=== PATIENT | male | born 1955 | race Caucasian/White ===

== ENCOUNTER 2019-11-29 13:55 | Inpatient (IN) ==
[2019-11-29] MEDS ORDERED: NS 1,000 ML IV ONE (14:21)
[2019-11-29 14:52] LABS: URINE SOURCE CATH
[2019-11-29 14:59] LABS: BILIRUBIN URINE NEGATIVE (NEGATIVE); BLOOD URINE NEGATIVE (NEGATIVE); CLARITY CLEAR (CLEAR); COLOR YELLOW; GLUCOSE URINE 100 mg/dL (NEGATIVE); KETONE URINE NEGATIVE (NEGATIVE); LEUKOCYTES URINE NEGATIVE (NEGATIVE); NITRITE URINE NEGATIVE (NEGATIVE); PH URINE 5.5; PROTEIN URINE NEGATIVE (NEGATIVE); SP GRAVITY URINE 1.015; UROBILINOGEN URINE 0.2 EU/dL (0.2-1.0)
[2019-11-29 14:59] LABS: BASO# 0.02 X1000 (0.0-0.2); BASO% 0.1 % (0.0-0.8); EOS# 0.05 X1000 (0.0-0.7); EOS% 0.2 % (0.0-10.0); HEMATOCRIT 44.1 % (42.0-52.0); HEMOGLOBIN 14.7 g/dL (14.0-18.0); IMM GRAN# 0.17 X1000 (0.0-0.04); IMM GRAN% 0.8 % (0.0-0.5); LYMPH# 2.74 X1000 (1.2-3.4); LYMPH% 13.5 % (20.5-51.1); MCH 32.7 PG (27-31); MCHC 33.3 g/dL (33-37); MCV 98.2 FL (81-99); MONO# 1.12 X1000 (0.11-0.59); MONO% 5.5 % (1.7-9.3); MPV 10.8 FL (7.4-10.4); NEUT# 16.27 X1000 (1.4-6.5); NEUT% 79.9 % (42.2-75.2); PLT 311 X1000 (130-400); RBC 4.49 XMIL (4.7-6.1); RDW 13.3 % (11.5-14.5); WBC 20.37 X1000 (4.8-10.8)
[2019-11-29 15:05] LABS: INR 1.37; PROTIME 17.1 Seconds (11.0-16.0); PTT 29.3 Seconds (22.3-41.8)
[2019-11-29 15:09] LABS: UR AMPHETAMINES QUAL NONE DETECTED (NONE DETECT); UR BARBITUATES QUAL NONE DETECTED (NONE DETECT); UR BENZODIAZEPIN QUAL NONE DETECTED (NONE DETECT); UR CANNABINOIDS QUAL NONE DETECTED (NONE DETECT); UR COCAINE QUAL NONE DETECTED (NONE DETECT); UR METHADONE QUAL NONE DETECTED (NONE DETECT); UR OPIATES QUAL NONE DETECTED (NONE DETECT); UR OXYCODONE QUAL NONE DETECTED (NONE DETECT); UR PCP QUAL NONE DETECTED (NONE DETECT)
[2019-11-29 15:15] LABS: URINE BACTERIA NEGATIVE /HFP; URINE EPITHELIAL CELLS <10 /HPF (<10); URINE RBC <10 /HPF (<10); URINE WBC <10 /HPF (<10)
[2019-11-29 15:16] LABS: URINE CAST NONE SEEN /LPF; URINE CRYSTAL NONE SEEN /HPF; URINE YEAST NONE SEEN /HPF
--- NOTE | 2019-11-29 15:16 | Diag Imaging Result Doc PS360 ---
EXAM: CHEST-PORTABLE HISTORY: altered mental status TECHNIQUE: Single view COMPARISON: None. FINDINGS: The lungs are well expanded. The heart is not enlarged. The vessels are not distended. There are no infiltrates. No effusion identified. IMPRESSION: Negative exam. Electronically signed by Shan De 11/29/2019 3:14 PM
[2019-11-29 15:21] LABS: ALB/GLOB RATIO 1.2; ALBUMIN 3.9 g/dL (3.5-5.0); CALCIUM 9.2 mg/dL (8.8-10.2); MAGNESIUM 2.7 mg/dL (1.5-2.7); POTASSIUM 3.7 mmol/L (3.5-5.1); TOTAL BILIRUBIN 0.18 mg/dL (0.20-1.00); TOTAL PROTEIN 7.1 g/dL (6.3-8.3)
--- NOTE | 2019-11-29 15:22 | Diag Imaging Result Doc PS360 ---
EXAM: CT HEAD W/O CONTRAST HISTORY: Head injury TECHNIQUE: CT head without intravenous contrast COMPARISON: None. FINDINGS: No parenchymal hemorrhage. No epidural or subdural hematoma. No subarachnoid hemorrhage. There is mild atrophy with chronic microvascular ischemic changes. No mass identified on this noncontrasted exam. No hydrocephalus. No skull fracture. IMPRESSION: No hemorrhage. No injury. This exam was performed using automated exposure control, adjustment of mA or kV according to patient size, and/or use of iterative reconstruction technique. Electronically signed by Shan De 11/29/2019 3:20 PM
[2019-11-29 15:26] LABS: T4 4.05 ug/dL (4.60-12.00); TSH 2.68 uIUmL (0.27-4.20)
[2019-11-29 15:28] LABS: ALLEN TEST YES; BLOOD TYPE ARTERIAL; METHB 0.8 % (0.0-1.5); O2(CT) 18.9 mL/dL (15.0-23.0); PCO2(98.6) 16 mmHg (35-45); PO2(98.6) 173 mmHg (60-100); SAMPLE BLOOD; SAO2 99.3 % (95.0-100.0); THB 13.6 g/dL (11.5-17.4)
[2019-11-29 15:31] LABS: LACTATE > 20.00 mmoll (0.44-2.22); MODALITY ROOM AIR; pH(98.6) < 6.80 (7.35-7.45)
[2019-11-29] MEDS ORDERED: SOLU-CORTEF IV ONE (15:42)
[2019-11-29] MEDS ORDERED: SODIUM CHLORIDE 0.9% INJ ONE (15:42)
[2019-11-29] MEDS ORDERED: SYNTHROID IV ONE (15:42)
[2019-11-29] MEDS ORDERED: ZOSYN 3.375 GM in NS 50 ML IV ONE (15:43)
[2019-11-29] MEDS ORDERED: SODIUM BICARBONATE 8.4% IV ONE (15:43)
[2019-11-29 15:45] LABS: CK INDEX 0.6 (0.0-2.5); CK-MB 23.36 ng/mL (0.0-5.0)
[2019-11-29] MEDS ORDERED: 1/2 NS 1,000 ML IV ONE (15:50)
[2019-11-29] MEDS ORDERED: THIAMINE 100 MG in NS 50 ML IV ONE (15:58)
--- NOTE | 2019-11-29 16:24 | PROVIDER DOCUMENTATION ---
This chart was entered by Jael Fritz Scribe, acting as scribe for Luis M Schmid MD. HPI-General Adult - General Chief Complaint: Altered Mental Status Stated Complaint: ETOH Time Seen by Provider: 11/29/19 14:14 Source: family (daughter and sister), EMS Unable to obtain history due to:: altered Allergies/Adverse Reactions: Patient Allergies Allergy/AdvReac Type Severity Reaction Status Date / Time No Known Allergies Allergy Verified 07/03/13 02:07 Home Medications: Home Medication List Medication Instructions Recorded Confirmed Last Taken Type AMLODIPINE/BENAZEpril [Lotrel 03/10 1 each PO DAILY #30 capsule 07/01/13 07/03/13 Unknown Rx mg] Glimepiride [Amaryl] 4 mg PO AC + HS 30 Days tablet 07/01/13 07/03/13 07/02/13 21:00 Rx Insulin Glargine [Lantus] 25 unit SUBQ DAILY #1 vial 07/01/13 07/03/13 Unknown Rx Syringe,Needle,Insuln,Sf 0.5ML 1 each QAM #10 disp.syrin 07/01/13 07/03/13 Unknown Rx [Easy Touch Insulin Safety] Ciprofloxacin HCl [Cipro] 500 mg PO BID #20 tablet 10/20/17 Unknown Rx Finasteride [Proscar] 5 mg PO DAILY #90 tablet 10/20/17 Unknown Rx Tamsulosin [Flomax] 0.4 mg PO DAILY #90 capsule 10/20/17 Unknown Rx - History of Present Illness -Gen Adult Nature of Presenting Problems: 64yom presents to ED by EMS cc possible ETOH according to EMS. EMS reports they were called by a neighbor of pt who brought him food and found pt passed out under bed and whiskey bottles all over floor. EMS reports pt had no heat on in house. 3pm....Daughter and Sister are now at bedside and report pt has hx of alcoholism and yesterday posted on FB that he was really missing his who a long time ago. Daughter denies pt having access to any pills that he could OD on and says he drinks regularly claiming it regulates his blood sugar so he doesn't have to take blood sugar pills. Daughter reports pt has no utilities connected at his house, uses a generator but when weather gets really cold he stays in one of her homes but didn't last night. Pt b/p is 86/47 and rectal temp is 85 in ED. Pt has smell of alcohol on breath and very agitated upon exam. Pt has hx of HTN and DM. Similar Symptoms Previously?: No Recently seen or treated by another doctor?: No Review of Systems - Adult - REVIEW OF SYSTEMS - ADULT ROS:: unobtainable per condition Constitutional: reports: see HPI Eyes: reports: see HPI Ears, Nose, Mouth & Throat: reports: see HPI Cardiovascular: reports: see HPI Respiratory: reports: see HPI Gastrointestinal: reports: see HPI Genitourinary: reports: see HPI Musculoskeletal: reports: see HPI Integumentary: reports: see HPI Neurological: reports: see HPI Psychiatric: reports: see HPI Endocrine: reports: see HPI Hematologic/Lymphatic: reports: see HPI Allergic/Immunologic: reports: see HPI All Other Systems: Reviewed and Negative Past History - Adult - PAST MEDICAL HISTORY-ADULT Review of Records: reports: Old Records Reviewed, Nursing Assessment Review, Medications Reviewed, Social history reviewed & non-contributory. Major Childhood Illnesses: reports: denies history Cardiovascular: reports: HTN Respiratory: reports: denies history Gastrointestinal: reports: denies history Obstetrical/Gynecological: reports: denies history Genitourinary: reports: denies history Musculoskeletal: reports: denies history Neurological: reports: denies history Endocrine/Immune: reports: Diabetes Other Conditions: reports: denies history - IMMUNIZATION STATUS Childhood Immunizations: See Nurse Assessment Flu Vaccine: See Nurse Assessment - FAMILY HISTORY Family History: reviewed, not pertinent Physical Exam-General - PHYSICAL EXAM-ADULT Exam Limited by: pt very agitated, moving all over Initial Vital Signs Reviewed: Yes - CONSTITUTIONAL General Appearance: anxious - EYES Eyes: PERRL/EOMI, pink conjunctivae - HEAD, EARS, NOSE, MOUTH & THROAT HENMT: normocephalic/atraumatic, moist mucous membranes - NECK Neck: supple, normal inspection - RESPIRATORY Respiratory: chest non-tender, lungs clear, normal breath sounds. negative: wheezing - CARDIOVASCULAR Cardiovascular: normal peripheral pulses, regular rate, rhythm, no edema. negative: bradycardia, tachycardia - SKIN Integumentary: normal color. negative: diaphoresis, rash - PSYCHIATRIC Psych/Mental Status: anxious Progress - PLAN OF CARE/RESULTS Progress/Plan/Lab Results: Vital Signs - 8 hr 11/29/19 13:56 Temperature 85 F L Pulse Rate 66 Respiratory Rate 16 Blood Pressure 86/47 O2 Sat by Pulse Oximetry 98 Laboratory Results - last 24 hr 11/29/19 11/29/19 11/29/19 14:10 14:10 14:10 WBC 20.37 H RBC 4.49 L Hgb 14.7 Hct 44.1 MCV 98.2 MCH 32.7 H MCHC 33.3 RDW Std Deviation 13.3 Plt Count 311 MPV 10.8 H Immature Gran % (Auto) 0.8 H Neut % (Auto) 79.9 H Lymph % (Auto) 13.5 L [place] % (Auto) 5.5 Eos % (Auto) 0.2 Baso % (Auto) 0.1 Immature Gran # (Auto) 0.17 H Neut # (Auto) 16.27 H Lymph # (Auto) 2.74 [place] # (Auto) 1.12 H Eos # (Auto) 0.05 Baso # (Auto) 0.02 PT INR PTT ([place] FS) Sodium Potassium Chloride Carbon Dioxide Anion Gap BUN Creatinine Estimated GFR/1.73 m2 BUN/Creatinine Ratio Glucose POC Glucose 129 H Calculated Osmolality Calcium Magnesium Total Bilirubin AST ALT Alkaline Phosphatase Creatine Kinase Troponin T High Sens Total Protein Albumin Globulin Albumin/Globulin Ratio Plasma Lactate Urine Source Urine Color Urine Clarity Urine Turbidity Urine pH Ur Specific [place] Urine Protein Ur Glucose (Stick) Urine Ketones Ur Ketones (Stick) Urine Blood Urine Nitrite Urine Bilirubin Urine Urobilinogen Urobilinogen Dipstick Urine Leukocytes Urine WBC (Auto) Urine RBC (Auto) U Epithel Cells (Auto) Urine Bacteria (Auto) Urine Microscopic RBC Urine WBC Urine Microscopic WBC Ur Epithelial Cells Urine Crystals Urine Bacteria Urine Casts Urine Yeast Urine Glucose Urine Opiates Screen Ur Oxycodone Screen Ur Methadone, Qual Ur Barbiturates Screen Ur Phencyclidine Scrn Ur Amphetamines Screen U Benzodiazepines Scrn Urine Cocaine Screen U Cannabinoids Screen Plasma/Serum Ethyl Alc 300 H 11/29/19 11/29/19 11/29/19 14:10 14:10 14:10 WBC RBC Hgb Hct MCV MCH MCHC RDW Std Deviation Plt Count MPV Immature Gran % (Auto) Neut % (Auto) Lymph % (Auto) [place] % (Auto) Eos % (Auto) Baso % (Auto) Immature Gran # (Auto) Neut # (Auto) Lymph # (Auto) [place] # (Auto) Eos # (Auto) Baso # (Auto) PT 17.1 H INR 1.37 PTT (Actin FS) 29.3 Sodium 150 H Potassium 3.7 Chloride 100 Carbon Dioxide 3 L Anion Gap 47 BUN 35 H Creatinine 2.0 H Estimated GFR/1.73 m2 30 BUN/Creatinine Ratio 18 Glucose 159 H POC Glucose Calculated Osmolality 309 Calcium 9.2 Magnesium 2.7 Total Bilirubin 0.18 L AST 88 H ALT 41 Alkaline Phosphatase 90 Creatine Kinase 3440 H Troponin T High Sens Total Protein 7.1 Albumin 3.9 Globulin 3.2 Albumin/Globulin Ratio 1.2 Plasma Lactate 28.3 H* Urine Source Urine Color Urine Clarity Urine Turbidity Urine pH Ur Specific [place] Urine Protein Ur Glucose (Stick) Urine Ketones Ur Ketones (Stick) Urine Blood Urine Nitrite Urine Bilirubin Urine Urobilinogen Urobilinogen Dipstick Urine Leukocytes Urine WBC (Auto) Urine RBC (Auto) U Epithel Cells (Auto) Urine Bacteria (Auto) Urine Microscopic RBC Urine WBC Urine Microscopic WBC Ur Epithelial Cells Urine Crystals Urine Bacteria Urine Casts Urine Yeast Urine Glucose Urine Opiates Screen Ur Oxycodone Screen Ur Methadone, Qual Ur Barbiturates Screen Ur Phencyclidine Scrn Ur Amphetamines Screen U Benzodiazepines Scrn Urine Cocaine Screen U Cannabinoids Screen Plasma/Serum Ethyl Alc 11/29/19 11/29/19 11/29/19 14:10 14:30 14:30 WBC RBC Hgb Hct MCV MCH MCHC RDW Std Deviation Plt Count MPV Immature Gran % (Auto) Neut % (Auto) Lymph % (Auto) [place] % (Auto) Eos % (Auto) Baso % (Auto) Immature Gran # (Auto) Neut # (Auto) Lymph # (Auto) [place] # (Auto) Eos # (Auto) Baso # (Auto) PT INR PTT (Actin FS) Sodium Potassium Chloride Carbon Dioxide Anion Gap BUN Creatinine Estimated GFR/1.73 m2 BUN/Creatinine Ratio Glucose POC Glucose Calculated Osmolality Calcium Magnesium Total Bilirubin AST ALT Alkaline Phosphatase Creatine Kinase Troponin T High Sens 23 H Total Protein Albumin Globulin Albumin/Globulin Ratio Plasma Lactate Urine Source Cancelled Urine Color Cancelled Urine Clarity Urine Turbidity Cancelled Urine pH Cancelled Ur Specific [place] Cancelled Urine Protein Cancelled Ur Glucose (Stick) Cancelled Urine Ketones Ur Ketones (Stick) Cancelled Urine Blood Cancelled Urine Nitrite Cancelled Urine Bilirubin Cancelled Urine Urobilinogen Urobilinogen Dipstick Cancelled Urine Leukocytes Cancelled Urine WBC (Auto) Cancelled Urine RBC (Auto) Cancelled U Epithel Cells (Auto) Cancelled Urine Bacteria (Auto) Cancelled Urine Microscopic RBC Urine WBC Urine Microscopic WBC Ur Epithelial Cells Urine Crystals Urine Bacteria Urine Casts Urine Yeast Urine Glucose Urine Opiates Screen NONE DETECTED Ur Oxycodone Screen NONE DETECTED Ur Methadone, Qual NONE DETECTED Ur Barbiturates Screen NONE DETECTED Ur Phencyclidine Scrn NONE DETECTED Ur Amphetamines Screen NONE DETECTED U Benzodiazepines Scrn NONE DETECTED Urine Cocaine Screen NONE DETECTED U Cannabinoids Screen NONE DETECTED Plasma/Serum Ethyl Alc 11/29/19 14:30 WBC RBC Hgb Hct MCV MCH MCHC RDW Std Deviation Plt Count MPV Immature Gran % (Auto) Neut % (Auto) Lymph % (Auto) [place] % (Auto) Eos % (Auto) Baso % (Auto) Immature Gran # (Auto) Neut # (Auto) Lymph # (Auto) [place] # (Auto) Eos # (Auto) Baso # (Auto) PT INR PTT (Actin FS) Sodium Potassium Chloride Carbon Dioxide Anion Gap BUN Creatinine Estimated GFR/1.73 m2 BUN/Creatinine Ratio Glucose POC Glucose Calculated Osmolality Calcium Magnesium Total Bilirubin AST ALT Alkaline Phosphatase Creatine Kinase Troponin T High Sens Total Protein Albumin Globulin Albumin/Globulin Ratio Plasma Lactate Urine Source CATH Urine Color YELLOW Urine Clarity CLEAR Urine Turbidity Urine pH 5.5 Ur Specific [place] 1.015 Urine Protein NEGATIVE Ur Glucose (Stick) Urine Ketones NEGATIVE Ur Ketones (Stick) Urine Blood NEGATIVE Urine Nitrite NEGATIVE Urine Bilirubin NEGATIVE Urine Urobilinogen 0.2 Urobilinogen Dipstick Urine Leukocytes Urine WBC (Auto) Urine RBC (Auto) U Epithel Cells (Auto) Urine Bacteria (Auto) Urine Microscopic RBC <10 Urine WBC NEGATIVE Urine Microscopic WBC <10 Ur Epithelial Cells <10 Urine Crystals NONE SEEN Urine Bacteria NEGATIVE Urine Casts NONE SEEN Urine Yeast NONE SEEN Urine Glucose 100 A Urine Opiates Screen Ur Oxycodone Screen Ur Methadone, Qual Ur Barbiturates Screen Ur Phencyclidine Scrn Ur Amphetamines Screen U Benzodiazepines Scrn Urine Cocaine Screen U Cannabinoids Screen Plasma/Serum Ethyl Alc Orders Category Date Time Status Cardiac Monitoring DIRECTED Care 11/29/19 14:19 Active Misc. NRSG Communication Order DIRECTED Care 11/29/19 14:22 Active Oxygen Therapy- ED Nursing DIRECTED Care 11/29/19 14:19 Active Saline Loc NOW Care 11/29/19 14:19 Active Warming [place] DIRECTED Care 11/29/19 14:21 Active CHEST-PORTABLE [RAD] Stat Exams 11/29/19 14:[address] HEAD W/O CONTRAST [CT] Stat Exams 11/29/19 14:19 Completed ABG [RESP] Routine Lab 11/29/19 14:19 Ordered ALCOHOL BLOOD Stat Lab 11/29/19 14:10 Completed BLOOD CULTURE [BLDCUL] Stat Lab 11/29/19 14:10 Ordered CBC WITH ELECTRONIC DIFF [HEME] Stat Lab 11/29/19 14:10 Completed CK PROFILE [SP CHEM] Stat Lab 11/29/19 14:10 Results COMPREHENSIVE METABOLIC PANEL [CHEM] Stat Lab 11/29/19 14:10 Results LACTATE, PLASMA [CHEM] Stat Lab 11/29/19 14:10 Completed MAGNESIUM [CHEM] Stat Lab 11/29/19 14:10 Results PROTIME WITH INR [COAG] Stat Lab 11/29/19 14:10 Completed PTT [COAG] Stat Lab 11/29/19 14:10 Completed T4 Stat Lab 11/29/19 14:10 Received TROPONIN T HIGH SENSITIVITY Stat Lab 11/29/19 14:10 Completed TSH Stat Lab 11/29/19 14:10 Received URINE DRUG SCREEN Stat Lab 11/29/19 14:30 Completed 0.9% Sodium Chloride Inj [Ns] 1,000 ml Med 11/29/19 14:21 Discontinued IV 999 mls/hr Altered Mental Status Stat Oth 11/29/19 14:19 Ordered EKG [EKG] Stat Ther 11/29/19 14:19 Ordered Result Diagrams: 11/29/19 14:10 11/29/19 14:10 - REASSESSMENT Reassessment #3 Time Reassessed: 16:15 Status: improving ((only as regards core temp): pt has profound metabolic acidemia as well as elev anion gap, however calc osm of 388 corresponds ~ well w/ mOsm reported @ 407; doubt methanol/eth-glycol ingestion. lab evidence of rhabdo, as well as ? hypothyroidism: pt given IV levothyroxine and cortisol, empiric thiamine and Zosyn w/ blood cultures pending. remains conscious, BP unchanged, warm IVF continue. will consult for ICU admission.) - XRAY 1 XRAY: Bilateral XRAY Study: Chest Impression: See EMR Report (IMPRESSION: Negative exam. Electronically signed by Shan De 11/29/2019 3:14 PM) - CT/MRI 1 CT Study: Head Impression: See EMR Report (IMPRESSION: No hemorrhage. No injury. This exam was performed using automated exposure control, adjustment of mA or kV according to patient size, and/or use of iterative reconstruction technique. Electronically signed by Shan De 11/29/2019 3:20 PM) - CONSULTS/PCP/HOSPITALIST Notification #1 *Consult/PCP/Hospitalist*: Lilia Time Discussed: 16:05 Consult Disposition: Will see in ED, Admit Departure - Departure Date of Disposition Decision: 11/29/19 Time of Disposition Decision: 16:22 DIAGNOSIS: Hypothermia due to cold environment, Hypothyroidism, Alcohol intoxication, Rhabdomyolysis, High anion gap metabolic acidosis Disposition: ADMITTED INPATIENT 09 Certified Medical Emergency: Emergent Condition: Critical Referrals and Follow-Ups: None,PCP [Primary Care Provider] - - Critical Care Note This patient required my direct & personal management of CC.: Yes Total Time (mins): 105 Critical Care Statement: This patient required my direct personal management to treat or rule out processes, the absence of which, could potentiallly result in sudden, clinically significant life or limb threatening deterioration. Attestation - Physician/ NAVEEN Attestation Patient care was provided by Advanced Practice Provider:: No The physician spent face to face time with patient:: Yes Advanced Practice Provider documentation review:: Supervising physician onsite and consulted in the evaluation and care of this patient. The physician did have a face to face encounter with the patient. This chart was documented by the indicated scribe, (Jael Fritz Scribe) and accurately reflects the services I performed and decisions made by me, Luis M Schmid MD, as attested by the provider's signature.
[2019-11-29 17:21] LABS: ALLEN TEST NO; BLOOD TYPE ARTERIAL; O2(CT) 17.6 mL/dL (15.0-23.0); O2HB 96.6 % (95.0-99.0); PO2(98.6) 162 mmHg (60-100); SAMPLE BLOOD; THB 12.7 g/dL (11.5-17.4)
[2019-11-29 17:24] LABS: MODALITY ROOM AIR
[2019-11-29 17:25] LABS: PCO2(98.6) 13 mmHg (35-45); pH(98.6) < 6.80 (7.35-7.45)
[2019-11-29 17:26] LABS: LACTATE > 20.00 mmoll (0.44-2.22)
[2019-11-29 17:40] LABS: PHOSPHORUS 8.9 mg/dL (2.7-4.5)
[2019-11-29] MEDS: LEVOPHED 8 MG in D5 1/2 NS 250 ML IV SCH ×2 (18:00→23:50)
[2019-11-29] MEDS: SODIUM BICARBONATE 8.4% 150 MEQ in STERILE WATER INJ. 1,000 ML IV SCH (18:00)
[2019-11-29] MEDS ORDERED: NEO-SYNEPHRINE 50 MG in NS 250 ML IV SCH (19:30)
[2019-11-29] MEDS: ZYVOX 600 MG/D5W 600 MG/300 ML IVPB IV SCH (20:58)
[2019-11-29] MEDS: HUMALOG SUBQ SCH (21:00)
[2019-11-29 21:01] LABS: ALLEN TEST YES; BLOOD TYPE ARTERIAL; METHB 0.9 % (0.0-1.5); O2(CT) 17.9 mL/dL (15.0-23.0); PO2(98.6) 111 mmHg (60-100); SAMPLE BLOOD; SAO2 95.5 % (95.0-100.0); THB 13.6 g/dL (11.5-17.4)
[2019-11-29 21:07] LABS: MODALITY ROOM AIR
[2019-11-29 21:08] LABS: LACTATE > 20.00 mmoll (0.44-2.22); PCO2(98.6) 18 mmHg (35-45); pH(98.6) < 6.80 (7.35-7.45)
--- NOTE | 2019-11-29 21:25 | NEPHROLOGY CONSULTATION ---
DATE: 11/29/2019 REASON FOR CONSULTATION: Profound metabolic acidosis. History is obtained entirely from the staff and the daughter. HISTORY OF PRESENT ILLNESS: Mr. Contreras is a 64-year-old white male with a history of diabetes and hypertension and alcoholism. He drinks gin and drinks heavily to the point of passing out rather frequently. He was last seen by his daughter a week ago but she communicated with him by texting on yesterday and he seemed normal. Friends found him unresponsive today so he was brought to the emergency room for evaluation and treatment. His initial evaluation found blood pressure of 86/47 with respiratory rate recorded of 16, temperature of 85 degrees. He has been treated with IV fluid resuscitation and empiric broad-spectrum antibiotics. CT of the head was negative and chest x-ray was unrevealing. He is now on IV norepinephrine and a bicarbonate drip is being initiated. PAST MEDICAL HISTORY: Diabetes and hypertension, alcoholism. MEDICATIONS: Glipizide, amlodipine, benazepril. ALLERGIES: None known. SOCIAL HISTORY: As above. Perhaps an allusion to possible suicidal ideation. FAMILY HISTORY: Otherwise not obtainable. REVIEW OF SYSTEMS: Otherwise not obtainable. PHYSICAL EXAMINATION: Vital Signs: Blood pressure 86/47, heart rate 80. Hypothermic. General: He has eyes open and moves arms, legs, head randomly. Kussmaul breathing. Skin is warm and dry. Conjunctivae are pink. Pupils are equal, somewhat constricted. Oropharynx is clear, dry. Neck: Neck veins are not visible. Neck is supple. Trachea is midline. Heart: PMI is nondisplaced. Regular rate and rhythm. No murmurs. Lungs: Equal. No crackles. Accessory muscle use. No retractions. Abdomen: Scaphoid, soft. Diminished bowel sounds. No organomegaly, masses, no bruits. Extremities: No edema. Distal pulses not palpable. IMPRESSION: 1. Profound lactic acidosis. Osmolal gap is 4. He has not received metformin. I agree with aggressive volume resuscitation, bicarbonate drip, vasopressor support, broad-spectrum antibiotics. Presumed sepsis. I would consider CT scan of the abdomen when he is stable. His CK was 3700. We will follow this. Creatinine is 2.0 with BUN 35. Will reevaluate. He is at high risk for acute tubular necrosis. cc: Anshu Nelson MD
[2019-11-29 22:09] LABS: INR 1.53; PROTIME 18.6 Seconds (11.0-16.0)
[2019-11-29] MEDS ORDERED: SODIUM BICARBONATE 8.4% IV PUSH ONE (22:11)
[2019-11-29 22:20] LABS: ALB/GLOB RATIO 1.2; ALBUMIN 3.4 g/dL (3.5-5.0); CALCIUM 8.7 mg/dL (8.8-10.2); CREATININE 2.5 mg/dL (0.7-1.2); TOTAL BILIRUBIN 0.39 mg/dL (0.20-1.00); TOTAL PROTEIN 6.2 g/dL (6.3-8.3)
--- NOTE | 2019-11-29 23:59 | PROGRESS NOTE ---
DATE: 11/29/2019 HISTORY AND PHYSICAL ADDENDUM AND CRITICAL CARE PROGRESS NOTE: Patient brought in after being found largely unresponsive. On initial evaluation, he was found to be profoundly acidemic with pH less than 6.8, and profound lactic acidosis with a lactic acid of 28.3. On recheck, lactic acid remains greater than 20 and pH remains less than 6.8, despite fluids with bicarb, antibiotics, etc. Discussed the case with Nephrology and they do not believe that there is any role for dialysis here. They did recommend elective intubation as the patient's mental status has worsened, and He is not really protecting his airway very well. I discussed elective intubation with family and they are refusing at this time. However, they wish him to be full code in the event of an arrest, including intubation if it is emergently necessary but, again, clarified that they are refusing elective intubation at this time. Discussed that it is more likely to go poorly if we have to emergently intubate him in the middle of the night because he is crashing rather than intubating in a controlled fashion now but they remained adamant. The patient is on empiric antibiotics but the exact etiology of his profound lactic acidosis remains uncertain. There is no sign of limb ischemia or compartment syndrome. The abdomen is benign. mesenteric ischemia is a possibility but it would be difficult to evaluate for right now. We will see if we can get an ultrasound to assess blood flow to the mesentery, but that is likely to be of limited use. On reassessment, the patient's blood pressure remains low. He has been started on Levophed. Nearing max dose of Levophed, so we will also order Kj in case it becomes needed. Hypothermia is improving slowly, although he remains hypothermic. Increased bicarb drip to sterile water with 150 bicarb at 150 mL/h. Continue aggressive antibiotics, fluids, bicarb and monitor closely. Patient prognosis guarded to poor. TOTAL CRITICAL CARE: Time spent immediately available to the patient, examining patient, reviewing labs and imaging, and making medical decisions, approximately 1 hour. [facility]
--- NOTE | 2019-11-30 00:40 | HISTORY AND PHYSICAL ---
PRIMARY CARE PHYSICIAN: Tahira Garrett MD. CHIEF COMPLAINT: Unresponsive. HISTORY OF PRESENT ILLNESS: Mr. Roque is a 64-year-old gentleman who was brought in by EMS after they were called by a neighbor. The patient was found down, unresponsive with whiskey bottles all over the floor. There is no heat in his residence. Initial blood pressures were 80s/40s, his rectal temperature was 85. He was initially very agitated. Further workup in the ED showed a profound acidosis, an alcohol level of 300, a plasma lactate of 28, a CK of 3737, and a pH of less than 6.8. He has a started on the initial rewarming process. He underwent a head CT that did not show anything acute. He was empirically covered with antibiotics, given sodium bicarbonate, IV thiamine, IV levothyroxine, hydrocortisone. We have placed a consult with Dr. Nelson and currently rechecking an ABG. Surprisingly, he remains awake. He will follow some commands. He does not answer any questions really. He is profoundly dehydrated. We will admit him to the ICU. Continue with bicarb drip. Await Nephrology recommendations. Continue to follow his laboratory data closely and continue with further treatment and care. Monitor Closely in ICU. PAST MEDICAL HISTORY: Hypertension, diabetes mellitus type 2, alcohol abuse. FAMILY HISTORY: Father was murdered. Mother of cancer in 1978. SOCIAL HISTORY: He is a of 20 something years. He is an alcoholic. He drinks gin. Per daughter at bedside, he only drinks sips. However, per other family members and EMS point of view with bottles of empty gin in the house, it would appear that his drinking is more than that. They also report that he did leave a message on mylearnadfriend about missing his yesterday, but they denied him having access to any pills or overdosing. PAST SURGICAL HISTORY: None. MEDICATIONS: Amlodipine 10 mg p.o. daily, glipizide ER 5 mg tablet p.o. once daily, benazepril 20 mg p.o. once a day. ALLERGIES: No known drug allergies. REVIEW OF SYSTEMS: Hard to obtain secondary to the patient being altered. He is awake. He does look at you when you ask him questions. He does try to answer, but not correctly. He does attempt to squeeze hands. He is moving all his extremities. He is currently restrained with wrist restraints secondary to being agitated on arrival. PHYSICAL EXAMINATION: VITAL SIGNS: Initial rectal temperature was 85, heart rate 85, pulse 66, respirations 16, blood pressure was 86/47, O2 saturation was 98% on room air. GENERAL: Mr. Roque is a 64-year-old, unkempt, male lying on the stretcher. Penny Hugger in place. HEENT: Atraumatic, normocephalic. PERRL. Poor dentition. Mucous membranes are extremely dry. CARDIOVASCULAR: Irregularly, irregular. RESPIRATORY: Lung sounds clear bilaterally. ABDOMEN: Appeared to be soft, nontender, nondistended. EXTREMITIES: Lower extremities with faint pedal pulses. NEUROLOGIC: Again, patient was awake, did not really answer any questions. He would look at you, though, if you are talking to him. He did try to squeeze your hands. He was moving his extremities but still somewhat altered. DIAGNOSTIC DATA: 1. Chest x-ray, negative exam. 2. Head CT, no hemorrhage, no injury. LABORATORY DATA: White count 20, hemoglobin and hematocrit 14 and 44, platelet count is 311,000. ABG: The pH is less than 6.80, CO2 is 16, pO2 is 173, O2 saturation was 99% on room air. Lactate was greater than 20. Chemistry: Sodium 150, potassium 3.7, bicarb is 3, BUN 35, creatinine 2.0. Blood glucose is 159, AST 88. CK 3737. Plasma lactate was 28.3. TSH 2.68, T4 was 4.05. ASSESSMENT AND PLAN: 1. Profound High anion gap and metabolic acidosis. Unclear and probable multiple etiologies at this time. We have consulted Dr. Nelson for assistance. He has been given 2 amps of sodium bicarb. We have started him on a bicarb drip. We will do serial ABGs, serial CMPs. 2. Hypothermia due to cold environment. Rectal temp 85. They are slowly rewarming him with warming blankets and Penny Hugger. We will do serial PT and INRs. 3. Alcohol intoxication. Known Alcohol use, Alcohol level 300. We will recheck his alcohol level in the a.m. He was given IV thiamin, probably wait to initiate banana bags in the a.m. 4. Rhabdomyolysis. We will continue with IV hydration. 5. Hypothyroidism. He was given IV levothyroxine. 6. Hypotension. We have initiated him on levophed. 7. Extremely elevated plasma lactate. We will empirically cover him with Zyvox and Zosyn, cover him for aspiration pneumonia. We do not have any clear signs of infection at this time. 8. Diabetes mellitus. We will watch his blood sugars closely. His acetone level was negative. His blood glucose level is not that high, however, we will check a serum ketone level, currently pending. Check his blood sugars q.[address] him on sliding scale. 9. Further recommendation to follow physician evaluation, laboratory data and diagnostic data. Dictated by DILMA Hennessy for Chris Johnson MD cc: Tahira Garrett MD agree with the above. see separate critical care documentation. MTDD
[2019-11-30 00:55] LABS: ALLEN TEST YES; BLOOD TYPE ARTERIAL; METHB 0.9 % (0.0-1.5); O2(CT) 16.8 mL/dL (15.0-23.0); O2HB 92.1 % (95.0-99.0); PCO2(98.6) 32 mmHg (35-45); PO2(98.6) 95 mmHg (60-100); SAMPLE BLOOD; SAO2 94.8 % (95.0-100.0); THB 12.9 g/dL (11.5-17.4)
[2019-11-30 00:56] LABS: MODALITY CANNULA
[2019-11-30 01:00] LABS: pH(98.6) < 6.80 (7.35-7.45)
[2019-11-30 01:01] LABS: LACTATE > 20.00 mmoll (0.44-2.22)
[2019-11-30] MEDS: ZOSYN 2.25 GM in NS 50 ML IV SCH ×3 (01:03→20:06)
[2019-11-30 01:37] LABS: INR 1.52; PROTIME 18.6 Seconds (11.0-16.0)
[2019-11-30] MEDS ORDERED: SODIUM BICARBONATE 8.4% IV PUSH ONE (01:50)
[2019-11-30 01:57] LABS: ALB/GLOB RATIO 1.5; ALBUMIN 3.2 g/dL (3.5-5.0); CALCIUM 8.6 mg/dL (8.8-10.2); CREATININE 2.9 mg/dL (0.7-1.2); POTASSIUM 5.6 mmol/L (3.5-5.1); TOTAL BILIRUBIN 0.44 mg/dL (0.20-1.00); TOTAL PROTEIN 5.4 g/dL (6.3-8.3)
[2019-11-30] MEDS: SODIUM BICARBONATE 8.4% 150 MEQ in STERILE WATER INJ. 1,000 ML IV SCH ×3 (03:03→18:44)
[2019-11-30] MEDS ORDERED: LASIX IV ONE (04:36)
[2019-11-30] MEDS: LEVOPHED 8 MG in D5 1/2 NS 250 ML IV SCH ×3 (05:04→23:40)
[2019-11-30] MEDS: PITRESSIN 40 UNIT in NS 100 ML IV SCH ×2 (05:06→21:07)
[2019-11-30 05:23] LABS: ALLEN TEST YES; BLOOD TYPE ARTERIAL; PCO2(98.6) 68 mmHg (35-45); PO2(98.6) 64 mmHg (60-100); SAMPLE BLOOD; SAO2 87.8 % (95.0-100.0); THB 12.5 g/dL (11.5-17.4)
[2019-11-30 05:25] LABS: LACTATE > 20.00 mmoll (0.44-2.22); MODALITY VENTIMASK; O2HB 85.1 % (95.0-99.0); pH(98.6) < 6.80 (7.35-7.45)
[2019-11-30 06:13] LABS: INR 1.57; PROTIME 19.1 Seconds (11.0-16.0)
[2019-11-30 06:28] LABS: BASO# 0.02 X1000 (0.0-0.2); BASO% 0.1 % (0.0-0.8); HEMATOCRIT 39.1 % (42.0-52.0); HEMOGLOBIN 12.3 g/dL (14.0-18.0); LYMPH# 1.69 X1000 (1.2-3.4); LYMPH% 6.8 % (20.5-51.1); MCH 32.5 PG (27-31); MCHC 31.5 g/dL (33-37); MCV 103.2 FL (81-99); MONO% 7.6 % (1.7-9.3); MPV 10.7 FL (7.4-10.4); PLT 284 X1000 (130-400); RBC 3.79 XMIL (4.7-6.1); RDW 13.7 % (11.5-14.5); WBC 24.86 X1000 (4.8-10.8)
[2019-11-30 06:58] LABS: ESTIMATED GFR 18
[2019-11-30] MEDS: HUMALOG SUBQ SCH ×5 (07:00→21:32)
[2019-11-30 07:03] LABS: ALB/GLOB RATIO 1.5; ALBUMIN 3.2 g/dL (3.5-5.0); ALKALINE PHOSPHATASE 83 U/L (32-122); BUN 47 mg/dL (8-22); CALCIUM 8.1 mg/dL (8.8-10.2); CHLORIDE 91 mmol/L (98-107); COSMO 321; CREATININE 3.5 mg/dL (0.7-1.2); GLUCOSE 225 mg/dL (70-104); GOT 346 U/L (10-34); GPT 106 U/L (10-44); POTASSIUM 5.7 mmol/L (3.5-5.1); SODIUM 152 mmol/L (136-145); TCO2 10 mmol/L (25-35); TOTAL BILIRUBIN 0.57 mg/dL (0.20-1.00); TOTAL PROTEIN 5.3 g/dL (6.3-8.3)
--- NOTE | 2019-11-30 07:08 | Diag Imaging Result Doc PS360 ---
EXAM: CHEST-PORTABLE 11/30/2019 HISTORY: hypoxia,crackles bilaterally TECHNIQUE: AP portable at 0422 COMMENT: The inspiration is less optimal than on 11/29/2019. There are bibasilar opacities which were not previously present. There is increased pulmonary vascularity. IMPRESSION: Bibasilar pulmonary edema versus pneumonia plus minus atelectasis. Electronically signed by Phillip Carter 11/30/2019 7:06 AM
[2019-11-30 07:19] LABS: LYMPHS 6 % (21-51); SEGS 94 % (42-75)
[2019-11-30] MEDS: ZYVOX 600 MG/D5W 600 MG/300 ML IVPB IV SCH ×2 (07:36→18:12)
[2019-11-30] MEDS ORDERED: QUELICIN IV ONE (09:37)
[2019-11-30] MEDS ORDERED: AMIDATE IV ONE (09:37)
[2019-11-30] MEDS ORDERED: AMIDATE ONE (09:43)
[2019-11-30] MEDS ORDERED: QUELICIN ONE (09:43)
[2019-11-30] MEDS ORDERED: NORCURON ONE (09:51)
[2019-11-30] MEDS ORDERED: STERILE WATER INJ. ONE (09:52)
[2019-11-30] MEDS ORDERED: ZEMURON IV ONE ×2 (10:00→10:54)
[2019-11-30] MEDS: NEO-SYNEPHRINE 50 MG in NS 250 ML IV SCH ×2 (10:25→18:12)
--- NOTE | 2019-11-30 10:34 | EKG Report ---
Test Performed on : 11/30/2019 06:43:38 AM Test Reason : chest pain Blood Pressure : / mmHG Vent. Rate : 098 BPM Atrial Rate : 098 BPM P-R Int : 150 ms QRS Dur : 108 ms QT Int : 360 ms P-R-T Axes : 050 042 029 degrees QTc Int : 459 ms Normal sinus rhythm. Normal ECG When compared with ECG of 29-NOV-2019 15:45, (Unconfirmed) Sinus rhythm. has replaced Atrial fibrillation. ST no longer elevated in Inferior leads QT has shortened Unconfirmed Result
[2019-11-30] MEDS ORDERED: NORCURON IV ONE (11:05)
--- NOTE | 2019-11-30 11:10 | Diag Imaging Result Doc PS360 ---
EXAM: CHEST-PORTABLE 11/30/2019 HISTORY: intubation/ngt TECHNIQUE: AP portable at 1058 COMMENT: The NG tube is apparently doubled up in the upper esophagus. Endotracheal tube tip is at or slightly below the thoracic inlet. IMPRESSION: NG tube which is not in the stomach. Electronically signed by Phillip Carter 11/30/2019 11:08 AM
[2019-11-30 11:28] LABS: ALLEN TEST NO; BE -19.8 mmoll (-3.0-3.0); BLOOD TYPE ARTERIAL; HCO3-(ACT) 9.4 mmoll (20.0-26.0); METHB 1.3 % (0.0-1.5); PCO2(98.6) 39 mmHg (35-45); PO2(98.6) 84 mmHg (60-100); SAMPLE BLOOD; SRATE 24 BPM; THB 12.7 g/dL (11.5-17.4); TVOL 500 mL
[2019-11-30 11:31] LABS: LACTATE > 20.00 mmoll (0.44-2.22); MODALITY VENTILATOR; pH(98.6) 7.03 (7.35-7.45)
--- NOTE | 2019-11-30 12:21 | Diag Imaging Result Doc PS360 ---
EXAM: CHEST/ABD TUBE PLACEMENT 11/30/2019 HISTORY: ngt placement TECHNIQUE: AP chest and abdomen for NG tube placement, one view COMMENT: There is an NG tube with its tip in the distal stomach. IMPRESSION: NG tube in the stomach. Electronically signed by Phillip Carter 11/30/2019 12:19 PM
[2019-11-30] MEDS: FENTANYL 1,000 MICROGM in NS 80 ML IV SCH ×4 (14:14→23:40)
[2019-11-30 16:14] LABS: ALLEN TEST NO; BE -11.6 mmoll (-3.0-3.0); BLOOD TYPE ARTERIAL; HCO3-(ACT) 15.8 mmoll (20.0-26.0); METHB 1.2 % (0.0-1.5); O2(CT) 16.4 mL/dL (15.0-23.0); O2HB 93.1 % (95.0-99.0); PCO2(98.6) 39 mmHg (35-45); PO2(98.6) 67 mmHg (60-100); SAMPLE BLOOD; SAO2 95.7 % (95.0-100.0); SRATE 22 BPM; THB 12.5 g/dL (11.5-17.4); TVOL 500 mL; pH(98.6) 7.21 (7.35-7.45)
[2019-11-30 16:18] LABS: MODALITY VENTILATOR
--- NOTE | 2019-11-30 16:56 | PROGRESS NOTE ---
DATE: 11/30/2019 INTERVAL HISTORY: Patient with worsening encephalopathy. ABG showing respiratory decompensation with acute hypercapnic respiratory failure. Again discussed the possibility of intubation with family and this time they acquiesced. They continue to want everything done to try and keep him alive. Again, stressed the rather poor prognosis in general and the grim prognosis if he has a full arrest. They again reaffirmed that they want everything done. The patient was successfully intubated with the assistance of the ER physician. Post intubation, his ABG does actually show a little bit of improvement. His hypercapnia is significantly improved. His pH is actually slightly better, which is a first on this hospitalization. Lactic acid remains markedly elevated. He has also had increased pressor requirements. Was on Levophed last night, had to be started on vasopressin later. This morning still with increasing pressor requirements so Kj-Synephrine has been started as well. Discussed the case with Dr. Nelson with Nephrology and Dr. Mooney with Surgery. Dr. Nelson remains skeptical about the role of dialysis in this patient but is going to give it a try this afternoon. It may at least optimize his volume status some. Dr. Mooney has placed a vascular catheter towards that end. The possibility of exploratory laparoscopy was also discussed, but on last discussion, Anesthesiology was not willing to take the patient to the OR. The patient's original blood cultures are also now positive for gram-positive cocci. May end up being a contaminant, but will see. He is on antibiotics with Zyvox and Zosyn which should be adequate coverage for now. REVIEW OF SYSTEMS: Unable to obtain secondary to patient's mental status. LABS: WBC 24.8, hemoglobin 12.3, hematocrit 39.0, platelets 284,000. INR 1.57. Initial ABG with pH less than 6.8, pCO2 68, PO2 64 on 50% Ventimask. Repeat ABG after intubation with pH 7.03, pCO2 39, PO2 84 on 100% FiO2 via vent. Lactate remains greater than 20 on all ABGs. Sodium 152, potassium 5.7, BUN 47, creatinine 3.5, glucose 225, calcium 8.1, magnesium 2.9, bilirubin 0.57, AST 346, ALT 106, alkaline phosphatase 83. Alcohol 51. VITAL SIGNS: Last temperature 98.0 degrees, pulse 90, respirations 24, blood pressure 108/53 on 3 pressors, O2 saturation 100% on mechanical ventilation. IMAGING: Chest x-ray with NG tube that needs to be repositioned. Later x-ray showing repositioned NG tube. Chest x-ray also showing bibasilar pulmonary edema. PHYSICAL EXAMINATION: General: On initial evaluation, the patient was markedly encephalopathic. Occasionally would squeeze hands or move his head to command or question but not following any commands beyond that. Later intubated and sedated. When not actively stimulated, he would lay his head back as far as it would go and did not appear to be protecting his airway very well. Cardiac: Tachycardic but regular at the time of my exam. No murmurs noted. Pulmonary: A few scattered rhonchi but largely clear to auscultation. Abdomen: Mildly distended. Bowel sounds essentially absent. Nontender. Fairly soft. Extremities: Peripheral pulses decreased but present. Reasonable capillary refill. No clubbing or cyanosis. Trace edema bilaterally. Neurologic: Exam limited by patient's mental status but pupils equal, round, reactive to light. Withdraws to noxious stimuli in all extremities. No clear focal deficits. Psychiatric: Asleep but arousable prior to intubation. Would follow some commands. Essentially nonverbal but occasionally shake or nod head to questions. ASSESSMENT AND PLAN: 1. Septic shock, etiology uncertain but suspect mesenteric ischemia/necrotic intestine. On antibiotics with Zyvox and Zosyn for now. Maxed out on Levophed and vasopressin and started on phenylephrine with adequate MAPs currently. PH is a little bit better after intubation, but lactic acid remains markedly elevated. Overall prognosis likely grim, but will continue all available measures for now. 2. Acute kidney injury, severe metabolic acidosis. Patient with dialysis catheter in place. Dr. Nelson planning on arranging dialysis for later today. The patient's blood pressure may be a barrier to effective dialysis, however. We will see how that goes. The patient's kidney failure is worsening this morning with creatinine going from 2.9 to 3.5. Also with mild hyperkalemia, but hopefully that will improve with dialysis. 3. Acute hypoxic and hypercapnic respiratory failure. Oxygen was really not too bad initially but it did appear the patient began to fatigue and stop having adequate respiratory drive/movement. This led to intubation as above and a repeat ABG did show improved CO2 and adequate oxygenation. Recheck ABG this afternoon and see where we are. 4. Bacteremia. Patient with positive blood cultures. May end up being a contaminant, but will treat if it is real for now. Repeat blood cultures in the morning. On antibiotics as above. 5. Rhabdomyolysis. Remains on aggressive fluids with bicarbonate drip, which we will continue. 6. Hypothermia, resolved. Likely due to being in house with no heat overnight prior to admission. 7. Alcohol abuse. Patient with significant alcohol habit. Alcohol is almost out of his systems this morning. We will monitor for signs of withdrawal. The patient has been given thiamine. Monitor closely. CRITICAL CARE TIME: Patient is critically ill with high likelihood of mortality. Approximately 1 hour total critical care time spent immediately available to the patient, examining patient, reviewing labs and imaging, and making medical decisions.
[2019-11-30] MEDS ORDERED: TIGHT: 0.2 ML/HR FOR DIALYSIS MISC PRN (17:01)
[2019-11-30] MEDS ORDERED: HEPARIN IV PRN (17:01)
[2019-11-30] MEDS ORDERED: NS 2,000 ML MISC PRN (17:01)
--- NOTE | 2019-11-30 17:30 | GENERAL SURGERY CONSULTATION ---
DATE: 11/30/2019 REQUESTING PHYSICIAN: Dr. Nelson. REASON FOR CONSULTATION: Dialysis catheter placement. HISTORY OF PRESENT ILLNESS: This is a 64-year-old alcoholic who was found by his family on the floor of his residence yesterday unresponsive with numerous empty whiskey bottles. He initially was hypotensive and hypothermic and agitated. Upon arrival to the ER he was found to be profoundly acidemic with a very high lactic acidosis. He underwent some initial rewarming. Head CT showed nothing acute. Broad-spectrum antibiotics, sodium bicarb and vasopressors were begun. There was initial evaluation by Dr. Nelson intubation was recommended but not agreed to by the family according to reports. This morning he continues to be in critical condition. No improvement in his acidemia has been noted and the family now is agreeable to more aggressive measures such as intubation, mechanical ventilation, dialysis, etc. The patient again is obtunded and was in the process of being intubated on my initial evaluation. No history could be obtained from the patient. PAST MEDICAL HISTORY: According the family and chart review includes hypertension, type 2 diabetes, alcohol abuse, history of pancreatitis. PAST SURGICAL HISTORY: Unknown. FAMILY HISTORY: Unknown. SOCIAL HISTORY: Again, a heavy drinker. The rest of the social history is unknown. ALLERGIES: No known drug allergies. HOME MEDICATIONS: Reportedly amlodipine, glipizide, benazepril. REVIEW OF SYSTEMS: Unobtainable. PHYSICAL EXAMINATION: Vital Signs: Temperature 96.7 degrees, pulse 115, blood pressure 80s over 40s on 2 pressors, O2 saturation 95 to 100 percent. General: He is obtunded and unresponsive. HEENT: Normocephalic, atraumatic. I did not get a chance to look at his pupils. He is now intubated. CV: Tachycardic. Respiratory: Coarse bilateral breath sounds. GI: Soft, nondistended. No mass or fluid wave is appreciated. I did not note any caput medusa or dilated umbilical veins. Extremities: Cool but peripheral perfusion does still appear to be intact. He does have some slow capillary refill. LABORATORY: White blood cell count 24,000, hemoglobin 12, hematocrit 39, platelet count 284,000. INR 1.57, pH this morning is less than 6.8, essentially unmeasurable, pCO2 68, PaO2 64. Lactate greater than 20. Sodium 152, potassium 5.7, chloride 91, CO2 10, BUN 47, creatinine 3.5, glucose 225, calcium 8.1, magnesium 2.9, AST 346, ALT 106, alkaline phosphatase 83, CK 3737, serum alcohol levels 300 on admission and 51 this morning. Acetone level negative. The rest of his UDS is negative. IMAGING: A chest x-ray yesterday was negative. Chest x-ray this morning shows bibasilar pulmonary edema versus pneumonia. Head CT yesterday was negative. ASSESSMENT AND PLAN: A 64-year-old male who is profoundly ill with severe metabolic and lactic acidosis. Etiology is unknown, also in the setting of alcohol toxicity. There is respiratory failure, acute kidney injury and concern for ischemic bowel. Currently the plan is to continue supportive care with mechanical ventilation. We will place a vascular dialysis catheter in the right femoral vein and I have discussed with the family if there are some measurable laboratory and other physiologic signs of improvement, then we could attempt a laparotomy or at least a mini- laparotomy to assess for ischemic bowel. They understand that if he has diffuse gangrene of the bowel, then that would be nonsurvivable and he may not survive despite any intervention. They understand the risks and benefits of dialysis catheter placement including bleeding, injury to the vessels, catheter malfunction or infection and other imponderables. cc: Den Mooney MD
--- NOTE | 2019-11-30 18:20 | OPERATIVE NOTE ---
PROCEDURE DATE: 11/30/2019 PREOPERATIVE DIAGNOSES: 1. Left profound acidemia. 2. Multiorgan failure. POSTOPERATIVE DIAGNOSES: 1. Left profound acidemia. 2. Multiorgan failure. PROCEDURE: Insertion of central venous dialysis catheter. SURGEONS: Den Mooney MD [employer] CONSULTANT AND DESIGNER: Lynn Joya MS 3. ESTIMATED BLOOD LOSS: Scant. COMPLICATIONS: None apparent. FINDINGS: Dark red nonpulsatile blood obtained on the 1st needle stick. TECHNIQUE: He was kept supine in his ER stretcher. The right groin was prepped and draped in usual sterile fashion. On palpating the right femoral artery, we accessed the femoral vein just medial to it with the needle and syringe the wire passed through the needle easily the track was dilated. A Trialysis catheter was passed over the wire into the vein via the Seldinger technique. Each port laura back blood easily and was flushed with saline. Sterile caps were applied. The catheter was anchored to the skin with nylon suture and a sterile dressing was applied. There were no apparent complications. cc: Den Mooney MD
--- NOTE | 2019-11-30 19:50 | NEPHROLOGY PROGRESS NOTE ---
DATE: 11/30/2019 SUBJECTIVE: He remains obtunded and he is now intubated. Eyes are open and darting left and right. Does not respond. OBJECTIVE: Blood pressure 108/53, heart rate 90, respirations 24, temperature 98 degrees. Intake and output are not recorded well. On our calculations he has received at least 5 L of intake. Neurologic: As above. Skin is warm and dry. Conjunctivae are pink. Pupils are equal. Oropharynx is dry. Neck veins are not appreciated. PMI nonpalpable. Regular rate and rhythm. No murmurs, rubs, gallops. Lungs: Have equal excursion, equal breath sounds. Coarse but no crackles. Abdomen: Soft, scaphoid, nontender. Bowel sounds are not appreciated. Extremities: No edema, clubbing or cyanosis. IMPRESSION: Shock with lactate greater than 20, anion gap approaching 50, hyperkalemia, acute kidney injury. I have discussed the case today with Dr. Johnson and Dr. Mooney. We considered taking him to the operating room for diagnostic laparoscopy but he is really too ill to go to the operating room. He will be moved to the ICU where we will perform hemodialysis using a 3 bath and 4 hour treatment with no ultrafiltration. 37 bicarbonate. Plan to repeat treatment in the morning. Remains gravely ill. cc: Anshu Nelson MD
--- NOTE | 2019-12-01 00:19 | CONSULTATION ---
DATE OF CONSULTATION: 11/30/2019 CHIEF COMPLAINT: Unresponsive. HISTORY OF PRESENT ILLNESS: This is a 64-year-old male who was brought into the ER by EMS. Patient was found down unresponsive with apparently he had been drinking whiskey. During assessment, he is receiving AC. He is awake. Family at bedside. Chest x-ray revealed bibasilar pulmonary edema versus pneumonia plus/minus atelectasis. Head CT impression: No hemorrhage, no injury. PAST MEDICAL HISTORY: Hypertension, diabetes mellitus type 2 and alcohol abuse. FAMILY HISTORY: Father was murdered. Mother of cancer in 1978. SOCIAL HISTORY: He is a , alcoholic. PAST SURGICAL HISTORY: None. MEDICATIONS: Amlodipine 10 mg p.o. daily, glipizide ER 5 mg tablet p.o. once daily, [*]20 mg p.o. once daily. ALLERGIES: No known drug allergies. REVIEW OF SYSTEMS: Unable to obtain due to patient condition. PHYSICAL EXAMINATION: Vital Signs: Pulse rate 101, respiratory rate 31, blood pressure 121/69, O2 saturation 97. General: This is a 64-year-old male lying on the stretcher on mechanical ventilation. Family at bedside. HEENT: Atraumatic, normocephalic. PERRLA. Poor dentition. Mucous membranes dry. Cardiovascular: Irregularly irregular. Respiratory: Lung sounds clear bilaterally. Abdomen: Appeared soft, nontender, nondistended. Extremities: Lower extremities with faint pedal pulses. DIAGNOSTIC DATA: Mentioned in HPI. LABORATORY DATA: White blood cells 24.86. Red blood cells 3.79. Hemoglobin 12.3. Hematocrit 39.1. Platelet count 284. PT 19.1. INR 1.57. PH 7.21. PCO2 of 39. PO2 of 67. Bicarbonate 15.8. Oxyhemoglobin 93.1. Sodium 152. Potassium 5.7. Chloride 91. Carbon dioxide 10. BUN 47. Creatinine 3.5. Glucose 225. Calcium 8.1. AST 346. ALT 106. ProBNP 110. ASSESSMENT AND PLAN: 1. Respiratory failure. He is receiving ventilatory support. 2. Metabolic acidosis. Dr. Omar goetz. 3. Alcohol intoxication. Alcohol level at 300. He was given IV thiamine and we will initiate banana bags in a.m. 4. Septic shock. 5. Diabetes mellitus. We will continue to monitor with fingerstick blood glucose and treat accordingly with sliding scale insulin. 6. Hypotension. Levophed initiated. 7. Rhabdomyolysis. He is receiving IV hydration. 8. Hypothyroidism. He was given IV levothyroxine. 9. Hypothermia. Rectal temperature was 85. Rewarming with warming blanket. We will check with serial PT and INRs. TIME SPENT: [address] Pérez did management and [id number] evaluation. DILMA Aviles, did scribing only. Thank you for the courtesy of this consult. Dictated by DILMA Aviles for Smith Pérez MD cc: DILMA Aviles MD
[2019-12-01 00:30] LABS: URINE SOURCE CATH
[2019-12-01 00:37] LABS: BILIRUBIN URINE NEGATIVE (NEGATIVE); BLOOD URINE LARGE (NEGATIVE); COLOR YELLOW; GLUCOSE URINE 300 mg/dL (NEGATIVE); KETONE URINE 10 mg/dL (NEGATIVE); LEUKOCYTES URINE LARGE (NEGATIVE); NITRITE URINE NEGATIVE (NEGATIVE); PH URINE 5.5; PROTEIN URINE 100 mg/dL (NEGATIVE); SP GRAVITY URINE 1.018; TURBIDITY URINE TURBID (CLEAR); UR EPITHELIAL CELLS <10 /HPF (<10); URINE BACTERIA NEGATIVE /HPF; URINE RBC TNTC /HPF (<10); URINE WBC <10 /HPF (<10); UROBILINOGEN URINE NORMAL (NORMAL)
[2019-12-01] MEDS: HUMALOG SUBQ SCH ×6 (01:00→21:08)
[2019-12-01 01:07] LABS: URINE CASTS NONE SEEN; URINE CRYSTALS NONE SEEN; URINE SMALL ROUND CELLS NONE SEEN; URINE YEAST PRESENT
[2019-12-01] MEDS: FENTANYL 1,000 MICROGM in NS 80 ML IV SCH (01:08)
[2019-12-01] MEDS: NS IV SCH ×4 (02:30→08:10)
[2019-12-01] MEDS: FENTANYL IV SCH ×4 (02:30→08:10)
[2019-12-01] MEDS: SODIUM BICARBONATE 8.4% 150 MEQ in STERILE WATER INJ. 1,000 ML IV SCH (02:53)
[2019-12-01] MEDS: LEVOPHED 8 MG in D5 1/2 NS 250 ML IV SCH ×5 (04:23→22:36)
[2019-12-01 04:51] LABS: BASO# 0.02 X1000 (0.0-0.2); BASO% 0.1 % (0.0-0.8); HEMATOCRIT 38.3 % (42.0-52.0); HEMOGLOBIN 12.9 g/dL (14.0-18.0); IMM GRAN# 0.06 X1000 (0.0-0.04); IMM GRAN% 0.4 % (0.0-0.5); LYMPH# 1.26 X1000 (1.2-3.4); LYMPH% 7.7 % (20.5-51.1); MCH 31.9 PG (27-31); MCHC 33.7 g/dL (33-37); MCV 94.6 FL (81-99); MONO# 0.44 X1000 (0.11-0.59); MONO% 2.7 % (1.7-9.3); MPV 10.7 FL (7.4-10.4); NEUT# 14.63 X1000 (1.4-6.5); NEUT% 89.1 % (42.2-75.2); RBC 4.05 XMIL (4.7-6.1); RDW 13.2 % (11.5-14.5); WBC 16.41 X1000 (4.8-10.8)
[2019-12-01 04:52] LABS: PLT 91 X1000 (130-400)
[2019-12-01 04:53] LABS: INR 1.29; PROTIME 16.3 Seconds (11.0-16.0)
[2019-12-01] MEDS: ZOSYN 2.25 GM in NS 50 ML IV SCH ×3 (05:04→21:09)
[2019-12-01] MEDS: ZYVOX 600 MG/D5W 600 MG/300 ML IVPB IV SCH ×2 (05:04→16:23)
[2019-12-01 05:11] LABS: ALB/GLOB RATIO 1.6; ALBUMIN 2.8 g/dL (3.5-5.0); DIRECT BILIRUBIN 0.2 mg/dL (0.00-0.20); TOTAL BILIRUBIN 0.57 mg/dL (0.20-1.00); TOTAL PROTEIN 4.6 g/dL (6.3-8.3)
[2019-12-01 05:17] LABS: CREATININE 2.8 mg/dL (0.7-1.2); POTASSIUM 4.6 mmol/L (3.5-5.1)
[2019-12-01 05:19] LABS: ALLEN TEST YES; BE 4.8 mmoll (-3.0-3.0); BLOOD TYPE ARTERIAL; HCO3-(ACT) 28.7 mmoll (20.0-26.0); O2(CT) 17.4 mL/dL (15.0-23.0); O2HB 97.1 % (95.0-99.0); PCO2(98.6) 36 mmHg (35-45); PO2(98.6) 131 mmHg (60-100); SAMPLE BLOOD; SAO2 99.3 % (95.0-100.0); SRATE 22 BPM; THB 12.6 g/dL (11.5-17.4); TVOL 500 mL
[2019-12-01 05:19] LABS: CALCIUM 6.6 mg/dL (8.8-10.2)
[2019-12-01 05:22] LABS: MODALITY VENTILATOR
[2019-12-01] MEDS ORDERED: CALCIUM GLUCONATE 1 GM in NS 50 ML IV ONE (06:21)
[2019-12-01] MEDS ORDERED: NS 2,000 ML MISC PRN (06:56)
[2019-12-01] MEDS: CALCIUM GLUCONATE 2 GM in NS 100 ML IV ONE ×2 (07:00→08:15)
--- NOTE | 2019-12-01 07:24 | Diag Imaging Result Doc PS360 ---
EXAM: CHEST-1 VIEW INDICATION: SOB TECHNIQUE: One view COMPARISON: 11/30/2019 FINDINGS: Support tubes and lines are in stable positions. There has been slight improvement of the mild bibasilar opacity seen previously, especially on the left. No new consolidation is identified. Cardiac silhouette is stable. IMPRESSION: Interval slight improvement. Electronically signed by Aba Murdock 12/01/2019 7:21 AM
--- NOTE | 2019-12-01 07:57 | EKG Report ---
Test Performed on : 11/29/2019 3:45:33 PM Test Reason : AMS Blood Pressure : / mmHG Vent. Rate : 093 BPM Atrial Rate : 086 BPM P-R Int : 000 ms QRS Dur : 112 ms QT Int : 432 ms P-R-T Axes : 000 056 001 degrees QTc Int : 537 ms Atrial fibrillation. with premature ventricular or aberrantly conducted complexes. Prolonged QT Abnormal ECG When compared with ECG of 28-JUN-2013 15:31, Atrial fibrillation. has replaced Sinus rhythm. T wave inversion no longer evident in Lateral leads QT has lengthened Unconfirmed Result
[2019-12-01] MEDS: NS 1,000 ML IV SCH ×2 (08:01→21:09)
[2019-12-01] MEDS ORDERED: DIPRIVAN 1% 1,000 MG/100 ML BOTTLE IV SCH (08:30)
--- NOTE | 2019-12-01 11:10 | Diag Imaging Result Doc PS360 ---
CT THORAX/ABD/PELVIS W/O CON - 12/01/2019 INDICATION: septic shock with uncertain source COMPARISON: Previous chest x-rays FINDINGS: CHEST: There is an endotracheal tube and nasogastric tube in good position. Heart and great vessels are normal. No adenopathy. There is moderate airspace opacification of both lower lobes, likely mostly atelectasis, with some possible infiltrates and effusions. Remainder of the lung mcgowan are clear with no evidence for pulmonary edema. No significant COPD. Major airways are all clear. There are moderate degenerative changes of the spine. No acute or suspicious bony lesion. Abdomen pelvis: There is a right femoral vein central line in good position. No renal stones or urinary obstruction. There is probably fatty change of the liver. The pancreas is very atrophic. No free air or free fluid. There may be some inflammation around the colon. Knapp catheter in the urinary bladder. Nonspecific wall thickening of the urinary bladder. Prostate and rectum are normal. There are moderate degenerative changes of the spine. No acute or suspicious bony lesion. IMPRESSION: 1. Moderate indeterminate opacifications of both lower lobes, indicating any combination of atelectasis, infiltrate or effusion. 2. Possible colitis. 3. Nonspecific wall thickening of the urinary bladder. Correlate for possible cystitis. This exam was performed using automated exposure control, adjustment of mA or kV according to patient size, and/or use of iterative reconstruction technique Electronically signed by Anthony Sanders 12/01/2019 11:07 AM
[2019-12-01 12:42] LABS: HEPATITIS PROFILE ACUTE SEE COMMENTS
[2019-12-01] MEDS ORDERED: MORPHINE IV PRN (12:51)
--- NOTE | 2019-12-01 13:57 | PROVIDER PROGRESS NOTE ---
Progress Note Subjective: intubated, able to squeeze my hands on command. Unable to follow any other commands. His eyes are starting to the left and the right. Objective: temperature 100.6, pulse 84, respirations 22, blood pressure 112/69, 02 sat 95% On 80% FiO2 mechanical ventilation. General: chronically ill appearing white male lying in bed and no acute distress. HEENT: Normocephalic a traumatic. Pupils equal and reactive. Conjunctival edema noted. Conjunctiva pale. Trachea midline. OG tube to oral cavity on low intermittent suction with dark green outfit. Skin: scattered areas of erythema. NecK: supple, no JVD observed. Cardiovascular: S1S2, regular rate and rhythm. No murmurs or gallops noted. Respiratory: lungs equal with clear air entry. No crackles or rales noted. Abdomen: slightly firm, nondistended nontender. Bowel sounds hypoactive. : not inspected, Knapp in place with minimal urine output. Extremities: generalized edema to bilateral upper extremities with one plus pitting to his bilateral lower extremities. Neurological: able to follow one command. Eyes open upon verbal stimuli. Maxed on Fentanyl Labs: WBC 16.41, hemoglobin 12.9, hematocrit 38.3, platelet count 91, sodium 142, potassium 4.6, chloride 93, carbon dioxide 28, anion gap 21, BUN 30, creatinine 2.8, albumin 2.8, intake 4864, output 820. Impression: Acute kidney injury. Likely ischemic acute tubular necrosis related to sepsis. He will have SLED at bedside today. No changes. Blood pressure. Stable with levophed. Anemia. Stable. Volume. Hypervolemic on exam. 4L UF today. rg Electrolytes. Improved. Metabolic acidosis. Medication review. Zosyn started yesterday, platelets dropped.
--- NOTE | 2019-12-01 17:28 | PROVIDER PROGRESS NOTE ---
Progress Note Dr. Pérez Progress Note/Pulmonary and or critical care We appreciated progress of care, Complications, change in diagnosis, and instructions to patient. Subjective: We note the level of consciousness, bed (chair) position, family presence (if any), level of lethargy, feeling of symptoms, and changes from baseline condition/symptom. The patient is intubated and sedated with diprivan drip at 10 mcg/kg/min. He is lying in bed with no acute distress noted. He is also on Norepinephrine drip 30 mcg/min at this time. Staff is at the bedside and preparing to start SLED soon per Dr. Nelson. Family at the bedside. Objective: Vital Signs: We reviewed EMR current values for Pulse rate, Blood pressure, Pulse rate, respiratory rate and Pulse oximetry. Also noted other values and trends if present (e.g. I/O, CVP). 99.7 (persistent low grade fever in last 24 hours), WA 86, RR 22, BP 143/77 and SaO2 95% on AC 22, 80%, 500, 6. I/O +4044 ml Physical Examination: General: Intubated. Lying in bed with no acute distress noted. HEENT: Trachea midline. ETT and OGT in place. Mucus pink and moist. Chest: Mechanical ventilated. Symmetrical excursion. Clear to auscultation bilaterally. CVS: Regular rate and rhythm with S1 and S2 noted. Abdomen: Semi-firm. Nondistended. Hypoactive bowel sounds in all 4 quadrants. Extremities: BLE pitting edema 1+. No cyanosis. No clubbing. Neuro: Sedated. Open eyes to verbal stimuli. Unable to follow simple commands. Labs and Radiology: Reviewed available labs and radiology values available at time of EMR review. Laboratory Results 11/30/19 11/30/19 11/30/19 17:42 20:01 21:24 WBC RBC Hgb Hct MCV MCH MCHC RDW Std Deviation Plt Count MPV Immature Gran % (Auto) Neut % (Auto) Lymph % (Auto) [place] % (Auto) Eos % (Auto) Baso % (Auto) Immature Gran # (Auto) Neut # (Auto) Lymph # (Auto) [place] # (Auto) Eos # (Auto) Baso # (Auto) Segmented Neutrophils PT INR PTT (Actin FS) Specimen Type Sample Site pH pCO2 pO2 HCO3 Base Excess Oxyhemoglobin ABG O2 Sat (Calculated) ABG O2 Saturation ABG Carboxyhemoglobin ABG Methemoglobin Robert Test A-a O2 Difference Total Hemoglobin Lactate Blood Gas Modality Vent Mode Spontaneous Rate FiO2 % Tidal Volume PEEP Sodium Potassium Chloride Carbon Dioxide Anion Gap BUN Creatinine Estimated GFR/1.73 m2 BUN/Creatinine Ratio Glucose POC Glucose 363 H 306 H Calculated Osmolality Calcium Phosphorus Total Bilirubin Direct Bilirubin AST ALT Alkaline Phosphatase Total Protein Albumin Globulin Albumin/Globulin Ratio Urine Source Urine Color Urine Turbidity Urine pH Ur Specific Raymond Urine Protein Ur Glucose (Stick) Ur Ketones (Stick) Urine Blood Urine Nitrite Urine Bilirubin Urobilinogen Dipstick Urine Leukocytes Urine WBC (Auto) Urine RBC (Auto) U Epithel Cells (Auto) Urine Bacteria (Auto) Urine Crystals Small Round Cells Urine Casts Urine Yeast-like Cells Hepatitis Panel SEE COMMENTS 11/30/19 12/01/19 12/01/19 22:30 01:17 04:15 WBC RBC Hgb Hct MCV MCH MCHC RDW Std Deviation Plt Count MPV Immature Gran % (Auto) Neut % (Auto) Lymph % (Auto) [place] % (Auto) Eos % (Auto) Baso % (Auto) Immature Gran # (Auto) Neut # (Auto) Lymph # (Auto) [place] # (Auto) Eos # (Auto) Baso # (Auto) Segmented Neutrophils PT INR PTT (Actin FS) Specimen Type ARTERIAL Sample Site R RADIAL pH 7.50 H pCO2 36 pO2 131 H HCO3 28.7 H Base Excess 4.8 H Oxyhemoglobin 97.1 ABG O2 Sat (Calculated) 17.4 ABG O2 Saturation 99.3 ABG Carboxyhemoglobin 1.20 ABG Methemoglobin 1.0 Robert Test YES A-a O2 Difference 394.0 Total Hemoglobin 12.6 Lactate 4.30 H* Blood Gas Modality VENTILATOR Vent Mode A/C Spontaneous Rate 22 FiO2 % 80.0 Tidal Volume 500 PEEP 6.0 Sodium Potassium Chloride Carbon Dioxide Anion Gap BUN Creatinine Estimated GFR/1.73 m2 BUN/Creatinine Ratio Glucose POC Glucose 194 H Calculated Osmolality Calcium Phosphorus Total Bilirubin Direct Bilirubin AST ALT Alkaline Phosphatase Total Protein Albumin Globulin Albumin/Globulin Ratio Urine Source CATH Urine Color YELLOW Urine Turbidity TURBID Urine pH 5.5 Ur Specific Raymond 1.018 Urine Protein 100 A Ur Glucose (Stick) 300 A Ur Ketones (Stick) 10 A Urine Blood LARGE A Urine Nitrite NEGATIVE Urine Bilirubin NEGATIVE Urobilinogen Dipstick NORMAL Urine Leukocytes LARGE A Urine WBC (Auto) <10 Urine RBC (Auto) TNTC A U Epithel Cells (Auto) <10 Urine Bacteria (Auto) NEGATIVE Urine Crystals NONE SEEN Small Round Cells NONE SEEN Urine Casts NONE SEEN Urine Yeast-like Cells PRESENT Hepatitis Panel 12/01/19 12/01/19 12/01/19 04:15 04:17 04:17 WBC RBC Hgb Hct MCV MCH MCHC RDW Std Deviation Plt Count MPV Immature Gran % (Auto) Neut % (Auto) Lymph % (Auto) [place] % (Auto) Eos % (Auto) Baso % (Auto) Immature Gran # (Auto) Neut # (Auto) Lymph # (Auto) [place] # (Auto) Eos # (Auto) Baso # (Auto) Segmented Neutrophils PT 16.3 H INR 1.29 PTT (Actin FS) Specimen Type Sample Site pH pCO2 pO2 HCO3 Base Excess Oxyhemoglobin ABG O2 Sat (Calculated) ABG O2 Saturation ABG Carboxyhemoglobin ABG Methemoglobin Robert Test A-a O2 Difference Total Hemoglobin Lactate Blood Gas Modality Vent Mode Spontaneous Rate FiO2 % Tidal Volume PEEP Sodium Potassium Chloride Carbon Dioxide Anion Gap BUN Creatinine Estimated GFR/1.73 m2 BUN/Creatinine Ratio Glucose POC Glucose Calculated Osmolality Calcium Phosphorus 4.4 Total Bilirubin 0.57 Direct Bilirubin 0.20 AST 585 H ALT 181 H Alkaline Phosphatase 64 Total Protein 4.6 L Albumin 2.8 L Globulin 1.8 Albumin/Globulin Ratio 1.6 Urine Source Urine Color Urine Turbidity Urine pH Ur Specific Raymond Urine Protein Ur Glucose (Stick) Ur Ketones (Stick) Urine Blood Urine Nitrite Urine Bilirubin Urobilinogen Dipstick Urine Leukocytes Urine WBC (Auto) Urine RBC (Auto) U Epithel Cells (Auto) Urine Bacteria (Auto) Urine Crystals Small Round Cells Urine Casts Urine Yeast-like Cells Hepatitis Panel 12/01/19 12/01/19 12/01/19 04:17 04:17 04:17 WBC 16.41 H RBC 4.05 L Hgb 12.9 L Hct 38.3 L MCV 94.6 MCH 31.9 H MCHC 33.7 RDW Std Deviation 13.2 Plt Count 91 L D MPV 10.7 H Immature Gran % (Auto) 0.4 Neut % (Auto) 89.1 H Lymph % (Auto) 7.7 L [place] % (Auto) 2.7 Eos % (Auto) 0.0 Baso % (Auto) 0.1 Immature Gran # (Auto) 0.06 H Neut # (Auto) 14.63 H Lymph # (Auto) 1.26 [place] # (Auto) 0.44 Eos # (Auto) 0.00 Baso # (Auto) 0.02 Segmented Neutrophils Not Reportable PT INR PTT (Actin FS) 36.1 Specimen Type Sample Site pH pCO2 pO2 HCO3 Base Excess Oxyhemoglobin ABG O2 Sat (Calculated) ABG O2 Saturation ABG Carboxyhemoglobin ABG Methemoglobin Robert Test A-a O2 Difference Total Hemoglobin Lactate Blood Gas Modality Vent Mode Spontaneous Rate FiO2 % Tidal Volume PEEP Sodium 142 Potassium 4.6 D Chloride 93 L Carbon Dioxide 28 Anion Gap 21 BUN 30 H Creatinine 2.8 H Estimated GFR/1.73 m2 23 BUN/Creatinine Ratio 11 Glucose 217 H POC Glucose Calculated Osmolality 296 Calcium 6.6 L* D Phosphorus Total Bilirubin Direct Bilirubin AST ALT Alkaline Phosphatase Total Protein Albumin Globulin Albumin/Globulin Ratio Urine Source Urine Color Urine Turbidity Urine pH Ur Specific Raymond Urine Protein Ur Glucose (Stick) Ur Ketones (Stick) Urine Blood Urine Nitrite Urine Bilirubin Urobilinogen Dipstick Urine Leukocytes Urine WBC (Auto) Urine RBC (Auto) U Epithel Cells (Auto) Urine Bacteria (Auto) Urine Crystals Small Round Cells Urine Casts Urine Yeast-like Cells Hepatitis Panel 12/01/19 12/01/19 12/01/19 05:42 09:58 16:18 WBC RBC Hgb Hct MCV MCH MCHC RDW Std Deviation Plt Count MPV Immature Gran % (Auto) Neut % (Auto) Lymph % (Auto) [place] % (Auto) Eos % (Auto) Baso % (Auto) Immature Gran # (Auto) Neut # (Auto) Lymph # (Auto) [place] # (Auto) Eos # (Auto) Baso # (Auto) Segmented Neutrophils PT INR PTT (Actin FS) Specimen Type Sample Site pH pCO2 pO2 HCO3 Base Excess Oxyhemoglobin ABG O2 Sat (Calculated) ABG O2 Saturation ABG Carboxyhemoglobin ABG Methemoglobin Robert Test A-a O2 Difference Total Hemoglobin Lactate Blood Gas Modality Vent Mode Spontaneous Rate FiO2 % Tidal Volume PEEP Sodium Potassium Chloride Carbon Dioxide Anion Gap BUN Creatinine Estimated GFR/1.73 m2 BUN/Creatinine Ratio Glucose POC Glucose 197 H 319 H D 200 H Calculated Osmolality Calcium Phosphorus Total Bilirubin Direct Bilirubin AST ALT Alkaline Phosphatase Total Protein Albumin Globulin Albumin/Globulin Ratio Urine Source Urine Color Urine Turbidity Urine pH Ur Specific Raymond Urine Protein Ur Glucose (Stick) Ur Ketones (Stick) Urine Blood Urine Nitrite Urine Bilirubin Urobilinogen Dipstick Urine Leukocytes Urine WBC (Auto) Urine RBC (Auto) U Epithel Cells (Auto) Urine Bacteria (Auto) Urine Crystals Small Round Cells Urine Casts Urine Yeast-like Cells Hepatitis Panel Assessment: Acute respiratory failure. Intubated on 11/30/19. Bibasilar pulmonary edema vs. pneumonia +/- atelectasis. CT thorax/abd/pelvis w/o contrast revealed moderate indetermine opacifications of both lower lobes, indicating any combination of atelectasis, infiltrate or effusion. Septic shock. Profound high anion gap and metabolic acidosis. Improving. Alcohol intoxication. Rhabdomyolysis. Acute renal insufficiency. Worsening. On SLED per Dr. Nelson. Electrolyte abnormality including hypernatremia, hyperkalemia, hypochloremia, hypocalcemia and hypermagnesemia. Prognosis is guarded. Plan: Continue current treatment and supportive care per admitting and other teams on the case. Broad spectrum antibiotics including Linezolid and Zosyn. Ventilator settings checked and titrated to Patients needs per clinical protocols with closely monitoring. Sedation (discontinue diprivan drip; start IV Ativan 2mg Q2h prn and IV morphine 4mg Q3h prn) titrated to the patients needs per clinical protocols with closely monitoring. Pressors (Norepinephrine) titrated to the patients needs per clinical protocols with closely monitoring. Discuss patients condition and care plan with family at the bedside and all questions have been answered. Input was appreciated from Admitting MD and other teams on the case. Evaluation time in minutes: 35 minutes.
[2019-12-01] MEDS: MORPHINE IV PRN (17:49)
--- NOTE | 2019-12-01 19:04 | PROGRESS NOTE ---
DATE: 12/01/2019 INTERVAL HISTORY: Patient is actually showing some improvement this morning. Remains intubated and sedated, but will occasionally arouse enough to squeeze your hand a little bit. Pressor requirements significantly decreased. Off of Kj-Synephrine entirely. Almost off of vasopressin. Still on max dose Levophed. ABG also with significant improvement. PH markedly improved. Lactic acid down. He did have a low-grade temp this morning up to 100.6. Obviously, he is no longer hypothermic. REVIEW OF SYSTEMS: Unable to obtain secondary to patient's mental status. LABS: WBC 16.4, hemoglobin 12.9, hematocrit 38.3, platelets 91,000. ABG with pH 7.5, pCO2 36, PO2 131, O2 saturation 99% on ventilator with 80% FiO2. Sodium 142, potassium 4.6, bicarb 28, lactate 4.3, improved from 14.5, BUN 30, creatinine 2.8, glucose 194 to 319, calcium 6.6, bilirubin 0.57, AST 585, ALT 181, alkaline phosphatase 64. Hepatitis panel negative. IMAGING: CT chest, abdomen, pelvis with small bilateral pleural effusions with possible infiltrate, possible colitis, and possible cystitis. VITAL SIGNS: T-max 100.6 degrees, pulse 94, respirations 22, blood pressure 116/59, O2 saturation 95% on ventilator. PHYSICAL EXAMINATION: General: No acute distress, ill appearing, intubated and sedated on the ventilator. HEENT: Unkempt hair. Moist mucous membranes. ET tube in place. Cardiovascular: Regular rate and rhythm. Pulmonary: A few scattered rhonchi but good air entry. Abdomen: Soft. No clear tenderness. Bowel sounds markedly decreased. Extremities: Peripheral pulses intact, although a little decreased. Trace edema bilaterally. Neurologic: Limited by sedation, but patient did a couple times squeeze my hands with both upper extremities. Occasionally opens eyes and tracks a little bit of voice. No clear focal deficits. Psychiatric: Sedated. ASSESSMENT AND PLAN: 1. Severe septic shock, profound lactic acidosis. Etiology remains somewhat uncertain. At one point was almost maxed out on 3 pressors. Now down to maxed out Levophed and a small amount of vasopressin, which I suspect he will be weaned off of shortly. Lactic acid down from 32 to 4. PH markedly improved. Now slightly alkalotic. We will go and take him off the bicarb drip and continue a little bit of normal saline. Given patient's improvement, we obtained a CT chest, abdomen, pelvis to try to clarify what his underlying problem was. It was not as helpful as we had hoped. He does appear to have bilateral small pleural effusions and likely mild pneumonia in the bases, but difficult to attribute his critical illness to that. Also some inflammatory stranding around the colon, so ischemic colitis is a strong possibility, although he has not been noted to pass any blood per rectum. Regardless, we will continue Zyvox and Zosyn for now. Initial blood cultures growing coagulase-negative staph which is likely a contaminant. Repeat blood cultures no growth to date. Urine culture pending. Influenza negative. We will wean pressors as tolerated. 2. Acute kidney injury, likely acute tubular necrosis related to critical illness. Nephrology on board and planning further dialysis today. Continue to monitor. 3. Acute hypoxic and hypercapnic respiratory failure. Oxygen only mildly low, but had marked CO2 retention after he began to fatigue. Required intubation. CO2 now markedly improved status post intubation. Oxygenation adequate. Continue to wean O2 as tolerated. 4. Likely pneumonia. Appears to have relatively mild pneumonia in both bases on CT. On antibiotics as above. 5. Likely ischemic colitis. The diagnosis is far from certain but it would explain much about his clinical presentation and he did appear to have inflammatory stranding around the bowels on CT. Discussed with Surgery. They may consider a diagnostic laparoscopy if he continues to stabilize. 6. Possible bacteremia. Patient with positive blood culture initially but was only 1 of 2 and grew out coagulase-negative staph, so likely another contaminant. Repeat blood cultures no growth to date. Continue to monitor. 7. Rhabdomyolysis. Continuing hydration and monitor. 8. Hypothermia, now resolved. Patient actually with low-grade fever overnight. 9. Alcohol abuse. Patient with significant alcohol habit. Monitor for signs of withdrawal. None so far. 10. Thrombocytopenia. The patient has not been on heparin or Lovenox. His Zyvox could contribute to bone marrow suppression, but it was an awful quick drop for that. INR is not elevated and is actually improved from previous, so hemolysis seems unlikely. We will monitor for now and consider further workup if it worsens more. 11. Hypocalcemia. Will further replete and monitor. 12. Diabetes. Pretty significantly elevated over the last day. Will increase sliding scale slightly and monitor. If it remains elevated, may consider low-dose basal insulin. CRITICAL CARE TIME: 65 minutes spent immediately available to the patient, examining the patient, reviewing labs and imaging, and making medical decisions.
--- NOTE | 2019-12-01 19:09 | GENERAL SURGERY PROGRESS NOTE ---
DATE: 12/01/2019 SUBJECTIVE: The patient has shown some improvement overnight. He is now arousable and responsive to voice. He has intermittently squeeze hands to command for other practitioners. He has been weaned down from 3 pressors to 1 and his acidemia has significantly improved. OBJECTIVE: Temperature 100 degrees, pulse [*] 22, blood pressure 104/51, O2 saturation 96%. General: Arousable, not following commands for this practitioner but he does open his eyes to voice. CV: Tachycardic. Respiratory: Coarse bilateral breath sounds decreased in the bases. He remains on the ventilator. Gastrointestinal: Soft, no tenderness appreciated. LABORATORY: White cell count 16,000, hemoglobin 12.9, hematocrit 38, platelet count 91,000. INR 1.29, pH 7.5, pCO2 36, PaO2 131, bicarb 28.7, base excess 4.8, lactate 4.3, sodium 142, potassium 4.6, chloride 93, CO2 of 28, BUN 30, creatinine 2.8, glucose 217, AST 585, ALT 181, alkaline phosphatase 64, total bilirubin 0.57. IMAGING: A CT of the abdomen and pelvis was performed this morning showing moderate indeterminate opacifications of both lower lobes indicating atelectasis, infiltrate or effusions. There is nonspecific wall thickening of the urinary bladder. There is possible inflammation around the colon. There is no free air or free fluid. The pancreas is very atrophic. There is probable fatty change of the liver. ASSESSMENT AND PLAN: A 64-year-old male with multiorgan failure presented with profound acidemia, acute alcohol toxicity, encephalopathy, acute kidney injury and extreme lactic acidosis. Again his physiologic status has improved. I had a very aquilino discussion with his family including his daughter who is making medical decisions for him. I have recommended diagnostic laparoscopy to rule out bowel ischemia to be done this afternoon. I discussed with her that he has improved enough that we could likely safely put him to sleep, but he may decline again if this is underlying issue and not addressed in the operating room. She refuses to consent to anesthesia in operative exploration. I discussed with her that this could be nonsurvivable if not treated and the best way to diagnose and treat is with exploratory surgery. She again expressed understanding but did not want to give permission at this time. At this point, we will continue following along to see if there are any changes both in him and in his family's wishes. cc: Den Mooney MD
[2019-12-02] MEDS: LEVOPHED 8 MG in D5 1/2 NS 250 ML IV SCH ×3 (03:08→19:54)
[2019-12-02 04:38] LABS: ALLEN TEST YES; BE -3.6 mmoll (-3.0-3.0); BLOOD TYPE ARTERIAL; HCO3-(ACT) 21.8 mmoll (20.0-26.0); METHB 1.1 % (0.0-1.5); PCO2(98.6) 36 mmHg (35-45); PO2(98.6) 64 mmHg (60-100); SAMPLE BLOOD; SAO2 94.4 % (95.0-100.0); SRATE 22 BPM; THB 21.7 g/dL (11.5-17.4); TVOL 500 mL; pH(98.6) 7.37 (7.35-7.45)
[2019-12-02 04:41] LABS: MODALITY VENTILATOR
[2019-12-02] MEDS: ZOSYN 2.25 GM in NS 50 ML IV SCH ×3 (05:19→20:09)
[2019-12-02] MEDS: ZYVOX 600 MG/D5W 600 MG/300 ML IVPB IV SCH ×2 (05:19→17:09)
[2019-12-02] MEDS: MORPHINE IV PRN ×2 (05:36→10:31)
[2019-12-02] MEDS: HUMALOG SUBQ SCH ×4 (06:19→21:20)
[2019-12-02] MEDS ORDERED: NS 2,000 ML MISC PRN (06:37)
--- NOTE | 2019-12-02 06:49 | Diag Imaging Result Doc PS360 ---
CHEST-1 VIEW - 12/02/2019 INDICATION: SOB COMPARISON: 12/01/2019 FINDINGS: Support tubes are stable and in good position. There has been significant decrease in the infiltrate throughout the right lung. Stable patchy infiltrates in the lung bases. Heart size remains top normal. No pneumothorax or significant pleural effusion. IMPRESSION: Significant improvement in the infiltrates throughout the right lung. Electronically signed by Anthony Sanders 12/02/2019 6:47 AM
[2019-12-02 06:53] LABS: BASO# 0.01 X1000 (0.0-0.2); BASO% 0.1 % (0.0-0.8); EOS# 0.02 X1000 (0.0-0.7); EOS% 0.1 % (0.0-10.0); HEMATOCRIT 34.3 % (42.0-52.0); HEMOGLOBIN 11.4 g/dL (14.0-18.0); IMM GRAN# 0.08 X1000 (0.0-0.04); IMM GRAN% 0.5 % (0.0-0.5); LYMPH# 0.63 X1000 (1.2-3.4); MCH 32.4 PG (27-31); MCHC 33.2 g/dL (33-37); MCV 97.4 FL (81-99); MONO# 0.54 X1000 (0.11-0.59); MONO% 3.5 % (1.7-9.3); MPV 12.3 FL (7.4-10.4); NEUT# 14.33 X1000 (1.4-6.5); NEUT% 91.8 % (42.2-75.2); PLT 50 X1000 (130-400); RBC 3.52 XMIL (4.7-6.1); RDW 13.4 % (11.5-14.5); WBC 15.61 X1000 (4.8-10.8)
[2019-12-02 07:44] LABS: ALBUMIN 2.5 g/dL (3.5-5.0); DIRECT BILIRUBIN 0.1 mg/dL (0.00-0.20); PHOSPHORUS 3.6 mg/dL (2.7-4.5); TOTAL BILIRUBIN 0.49 mg/dL (0.20-1.00); TOTAL PROTEIN 4.9 g/dL (6.3-8.3)
[2019-12-02 07:46] LABS: CREATININE 3.4 mg/dL (0.7-1.2); POTASSIUM 4.8 mmol/L (3.5-5.1)
[2019-12-02 08:26] LABS: CALCIUM 6.9 mg/dL (8.8-10.2)
[2019-12-02] MEDS ORDERED: CALCIUM GLUCONATE 2 GM in NS 100 ML IV ONE (08:30)
[2019-12-02] MEDS: NS 1,000 ML IV SCH (09:51)
[2019-12-02] MEDS: ATIVAN IV PRN ×2 (10:26→20:09)
--- NOTE | 2019-12-02 12:37 | PROVIDER PROGRESS NOTE ---
Progress Note Subjective: intubated, but follows commands, nods his head to yes and no questions. Denies any complaints. Family updated in waiting room. All questions were answered. Objective: temperature 100.0, pulse 90, respirations 22, blood pressure 106/66, 02 sat 96% on 50% FiO2 mechanical ventilation. General: chronically ill appearing white male lying in bed and no acute distress. HEENT: Normocephalic a traumatic. Pupils equal and reactive. Conjunctival edema noted. Conjunctiva pale. Trachea midline. OG tube to oral cavity on low intermittent suction with dark green output. Skin: scattered areas of erythema. NecK: supple, no JVD observed. Cardiovascular: S1S2, regular rate and rhythm. No murmurs or gallops noted. Respiratory: coarse lungs equal with air entry. No crackles or rales noted. Abdomen: slightly firm, nondistended nontender. Bowel sounds hypoactive. : not inspected, Knapp in place with minimal urine output. Extremities: generalized edema to bilateral upper extremities with one plus pitting to his bilateral lower extremities. Neurological: able to follow commands. Labs: WBC 15.61, hemoglobin 11.4, hematocrit 34.3, count to 50, sodium 137, potassium 4.8, chloride 98, carbon dioxide 21, BUN 28, creatinine 3.4, intake 460, output 2490. Impression: Acute kidney injury. Likely ischemic acute tubular necrosis related to sepsis. He had a 2L ultrafiltration yesterday and will have SLED at bedside again today with a goal of 2-4L as tolerated. Remains to have minimal urine output. Blood pressure. Stable with levophed. Anemia. Stable. Thrombocytopenia. On zosyn and zyvox. Volume. Euvolemic on exam. Electrolytes. Improved. Metabolic acidosis. Likely related to DHARA. Medication review. Zosyn and zyvox could be affecting his platelet count.
[2019-12-02] MEDS: LANTUS INSULIN SUBQ SCH (14:34)
--- NOTE | 2019-12-02 15:25 | PROVIDER PROGRESS NOTE ---
Progress Note Dr. Pérez Progress Note/Pulmonary and or critical care Subjective: The patient is intubated. He is awake, calm and cooperative. He follows simple commands. He denies any pain at this time. No family at the bedside. Norepinephrine drip at 18 mcg/min. FiO2 has been decreased from 80% yesterday morning to 50% this morning. Patient tolerates well. SLED will start soon per staff at the bedside. Input is appreciated from Dr. Johnson and other teams on the case. Objective: Vital Signs: 100.0 (persistent low grade fever in last 24 hours), [place] 94, RR 22, BP 129/81 and SaO2 95% on AC 22, 50%, 500, 5. I/O +1770 ml Physical Examination: General: Intubated. Lying in bed with no acute distress noted. HEENT: Trachea midline. ETT and OGT in place. Mucus pink and moist. Chest: Mechanical ventilated. Symmetrical excursion. Coarse breathing sounds on bilateral upper lung zones. CVS: Regular rate and rhythm with S1 and S2 noted. Abdomen: Semi-firm. Nondistended. Hypoactive bowel sounds in all 4 quadrants. Extremities: BLE and BUE trace edema. No cyanosis. No clubbing. Neuro: Awake, calm and cooperative. Follow simple commands. Labs and Radiology: Laboratory Results 12/01/19 12/01/19 12/02/19 16:18 20:52 04:28 WBC RBC Hgb Hct MCV MCH MCHC RDW Std Deviation Plt Count MPV Immature Gran % (Auto) Neut % (Auto) Lymph % (Auto) Stark % (Auto) Eos % (Auto) Baso % (Auto) Immature Gran # (Auto) Neut # (Auto) Lymph # (Auto) Stark # (Auto) Eos # (Auto) Baso # (Auto) PTT (Actin FS) Specimen Type ARTERIAL Sample Site R RADIAL pH 7.37 pCO2 36 pO2 64 HCO3 21.8 Base Excess -3.6 L Oxyhemoglobin 92.0 L ABG O2 Sat (Calculated) 28.0 H ABG O2 Saturation 94.4 L ABG Carboxyhemoglobin 1.50 ABG Methemoglobin 1.1 Robert Test YES A-a O2 Difference 248.0 Total Hemoglobin 21.7 H Lactate 2.20 Blood Gas Modality VENTILATOR Vent Mode A/C Spontaneous Rate 22 FiO2 % 50.0 Tidal Volume 500 PEEP 5.0 Sodium Potassium Chloride Carbon Dioxide Anion Gap BUN Creatinine Estimated GFR/1.73 m2 BUN/Creatinine Ratio Glucose POC Glucose 200 H 230 H Estimat Average Glucose Hemoglobin A1c Calculated Osmolality Calcium Phosphorus Total Bilirubin Direct Bilirubin AST ALT Alkaline Phosphatase Total Protein Albumin Globulin Albumin/Globulin Ratio 12/02/19 12/02/19 12/02/19 05:30 05:30 05:30 WBC 15.61 H RBC 3.52 L Hgb 11.4 L Hct 34.3 L MCV 97.4 MCH 32.4 H MCHC 33.2 RDW Std Deviation 13.4 Plt Count 50 L D MPV 12.3 H Immature Gran % (Auto) 0.5 Neut % (Auto) 91.8 H Lymph % (Auto) 4.0 L Stark % (Auto) 3.5 Eos % (Auto) 0.1 Baso % (Auto) 0.1 Immature Gran # (Auto) 0.08 H Neut # (Auto) 14.33 H Lymph # (Auto) 0.63 L Stark # (Auto) 0.54 Eos # (Auto) 0.02 Baso # (Auto) 0.01 PTT (Actin FS) Specimen Type Sample Site pH pCO2 pO2 HCO3 Base Excess Oxyhemoglobin ABG O2 Sat (Calculated) ABG O2 Saturation ABG Carboxyhemoglobin ABG Methemoglobin Robert Test A-a O2 Difference Total Hemoglobin Lactate Blood Gas Modality Vent Mode Spontaneous Rate FiO2 % Tidal Volume PEEP Sodium 137 Potassium 4.8 Chloride 98 Carbon Dioxide 21 L Anion Gap 18 BUN 28 H Creatinine 3.4 H Estimated GFR/1.73 m2 18 BUN/Creatinine Ratio 8 Glucose 272 H POC Glucose Estimat Average Glucose Hemoglobin A1c Calculated Osmolality 289 Calcium 6.9 L* Phosphorus 3.6 Total Bilirubin 0.49 Direct Bilirubin 0.10 AST 461 H ALT 159 H Alkaline Phosphatase 70 Total Protein 4.9 L Albumin 2.5 L Globulin 2.4 Albumin/Globulin Ratio 1.0 12/02/19 12/02/19 12/02/19 05:30 05:58 08:40 WBC RBC Hgb Hct MCV MCH MCHC RDW Std Deviation Plt Count MPV Immature Gran % (Auto) Neut % (Auto) Lymph % (Auto) Stark % (Auto) Eos % (Auto) Baso % (Auto) Immature Gran # (Auto) Neut # (Auto) Lymph # (Auto) Stark # (Auto) Eos # (Auto) Baso # (Auto) PTT (Actin FS) 35.7 Specimen Type Sample Site pH pCO2 pO2 HCO3 Base Excess Oxyhemoglobin ABG O2 Sat (Calculated) ABG O2 Saturation ABG Carboxyhemoglobin ABG Methemoglobin Robert Test A-a O2 Difference Total Hemoglobin Lactate Blood Gas Modality Vent Mode Spontaneous Rate FiO2 % Tidal Volume PEEP Sodium Potassium Chloride Carbon Dioxide Anion Gap BUN Creatinine Estimated GFR/1.73 m2 BUN/Creatinine Ratio Glucose POC Glucose 241 H Estimat Average Glucose 154 Hemoglobin A1c 7.0 H Calculated Osmolality Calcium Phosphorus Total Bilirubin Direct Bilirubin AST ALT Alkaline Phosphatase Total Protein Albumin Globulin Albumin/Globulin Ratio Assessment: Acute respiratory failure. Intubated on 11/30/19. Bibasilar pulmonary edema vs. pneumonia +/- atelectasis. CT thorax/abd/pelvis w/o contrast on 12/01/19 revealed moderate indetermine opacifications of both lower lobes, indicating any combination of atelectasis, infiltrate or effusion. CXR today shows significant improvement in the infiltrates throughout the right lung. Septic shock. Anion gap metabolic acidosis and metabolic acidosis. Improving. Alcohol intoxication. Acute renal insufficiency with electrolyte abnormality. On SLED per Dr. Nelson. Thrombocytopenia. Prognosis is guarded. Plan: Continue current treatment and supportive care per admitting and other teams on the case. Broad spectrum antibiotics including Linezolid and Zosyn. Ventilator settings checked and titrated to Patients needs per clinical protocols with closely monitoring. Sedation (discontinue diprivan drip; start IV Ativan 2mg Q2h prn and IV morphine 4mg Q3h prn) titrated to the patients needs per clinical protocols with closely monitoring. Pressors (Norepinephrine) titrated to the patients needs per clinical protocols with closely monitoring. Evaluation time in minutes: 34 minutes.
--- NOTE | 2019-12-02 18:46 | PROGRESS NOTE ---
DATE: 12/02/2019 INTERVAL HISTORY: The patient remains intubated and sedated, although he does wake up some. Pressor requirements have continued to improve. At one point, he was maxed on Levophed, vasopressin, almost maxed on Kj-Synephrine. Now he is down to Levophed and not quite at maximum. Still some frequent mildly elevated temperatures but no aquilino fever since yesterday morning. Cultures remain negative aside from coag-negative staph on 1 of 2 of the 1st blood cultures, which is likely a contaminant. REVIEW OF SYSTEMS: Unable to obtain secondary to patient mental status. LABS: WBC 15.6, hemoglobin 11.4, hematocrit 34.3, platelets 50,000. ABG with pH 7.37, pCO2 36, PO2 64 on 50% FiO2 via vent. Lactate 2.2. Sodium 137, potassium 4.8, bicarb 21, BUN 28, creatinine 3.4, glucose 217 to 272, hemoglobin A1c 7.0, calcium 6.9, phosphorus 3.6, bilirubin 0.49, AST 461, ALT 159, alkaline phosphatase 70. VITALS: T-max 100 degrees, pulse 88, respirations 22, blood pressure is 113/75. O2 saturation 97% on ventilator. PHYSICAL EXAMINATION: General: No acute distress, intubated and sedated. Vitals: As above. HEENT: Normocephalic, atraumatic. ET tube in place. Cardiovascular: Regular rate and rhythm. No murmurs noted. Pulmonary: A few scattered rhonchi but largely clear to auscultation. Abdomen: Soft, nontender, nondistended. Bowel sounds significantly decreased but present. Extremities: Peripheral pulses intact. Trace edema bilaterally. Neurologic: Exam limited by sedation. Patient will arouse enough to open eyes, tracks fairly well to voice. Will occasionally squeeze hands on command. Psychiatric: Sedated. ASSESSMENT AND PLAN: 1. Severe septic shock, profound lactic acidosis. Etiology remains not entirely certain. CT suggesting likely bibasilar pneumonia, although that is not a great explanation for how severely ill he was. Intestinal ischemia remains a possibility. He did some of have some inflammatory stranding around his intestines on the CT. Regardless, he seems to be improving. Remains on Levophed but at reduced dose and with room to wean. At one point, he was on 3 pressors so that is a significant improvement. Lactic acid was up to 30 at one point and is now down to essentially normal. The pH normalized. Continue empiric antibiotics with Zyvox and Zosyn for now and monitor closely. 2. Acute kidney injury, likely acute tubular necrosis, related to critical illness. Nephrology on board and have been doing daily SLED dialysis so far. Continue to monitor. No sign of renal recovery yet. 3. Acute hypoxic and hypercapnic respiratory failure. Oxygen remains mildly low, but marked CO2 retention prior to intubation that has now resolved. Continue to wean O2 as tolerated. Suspect if we get him off pressors, he will be able to be extubated. 4. Likely pneumonia on antibiotics as above monitor. 5. Possible ischemic colitis. Surgery following. We will see what recommendations they have. 6. Rhabdomyolysis. Continue hydration. 7. Hypothermia, resolved. 8. Alcohol abuse. Patient with significant alcohol history but no signs of withdrawal so far. 9. Thrombocytopenia. Patient has not been on heparin or Lovenox. Zyvox could cause bone marrow suppression, but should be causing a rapid drop like we have seen here. No signs or symptoms of bleeding thus far. INR yesterday was normal. Will see what it is in the morning, but if it is any worse, then we will likely have to get Hematology to see him. 10. Hypocalcemia. We will continue repleting and monitor. 11. Diabetes, controlled, still not ideal. We will add some low-dose basal insulin and monitor.
--- NOTE | 2019-12-02 21:40 | GENERAL SURGERY PROGRESS NOTE ---
DATE: 12/02/2019 SUBJECTIVE: There have been no acute events overnight. The patient is now much more alert. He does answer questions by shaking his head yes or no. He currently is denying any pain, especially in the abdomen. OBJECTIVE: Vital Signs: He is afebrile, pulse 91, respirations 22, blood pressure 118/73, O2 saturation 96%. He is down to 1 vasopressor and it is also decreasing today. General: He is awake and alert. Again, he does shake his head yes or no to questions. He does squeeze my hand and wiggle his toes. However, he does not follow all commands and is quite weak and deconditioned. He cannot lift his head or lift his arms and legs. GI: Soft, nontender, nondistended. CV: Regular rate and rhythm. LABORATORY: White cell count 15, hemoglobin 11, hematocrit 34, platelet count 50,000, pH is now normal. Lactate is now normal, base deficit -3. Electrolytes reviewed and notable for BUN 28, creatinine 3.4. IMAGING: Chest x-ray this morning shows a significant improvement and inflow and infiltrate throughout the right lung. ASSESSMENT AND PLAN: A 64-year-old male with multiorgan failure, recent alcohol toxicity with acute liver injury. He had profound acidemia. This has now resolved. He is improving. At this point, I do not think mesenteric ischemia is a very high likelihood and we will defer any operative exploration at this time. cc: Den Mooney MD
--- NOTE | 2019-12-02 23:36 | ECHO REPORT ---
ORDER DATE: 12/01/2019 MEASUREMENTS: Septal thickness 1.0, left ventricular internal diameter in diastole 5.3, posterior wall thickness 1.0, left ventricular internal diameter in systole 3.8, aortic root 3.8, left atrium 3.6. SUMMARY: 1. Technically difficult study due to limited acoustic window quality. 2. Aortic valve is trileaflet and opens normally on 2-dimensional images. Peak gradient across aortic valve is less than 10 mmHg. Mitral, tricuspid, and pulmonic valves are without evidence of structural abnormality with trace mitral regurgitation, trace tricuspid regurgitation, and mild pulmonic insufficiency. Estimated systolic PA pressure by Doppler is 40 mmHg suggesting mild pulmonary hypertension. Aortic root is normal in size. 3. Normal left ventricular dimensions demonstrated. Estimated left ventricular ejection fraction appears to be at least 55%. No regional wall motion abnormalities evident. Doppler suggests grade 1 left ventricular diastolic dysfunction. Left atrium, right atrium, right ventricle are normal in size with grossly preserved right ventricular systolic function. 4. No pericardial effusion. 5. Appearance of inferior vena cava suggests normal central venous pressure. CONCLUSIONS: 1. Technically difficult study. 2. Mild pulmonary hypertension by Doppler. 3. No significant valvular abnormality. 4. Estimated left ejection fraction at least 55%. 5. Grade 1 left ventricular diastolic dysfunction suggested. 6. Mild elevation in central venous pressure suggested. cc: Arturo Melendez MD
[2019-12-03] MEDS: ATIVAN IV PRN ×2 (04:32→21:52)
[2019-12-03] MEDS: MORPHINE IV PRN (04:32)
[2019-12-03] MEDS: ZOSYN 2.25 GM in NS 50 ML IV SCH (04:49)
[2019-12-03] MEDS: NS 1,000 ML IV SCH (04:49)
[2019-12-03] MEDS: ZYVOX 600 MG/D5W 600 MG/300 ML IVPB IV SCH (04:49)
[2019-12-03] MEDS ORDERED: CARDIZEM IV ONE (05:08)
[2019-12-03 05:19] LABS: BASO# 0.02 X1000 (0.0-0.2); BASO% 0.2 % (0.0-0.8); EOS# 0.12 X1000 (0.0-0.7); HEMATOCRIT 30.6 % (42.0-52.0); HEMOGLOBIN 10.6 g/dL (14.0-18.0); IMM GRAN# 0.05 X1000 (0.0-0.04); IMM GRAN% 0.4 % (0.0-0.5); LYMPH# 0.78 X1000 (1.2-3.4); LYMPH% 6.5 % (20.5-51.1); MCH 33.9 PG (27-31); MCHC 34.6 g/dL (33-37); MCV 97.8 FL (81-99); MONO# 0.26 X1000 (0.11-0.59); MONO% 2.2 % (1.7-9.3); NEUT# 10.72 X1000 (1.4-6.5); NEUT% 89.7 % (42.2-75.2); RBC 3.13 XMIL (4.7-6.1); WBC 11.95 X1000 (4.8-10.8)
[2019-12-03 05:20] LABS: PLT 28 X1000 (130-400)
[2019-12-03 05:22] LABS: ALB/GLOB RATIO 0.9; ALBUMIN 2.4 g/dL (3.5-5.0); CALCIUM 7.8 mg/dL (8.8-10.2); CREATININE 3.9 mg/dL (0.7-1.2); DIRECT BILIRUBIN 0.2 mg/dL (0.00-0.20); PHOSPHORUS 2.3 mg/dL (2.7-4.5); POTASSIUM 4.6 mmol/L (3.5-5.1); TOTAL BILIRUBIN 0.91 mg/dL (0.20-1.00)
[2019-12-03 05:22] LABS: ALLEN TEST YES; BLOOD TYPE ARTERIAL; HCO3-(ACT) 26.5 mmoll (20.0-26.0); METHB 0.8 % (0.0-1.5); O2HB 96.5 % (95.0-99.0); PCO2(98.6) 33 mmHg (35-45); PO2(98.6) 91 mmHg (60-100); SAMPLE BLOOD; SAO2 99.1 % (95.0-100.0); SRATE 22 BPM; TVOL 500 mL; pH(98.6) 7.49 (7.35-7.45)
[2019-12-03 05:25] LABS: MODALITY VENTILATOR
[2019-12-03] MEDS ORDERED: NS 500 ML IV ONE ×2 (05:34→06:07)
[2019-12-03] MEDS: HUMALOG SUBQ SCH ×4 (06:21→20:53)
[2019-12-03] MEDS: CARDIZEM 100 MG/NS 100 MG/100 ML IVPB IV SCH ×2 (06:33→11:01)
[2019-12-03] MEDS: NEO-SYNEPHRINE 50 MG in NS 250 ML IV SCH ×2 (06:33→15:27)
[2019-12-03] MEDS ORDERED: NS 2,000 ML MISC PRN (06:59)
--- NOTE | 2019-12-03 07:03 | Diag Imaging Result Doc PS360 ---
EXAM: CHEST-1 VIEW 12/03/2019 HISTORY: SOB TECHNIQUE: AP portable at [id number] COMMENT: There is an endotracheal tube with its tip slightly below the thoracic inlet and an NG tube which passes below the diaphragm. There is minimal ill-defined opacity over the right hemidiaphragm. This has improved since 12/02/2019 and the opacity previously present in the left base has nearly completely resolved. IMPRESSION: Improved bibasilar atelectasis versus pneumonia. Electronically signed by Phillip Carter 12/03/2019 7:01 AM
[2019-12-03 07:07] LABS: SEGS 100 % (42-75)
[2019-12-03] MEDS: LANTUS INSULIN SUBQ SCH (08:48)
[2019-12-03] MEDS: LEVAQUIN 250 MG/D5W 250 MG/50 ML IVPB IV SCH (08:48)
--- NOTE | 2019-12-03 08:50 | EKG Report ---
Test Performed on : 12/03/2019 05:01:58 AM Test Reason : ELEVATED HEART RATE Blood Pressure : / mmHG Vent. Rate : 161 BPM Atrial Rate : 174 BPM P-R Int : 000 ms QRS Dur : 084 ms QT Int : 308 ms P-R-T Axes : 000 025 005 degrees QTc Int : 504 ms Atrial fibrillation. with rapid ventricular response. Abnormal ECG No previous ECGs available Confirmed by Jc Reyes MD ([id number]) on 12/05/2019 12:15:26 PM
[2019-12-03] MEDS ORDERED: HALDOL IV PRN (08:57)
[2019-12-03] MEDS: TEFLARO 200 MG in NS 250 ML IV SCH ×2 (08:59→21:51)
[2019-12-03 09:25] LABS: INR 1.25; PROTIME 15.9 Seconds (11.0-16.0)
[2019-12-03 09:26] LABS: RETIC% 0.52 % (0.8-2.1); RETIC-HE 31.4 PG (28.2-36.6)
[2019-12-03] MEDS ORDERED: VITAMIN B-1 PO SCH (12:15)
[2019-12-03] MEDS ORDERED: CATHFLO IV ONE (12:19)
[2019-12-03] MEDS ORDERED: STERILE WATER INJ. INJ ONE (12:19)
[2019-12-03] MEDS ORDERED: SOLU-CORTEF IV ONE (12:34)
[2019-12-03 12:50] LABS: ALLEN TEST YES; BE 2.7 mmoll (-3.0-3.0); BLOOD TYPE ARTERIAL; METHB 0.5 % (0.0-1.5); O2HB 94.1 % (95.0-99.0); PCO2(98.6) 31 mmHg (35-45); PO2(98.6) 60 mmHg (60-100); SAMPLE BLOOD; SAO2 96.4 % (95.0-100.0); THB 9.8 g/dL (11.5-17.4); pH(98.6) 7.52 (7.35-7.45)
[2019-12-03 12:52] LABS: MODALITY VENTILATOR
--- NOTE | 2019-12-03 13:11 | PROVIDER PROGRESS NOTE ---
Progress Note Dr. Pérez Progress Note/Pulmonary and or critical care Subjective: The patient is intubated. He is awake. He denies any pain at this time. Patients daughter at the bedside. Norepinephrine is on standby, but Cardizem drip is on. FiO2 has been decreased to 45% at this time. Patient tolerates well. SLED scheduled today per Dr. Nelson, but has not started yet. We am going to start CPAP trial now with low level of pressure support (5cmH2O). Input was appreciated from Dr. Luther and other teams on the case. Objective: Vital Signs: 99.3 (persistent mildly elevated temperature in last 24 hours), [place] 96, RR 22, BP 81/59 and SaO2 95% on AC 22, 50%, 500, 5. I/O -770 ml Physical Examination: General: Intubated. Lying in bed with no acute distress noted. HEENT: Trachea midline. ETT and OGT in place. Mucus pink and moist. Chest: Mechanical ventilated. Symmetrical excursion. Mild crackles bibasilarly. CVS: Regular rate and rhythm with S1 and S2 noted. Abdomen: Semi-firm. Nondistended. Hypoactive bowel sounds in all 4 quadrants. Extremities: BLE trace edema. No cyanosis. No clubbing. Neuro: Awake, calm and cooperative. Follow simple commands. Labs and Radiology: Laboratory Results 12/02/19 12/02/19 12/02/19 11:01 15:48 20:19 WBC RBC Hgb Hct MCV MCH MCHC RDW Std Deviation Plt Count MPV Immature Gran % (Auto) Neut % (Auto) Lymph % (Auto) [place] % (Auto) Eos % (Auto) Baso % (Auto) Immature Gran # (Auto) Neut # (Auto) Lymph # (Auto) [place] # (Auto) Eos # (Auto) Baso # (Auto) Segmented Neutrophils Schistocytes Percent Retic Retic Hgb Equivalent PT INR PTT (Actin FS) Fibrinogen D-Dimer, Quantitative Specimen Type Sample Site pH pCO2 pO2 HCO3 Base Excess Oxyhemoglobin ABG O2 Sat (Calculated) ABG O2 Saturation ABG Carboxyhemoglobin ABG Methemoglobin Robert Test A-a O2 Difference Total Hemoglobin Lactate Blood Gas Modality Vent Mode Spontaneous Rate FiO2 % Tidal Volume PEEP Pressure Support Sodium Potassium Chloride Carbon Dioxide Anion Gap BUN Creatinine Estimated GFR/1.73 m2 BUN/Creatinine Ratio Glucose POC Glucose 266 H 157 H 193 H Calculated Osmolality Calcium Phosphorus Magnesium Total Bilirubin Direct Bilirubin AST ALT Alkaline Phosphatase Total Protein Albumin Globulin Albumin/Globulin Ratio Blood Type Blood Type Confirm Antibody Screen 12/03/19 12/03/19 12/03/19 04:20 04:50 04:50 WBC 11.95 H RBC 3.13 L Hgb 10.6 L Hct 30.6 L MCV 97.8 MCH 33.9 H MCHC 34.6 RDW Std Deviation 13.0 Plt Count 28 L* D MPV 12.0 H Immature Gran % (Auto) 0.4 Neut % (Auto) 89.7 H Lymph % (Auto) 6.5 L [place] % (Auto) 2.2 Eos % (Auto) 1.0 Baso % (Auto) 0.2 Immature Gran # (Auto) 0.05 H Neut # (Auto) 10.72 H Lymph # (Auto) 0.78 L [place] # (Auto) 0.26 Eos # (Auto) 0.12 Baso # (Auto) 0.02 Segmented Neutrophils 100 H Schistocytes Percent Retic Retic Hgb Equivalent PT INR PTT (Actin FS) Fibrinogen D-Dimer, Quantitative Specimen Type Sample Site pH pCO2 pO2 HCO3 Base Excess Oxyhemoglobin ABG O2 Sat (Calculated) ABG O2 Saturation ABG Carboxyhemoglobin ABG Methemoglobin Robert Test A-a O2 Difference Total Hemoglobin Lactate Blood Gas Modality Vent Mode Spontaneous Rate FiO2 % Tidal Volume PEEP Pressure Support Sodium 140 Potassium 4.6 Chloride 105 Carbon Dioxide 25 Anion Gap 10 BUN 32 H Creatinine 3.9 H Estimated GFR/1.73 m2 16 BUN/Creatinine Ratio 8 Glucose 191 H POC Glucose Calculated Osmolality 291 Calcium 7.8 L Phosphorus 2.3 L Magnesium 1.8 Total Bilirubin 0.91 Direct Bilirubin 0.20 AST 286 H ALT 130 H Alkaline Phosphatase 63 Total Protein 5.0 L Albumin 2.4 L Globulin 2.6 Albumin/Globulin Ratio 0.9 Blood Type Blood Type Confirm Antibody Screen 12/03/19 12/03/19 12/03/19 04:50 05:00 05:12 WBC RBC Hgb Hct MCV MCH MCHC RDW Std Deviation Plt Count MPV Immature Gran % (Auto) Neut % (Auto) Lymph % (Auto) [place] % (Auto) Eos % (Auto) Baso % (Auto) Immature Gran # (Auto) Neut # (Auto) Lymph # (Auto) [place] # (Auto) Eos # (Auto) Baso # (Auto) Segmented Neutrophils Schistocytes Percent Retic Retic Hgb Equivalent PT INR PTT (Actin FS) Fibrinogen D-Dimer, Quantitative Specimen Type ARTERIAL Sample Site R RADIAL pH 7.49 H pCO2 33 L pO2 91 HCO3 26.5 H Base Excess 2.0 Oxyhemoglobin 96.5 ABG O2 Sat (Calculated) 15.0 ABG O2 Saturation 99.1 ABG Carboxyhemoglobin 1.80 ABG Methemoglobin 0.8 Robert Test YES A-a O2 Difference 224.0 Total Hemoglobin 11.0 L Lactate 2.10 Blood Gas Modality VENTILATOR Vent Mode A/C Spontaneous Rate 22 FiO2 % 50.0 Tidal Volume 500 PEEP 5.0 Pressure Support Sodium Potassium Chloride Carbon Dioxide Anion Gap BUN Creatinine Estimated GFR/1.73 m2 BUN/Creatinine Ratio Glucose POC Glucose 194 H Calculated Osmolality Calcium Phosphorus Magnesium Total Bilirubin Direct Bilirubin AST ALT Alkaline Phosphatase Total Protein Albumin Globulin Albumin/Globulin Ratio Blood Type Blood Type Confirm A NEGATIVE Antibody Screen 12/03/19 12/03/19 12/03/19 06:28 08:28 08:28 WBC RBC Hgb Hct MCV MCH MCHC RDW Std Deviation Plt Count MPV Immature Gran % (Auto) Neut % (Auto) Lymph % (Auto) [place] % (Auto) Eos % (Auto) Baso % (Auto) Immature Gran # (Auto) Neut # (Auto) Lymph # (Auto) [place] # (Auto) Eos # (Auto) Baso # (Auto) Segmented Neutrophils Schistocytes Percent Retic Retic Hgb Equivalent PT 15.9 INR 1.25 PTT (Actin FS) 31.7 Fibrinogen D-Dimer, Quantitative Specimen Type Sample Site pH pCO2 pO2 HCO3 Base Excess Oxyhemoglobin ABG O2 Sat (Calculated) ABG O2 Saturation ABG Carboxyhemoglobin ABG Methemoglobin Robert Test A-a O2 Difference Total Hemoglobin Lactate Blood Gas Modality Vent Mode Spontaneous Rate FiO2 % Tidal Volume PEEP Pressure Support Sodium Potassium Chloride Carbon Dioxide Anion Gap BUN Creatinine Estimated GFR/1.73 m2 BUN/Creatinine Ratio Glucose POC Glucose Calculated Osmolality Calcium Phosphorus Magnesium Total Bilirubin Direct Bilirubin AST ALT Alkaline Phosphatase Total Protein Albumin Globulin Albumin/Globulin Ratio Blood Type A NEGATIVE Blood Type Confirm Antibody Screen NEGATIVE 12/03/19 12/03/19 12/03/19 08:28 08:28 10:27 WBC RBC Hgb Hct MCV MCH MCHC RDW Std Deviation Plt Count MPV Immature Gran % (Auto) Neut % (Auto) Lymph % (Auto) [place] % (Auto) Eos % (Auto) Baso % (Auto) Immature Gran # (Auto) Neut # (Auto) Lymph # (Auto) [place] # (Auto) Eos # (Auto) Baso # (Auto) Segmented Neutrophils Schistocytes Percent Retic 0.52 L Retic Hgb Equivalent 31.4 PT INR PTT (Actin FS) Fibrinogen 660.0 H D-Dimer, Quantitative 3.26 H Specimen Type Sample Site pH pCO2 pO2 HCO3 Base Excess Oxyhemoglobin ABG O2 Sat (Calculated) ABG O2 Saturation ABG Carboxyhemoglobin ABG Methemoglobin Robert Test A-a O2 Difference Total Hemoglobin Lactate Blood Gas Modality Vent Mode Spontaneous Rate FiO2 % Tidal Volume PEEP Pressure Support Sodium Potassium Chloride Carbon Dioxide Anion Gap BUN Creatinine Estimated GFR/1.73 m2 BUN/Creatinine Ratio Glucose POC Glucose 224 H Calculated Osmolality Calcium Phosphorus Magnesium Total Bilirubin Direct Bilirubin AST ALT Alkaline Phosphatase Total Protein Albumin Globulin Albumin/Globulin Ratio Blood Type Blood Type Confirm Antibody Screen 12/03/19 12:45 WBC RBC Hgb Hct MCV MCH MCHC RDW Std Deviation Plt Count MPV Immature Gran % (Auto) Neut % (Auto) Lymph % (Auto) [place] % (Auto) Eos % (Auto) Baso % (Auto) Immature Gran # (Auto) Neut # (Auto) Lymph # (Auto) [place] # (Auto) Eos # (Auto) Baso # (Auto) Segmented Neutrophils Schistocytes Percent Retic Retic Hgb Equivalent PT INR PTT (Actin FS) Fibrinogen D-Dimer, Quantitative Specimen Type ARTERIAL Sample Site R RADIAL pH 7.52 H pCO2 31 L pO2 60 HCO3 27.0 H Base Excess 2.7 Oxyhemoglobin 94.1 L ABG O2 Sat (Calculated) 13.0 L ABG O2 Saturation 96.4 ABG Carboxyhemoglobin 1.90 ABG Methemoglobin 0.5 Robert Test YES A-a O2 Difference 222.0 Total Hemoglobin 9.8 L Lactate 1.60 Blood Gas Modality VENTILATOR Vent Mode Spontaneous Rate FiO2 % 45.0 Tidal Volume PEEP 5.0 Pressure Support 5.00 Sodium Potassium Chloride Carbon Dioxide Anion Gap BUN Creatinine Estimated GFR/1.73 m2 BUN/Creatinine Ratio Glucose POC Glucose Calculated Osmolality Calcium Phosphorus Magnesium Total Bilirubin Direct Bilirubin AST ALT Alkaline Phosphatase Total Protein Albumin Globulin Albumin/Globulin Ratio Blood Type Blood Type Confirm Antibody Screen Assessment: Acute respiratory failure. Intubated on 11/30/19. Bibasilar pulmonary edema vs. pneumonia +/- atelectasis. CT thorax/abd/pelvis w/o contrast on 12/01/19 revealed moderate indetermine opacifications of both lower lobes, indicating any combination of atelectasis, infiltrate or effusion. CXR today shows improved bibasilar atelectasis vs. pneumonia. Septic shock. Anion gap metabolic acidosis and metabolic acidosis. Improved. Alcohol intoxication. Acute renal insufficiency with electrolyte abnormality. On SLED per Dr. Nelson. Thrombocytopenia, critical. worsening. Prognosis is guarded. Plan: Continue current treatment and supportive care per admitting and other teams on the case. We are starting weaning trials today. We will check ABG one hour after weaning trials start and will decide extubation or not based on patients clinical response and ABG. Broad spectrum antibiotics including Linezolid and Zosyn. We check Ventilator settings and titrate it to Patients needs per clinical protocols. We will closely monitor patients response to the ventilator titration. We titrate Sedation (IV Ativan 2mg Q2h prn and IV morphine 4mg Q3h prn) to the patients needs per clinical protocols. We will closely monitor patients response to the sedation titration. We titrate Pressors (Norepinephrine) to the patients needs per clinical protocols. We will closely monitor patients response to the pressor titration. I discuss patient's condition and care plan with family at the bedside and all questions have been answered. Evaluation time in minutes: 33 minutes.
[2019-12-03] MEDS: ALBUMIN 25% IV SCH (14:46)
--- NOTE | 2019-12-03 14:56 | PROGRESS NOTE ---
DATE: 12/03/2019 SUBJECTIVE: Today, I saw Mr. Contreras in the Critical Care Unit. He was fixing to go on dialysis machine. He remained hypotensive on 2 pressors. He was also going through a spontaneous breathing trial. He was awake and alert. He referred to be doing well. He seems to be tolerating well the breathing trial. OBJECTIVE: Vital signs: Blood pressure was 86/54, pulse of 99, respirations 22, temperature is 98.3 degrees. The patient is saturating 98%. General: Mr. Contreras is a 64-year-old elderly gentleman. He was in bed. He is intubated going through a breathing trial. He seems to be pretty comfortable. HEENT: Mucosa is pink and moist. Anicteric. Acyanotic. Neck: Supple. Chest: Clear to auscultation. No crepitations. No rhonchi. Cardiovascular: Regular rate and rhythm with occasional extrasystolic beats. No murmurs, no rubs, no gallops. Abdomen: Soft. Bowel sounds present. There is a Vas-Cath in the right femoral vein. Extremities: No pedal edema. 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 He is able to follow basic commands. He is however, remarkably weak. LABORATORY DATA: WBC is 11.96, hemoglobin is 10.6. Platelet count 38,000. Chemistry is also reviewed. Bicarb is 25, creatinine is 3.9. The patient's intake and output, urine output was just 85. The patient had about 3000 ultrafiltrated yesterday. He is also fixing to go under dialysis today again. IMAGING STUDIES: A chest x-ray which was done early on did show improved bibasilar atelectasis versus pneumonia. ASSESSMENT: 1. Refractory shock, presumably septic in etiology. So far, initial blood culture has been negative. Only 1 was positive for coag-negative staphylococcus. There has been a repeat since 3 days ago but that is still pending. We think the source is probably from the lungs. The patient continues to be on 2 different types of pressors (Kj-Synephrine and Levophed). Blood pressures continue to be on the lower end. I will put him on also stress doses of steroids to see if that helps some. 2. Multifocal lower lobe pneumonia. Patient is on initially on Zyvox and zosyn, however, these 2 have been discontinued because of thrombocytopenia. We will start the patient on ceftaroline and Levaquin. 3. Acute hypoxemic and hypercarbic respiratory failure. Patient is on the ventilator. He is going through SBT. He seems to be pretty comfortable. We will wait on Pulmonary for further recommendations. 4. Alcohol use and abuse. Patient has been counseled. 5. Worsening thrombocytopenia. We think this is probably medication induced. So far, there is no evidence of peripheral destruction. His reticulocyte count is low which will be an indication from the bone marrow itself. I have discontinued the possible offending medications and switched them to a different antibiotics and will continue to monitor. 6. Transient episode of atrial fibrillation rapid ventricular response from last night. I think this is probably all related to the acute critical care nurse including the pneumonia. We will continue to monitor. Patient is on Cardizem drip. 7. Rhabdomyolysis stable. 8. Severe lactic acidosis on presentation improved. cc: Wally Luther MD MTDD
--- NOTE | 2019-12-03 15:51 | PROVIDER PROGRESS NOTE ---
Progress Note Subjective: intubated, but follows commands, nods his head to yes and no questions. Denies any complaints. Objective: temperature 100.0, pulse 90, respirations 22, blood pressure 106/66, 02 sat 96% on 50% FiO2 mechanical ventilation. General: chronically ill appearing white male lying in bed and no acute distress. HEENT: Normocephalic a traumatic. Pupils equal and reactive. Conjunctival edema noted. Conjunctiva pale. Trachea midline. OG tube to oral cavity on low intermittent suction with dark green output. Skin: scattered areas of erythema. NecK: supple, 6-8 cm JVD observed. Cardiovascular: S1S2, regular rate and rhythm. No murmurs or gallops noted. Respiratory: coarse lungs equal with air entry. No crackles or rales noted. Abdo men: slightly firm, nondistended nontender. Bowel sounds hypoactive. : not inspected, Knapp in place with minimal urine output. Extremities: generalized edema to bilateral upper extremities with one plus pitting to his bilateral lower extremities and hips. Neurological: able to follow commands. Labs: WBC 11.95, hemoglobin 10.6, hematocrit 30.6, platelet count 28, sodium 140, potassium 4.6, chloride 105, carbon dioxide 25, BUN 32, creatinine 3.9, phosphorus 2.3, Albumin 2.4. Intake 3315, output 4085. Impression: Acute kidney injury. Likely ischemic acute tubular necrosis related to sepsis. He had a 3L ultrafiltration yesterday and will have intermittent hemodialysis at bedside today with a goal of 2L as tolerated. Minimal urine output. Atrial fibrillation with RVR. Cardizem drip in place. Blood pressure. Stable with neosynephrine. Anemia. Stable. Thrombocytopenia. 1 unit platelets ordered. On zosyn and zyvox. Volume. Slightly expanded. Received fluid bolus and has continuous fluid going. We will stop the IVF and also give Albumin. Electrolytes. Improved. Metabolic acidosis. Likely kidney related. Improved. Medication review. No changes.
--- NOTE | 2019-12-03 17:41 | CARDIOLOGY CONSULTATION ---
DATE: 12/03/2019 CHIEF COMPLAINT ON PRESENTATION: Unresponsiveness. REASON FOR CONSULTATION: Atrial fibrillation. HISTORY OF PRESENT ILLNESS: Mr. Contreras is a 64-year-old gentleman brought in by EMS on the [facility] when he was found by a neighbor. He was unresponsive. Initially blood pressures were in the 80s systolic with a rectal temperature of 85. Over that time period he was rewarmed, intubated. Developed acute renal insufficiency currently on a SLED. He has been treated for sepsis. At some point during the previous evening he converted into atrial fib, was placed on a diltiazem infusion. Presently, the patient is somewhat alert. He is not as best I can tell with any acute complaints he remains on the ventilator. He is not sedated. PAST MEDICAL HISTORY: 1. Hypertension. 2. Diabetes. 3. Alcohol abuse. SOCIAL HISTORY: Apparent excessive alcohol intake at home. REVIEW OF SYSTEMS/FAMILY HISTORY: Unable to be obtained secondary to current intubated status. PHYSICAL EXAMINATION: Patient is afebrile more recently. He had a T-max of 100 degrees on the and had a T-max of 100.6 degrees on the . His heart rates during my examination were in the 110s. Over the last several hours he has been ranging in the 110s to 160s. His blood pressure most recently is 90/59.General: He is no acute distress. HEENT: Oropharynx moist. Poor dentition. Eye examination: [place] conjunctivae, white sclerae. Neck: Examination shows no obvious thyromegaly or thyroid tenderness. Cardiovascular: He sounds to be in a irregularly irregular rhythm. He is currently in atrial fibrillation. He has no murmurs. He has warm and well perfused extremities. Chest: His chest exam has mechanical breath sounds heard throughout all lung mcgowan. He has no increased work of breathing. Abdomen: Soft, nontender, nondistended. He has no obvious organomegaly. Skin: Warm and dry throughout without any rashes. Neurological: He seems to be localizing to the examiner with verbal and physical stimuli. PERTINENT DATA: He had an echocardiogram done on the that demonstrates an EF of at least 55% with no obvious regional wall motion abnormalities. He has trace MR, trace TR, mild pulmonic insufficiency. PA pressure on that study was 40. Grade 1 diastolic dysfunction was noted. His most recent chest x-ray this morning demonstrated improved bibasilar atelectasis versus pneumonia. He had an EKG checked on the at 5:01 that shows rapid atrial fibrillation, rate of 161 beats per minute. His lab data shows a white count of 11.9. This has trended down since on the when it was 24. His hematocrit is 30 his platelet count is 228,000. This has trended down since the when it was 311,000. His sodium is 140, potassium 4.6, BUN 32, creatinine 3.9. This has trended up since the when it was 2.8. His AST is 286, ALT 130 which is improved over the last couple of days. Albumin is 2.4. ASSESSMENT: Mr. Contreras is a 64-year-old gentleman who presented after being found down. He was found to be hypothermic and acute alcohol intoxication. He has developed sepsis and renal insufficiency over that time. Last night he was found to be in atrial fibrillation. PLAN: I would continue the diltiazem infusion. He seems to be achieving reasonable rate control of around 110 or less. I do not have any acute recommendations. He had an echocardiogram that was unremarkable and he recently had a thyroid studies checked on the that were unremarkable as well. We will continue to follow for rate control at this time. cc: Yao Gamez MD
[2019-12-04] MEDS: CARDIZEM 100 MG/NS 100 MG/100 ML IVPB IV SCH (02:55)
[2019-12-04] MEDS: ATIVAN IV PRN ×2 (02:55→08:42)
[2019-12-04 05:17] LABS: ALLEN TEST YES; BE 2.8 mmoll (-3.0-3.0); BLOOD TYPE ARTERIAL; HCO3-(ACT) 27.1 mmoll (20.0-26.0); METHB 1.1 % (0.0-1.5); O2(CT) 14.5 mL/dL (15.0-23.0); O2HB 95.1 % (95.0-99.0); PCO2(98.6) 30 mmHg (35-45); PO2(98.6) 74 mmHg (60-100); SAMPLE BLOOD; SAO2 97.5 % (95.0-100.0); SRATE 22 BPM; THB 10.8 g/dL (11.5-17.4); TVOL 500 mL; pH(98.6) 7.53 (7.35-7.45)
[2019-12-04 05:18] LABS: MODALITY VENTILATOR
[2019-12-04] MEDS ORDERED: NS 2,000 ML MISC PRN (06:18)
[2019-12-04 06:39] LABS: BASO# 0.01 X1000 (0.0-0.2); BASO% 0.1 % (0.0-0.8); HEMATOCRIT 27.9 % (42.0-52.0); HEMOGLOBIN 9.2 g/dL (14.0-18.0); IMM GRAN# 0.03 X1000 (0.0-0.04); IMM GRAN% 0.4 % (0.0-0.5); LYMPH# 0.71 X1000 (1.2-3.4); LYMPH% 8.4 % (20.5-51.1); MCH 31.9 PG (27-31); MCV 96.9 FL (81-99); MONO# 0.27 X1000 (0.11-0.59); MONO% 3.2 % (1.7-9.3); MPV 12.1 FL (7.4-10.4); NEUT# 7.41 X1000 (1.4-6.5); NEUT% 87.9 % (42.2-75.2); PLT 28 X1000 (130-400); RBC 2.88 XMIL (4.7-6.1); RDW 12.1 % (11.5-14.5); WBC 8.43 X1000 (4.8-10.8)
--- NOTE | 2019-12-04 06:44 | Diag Imaging Result Doc PS360 ---
CHEST-1 VIEW - 12/04/2019 INDICATION: SOB COMPARISON: 12/03/2019 FINDINGS: Support tubes are stable and in good position. There is worsening infiltrate at the left lung base. Stable right perihilar infiltrate. Heart size remains normal. Pulmonary vascularity is normal. IMPRESSION: Worsening left lower lobe infiltrate or atelectasis. Electronically signed by Anthony Sanders 12/04/2019 6:42 AM
[2019-12-04] MEDS: HUMALOG SUBQ SCH ×4 (06:51→20:19)
[2019-12-04 07:24] LABS: ALB/GLOB RATIO 1.2; ALBUMIN 2.9 g/dL (3.5-5.0); CALCIUM 8.2 mg/dL (8.8-10.2); CREATININE 5.6 mg/dL (0.7-1.2); DIRECT BILIRUBIN 0.3 mg/dL (0.00-0.20); POTASSIUM 4.7 mmol/L (3.5-5.1); TOTAL BILIRUBIN 1.06 mg/dL (0.20-1.00); TOTAL PROTEIN 5.3 g/dL (6.3-8.3)
[2019-12-04] MEDS: TEFLARO 200 MG in NS 250 ML IV SCH ×2 (08:42→19:30)
[2019-12-04] MEDS: LEVAQUIN 250 MG/D5W 250 MG/50 ML IVPB IV SCH (08:42)
[2019-12-04] MEDS ORDERED: FOLIC ACID PO SCH (09:00)
[2019-12-04] MEDS ORDERED: THERA M PLUS PO SCH (09:00)
[2019-12-04] MEDS: ALBUMIN 25% IV SCH (09:04)
[2019-12-04] MEDS: SOLU-CORTEF IV SCH ×2 (09:04→17:11)
[2019-12-04] MEDS: LANTUS INSULIN SUBQ SCH (09:05)
[2019-12-04] MEDS: M.V.I.-12 10 ML, FOLIC ACID 1 MG, MAGNESIUM SULFATE 1 GM, THIAMINE 100 MG in NS 1,000 ML IV SCH (10:46)
[2019-12-04 10:49] LABS: ALLEN TEST YES; BE 3.2 mmoll (-3.0-3.0); BLOOD TYPE ARTERIAL; HCO3-(ACT) 27.4 mmoll (20.0-26.0); METHB 0.9 % (0.0-1.5); O2HB 94.3 % (95.0-99.0); PCO2(98.6) 36 mmHg (35-45); PO2(98.6) 68 mmHg (60-100); SAMPLE BLOOD; SAO2 96.8 % (95.0-100.0); pH(98.6) 7.48 (7.35-7.45)
[2019-12-04 10:50] LABS: MODALITY VENTILATOR
--- NOTE | 2019-12-04 13:07 | PROGRESS NOTE ---
DATE: 12/04/2019 SUBJECTIVE: I have seen and examined Mr. Contreras today. He continues to be in critical care unit. He is still intubated. I understand yesterday he did pretty well during SBT. However, at some point, he became slightly hypoxemic and he was put back on full mechanical ventilation. Mr. Contreras was also remarkably hypotensive for most part of yesterday. However, after he was started on steroids, blood pressures have been stable. Last night, phenylephrine was discontinued, and this morning, the Levophed has also been discontinued. OBJECTIVE: Vital Signs: His current vitals are blood pressure 123/86, pulse of 66, respirations 22, temperature 98.4 degrees. General: Mr. Contreras is a 64-year-old gentleman. He is in bed. He is currently intubated and remains under the vent. Seems to be synchronizing well. Mucosa is pink and moist. Anicteric. Acyanotic. Neck: Supple. Chest: Good air entry bilaterally. There are no crepitations. No rhonchi. Cardiovascular: Regular rate and rhythm. No murmurs, no rubs, no gallops Abdomen: Soft. Bowel sounds present. There is a Vas-Cath in the right femoral vein. Extremities: No pedal edema. [facility]ISTS: Patient was sleepy but easily arousable and seems to follow commands. He seems, however, to be remarkably weak. LABORATORY DATA: WBC is 8.43, hemoglobin is 9.2, platelet count of 28,000. Chemistry is suggestive of renal failure. AST and ALT continues to be trending down. IMAGING STUDIES: A chest x-ray shows worsening left lower lobe infiltrates or atelectasis. I'S AND O'S: Urine output was 110. The patient is currently positive balance of 5507. ASSESSMENT: 1. Refractory septic shock. So far, blood cultures have all been negative. We think this is from severe pneumonia. Antibiotics have been changed since yesterday because of thrombocytopenia. He was on Zyvox and Zosyn for I think about 5 days, was discontinued yesterday. The patient's blood pressures have now stabilized since yesterday after he was started on steroids. Kj and Levophed have both been discontinued. We are not going to be titrating him off the steroids. 2. Multifocal lower lobe pneumonias. Patient is currently on ceftaroline and Levaquin. White cell count is normalized. 3. Acute hypoxemic and hypercarbic respiratory failure. The patient is on the mechanical ventilator. He went through spontaneous breathing trial yesterday. I understand he became somehow hypoxemic during the session. We are pending another trial today. 4. Alcohol use and abuse prior to hospitalization noted and patient has been counseled. 5. Thrombocytopenia. The patient does not show any evidence of bleeding. He did get 1 unit of platelet transfusion yesterday, however, that did not make any difference. His laboratory data, however, does not seems to suggest any ongoing peripheral destruction. I think this is all a combination of severe sepsis, bone marrow suppression from critical care illness and probably longstanding side effects of the alcohol use and abuse. However, we are going to consult Hematology/Oncology to evaluate the patient to make sure we are not missing anything. 6. Transient episode of atrial fibrillation with rapid ventricular response. The patient was started on Cardizem drip. His heart rate as well as his rhythm have normalized. The patient has actually been off the Cardizem drip since this morning. 7. Rhabdomyolysis, stable. 8. Severe lactic acidosis on presentation, improved. 9. Acute kidney injury presumably from acute tubular necrosis with no recovery. Patient is on hemodialysis. 10. Transaminitis, most likely multifactorial in etiology. We presume the patient has an underlying chronic liver disease from alcohol use, which got worsen with possible ischemic liver injury. Liver enzymes are trending down. PLAN: In general, I think Mr. Contreras is doing well and he is probably going to pass his SBT today and hopefully can be extubated. His white cell count has normalized. However, his chest x-ray seems to suggest otherwise. His antimicrobials were changed yesterday. He is currently on ceftaroline and Levaquin. We will get Infectious Disease to evaluate him as well. Mr. Contreras's platelet count remained low, even after he was transfused 1 unit of platelets. We will get Hematology/Oncology to also evaluate him. Mr. Contreras is being seen by other subspecialties including Pulmonary Medicine, Surgery and Nephrology, and we appreciate their input. cc: MD RODRIGUEZ Vega
--- NOTE | 2019-12-04 16:15 | PROVIDER PROGRESS NOTE ---
Progress Note Dr. Pérez Progress Note/Pulmonary and or critical care Subjective: The patient is intubated. He has been on CPAP trial since 949. He tolerates well. He is awake, calm and cooperative. Phenylephrine has been discontinued since yesterday afternoon. ABG values at 1038 are within acceptable range. We do suction at this time by the bedside and patient shows strong cough effort. We are going to extubate him. Patients daughter shows up when we are leaving. We do explain patients condition and our care plan to her. Input was appreciated from Dr. Luther and other teams on the case. Objective: Vital Signs: 98.4 (Highest temperature 99.7 in last 24 hours), AK 66, RR 22, BP 123/86 and SaO2 95% on AC 22, 50%, 500, 5. I/O +1293 ml Physical Examination: General: Intubated. Lying in bed with no acute distress noted. HEENT: Trachea midline. ETT and OGT in place. Mucus pink and moist. Chest: Even and unlabored. Symmetrical excursion. Mild inspiratory crackles on LLL with good air entry on the right side of the lung. CVS: Regular rate and rhythm with S1 and S2 noted. Abdomen: Soft. Nondistended. Hypoactive bowel sounds in all 4 quadrants. Extremities: BLE trace edema. No cyanosis. No clubbing. Neuro: Awake, calm and cooperative. Follow simple commands. Labs and Radiology: Laboratory Results 12/03/19 12/03/19 12/04/19 16:46 20:50 04:30 WBC RBC Hgb Hct MCV MCH MCHC RDW Std Deviation Plt Count MPV Immature Gran % (Auto) Neut % (Auto) Lymph % (Auto) Marin % (Auto) Eos % (Auto) Baso % (Auto) Immature Gran # (Auto) Neut # (Auto) Lymph # (Auto) Marin # (Auto) Eos # (Auto) Baso # (Auto) PTT (Actin FS) Specimen Type Sample Site pH pCO2 pO2 HCO3 Base Excess Oxyhemoglobin ABG O2 Sat (Calculated) ABG O2 Saturation ABG Carboxyhemoglobin ABG Methemoglobin Robert Test A-a O2 Difference Total Hemoglobin Lactate Blood Gas Modality Vent Mode Spontaneous Rate FiO2 % Tidal Volume PEEP Pressure Support CPAP Sodium 143 Potassium 4.7 Chloride 104 Carbon Dioxide 23 L Anion Gap 16 BUN 61 H D Creatinine 5.6 H Estimated GFR/1.73 m2 10 BUN/Creatinine Ratio 11 Glucose 152 H POC Glucose 184 H 151 H Calculated Osmolality 305 Calcium 8.2 L Phosphorus Total Bilirubin 1.06 H Direct Bilirubin 0.30 H AST 182 H ALT 107 H Alkaline Phosphatase 61 Total Protein 5.3 L Albumin 2.9 L Globulin 2.4 Albumin/Globulin Ratio 1.2 12/04/19 12/04/19 12/04/19 04:30 04:30 05:06 WBC 8.43 RBC 2.88 L Hgb 9.2 L Hct 27.9 L MCV 96.9 MCH 31.9 H MCHC 33.0 RDW Std Deviation 12.1 Plt Count 28 L* MPV 12.1 H Immature Gran % (Auto) 0.4 Neut % (Auto) 87.9 H Lymph % (Auto) 8.4 L Marin % (Auto) 3.2 Eos % (Auto) 0.0 Baso % (Auto) 0.1 Immature Gran # (Auto) 0.03 Neut # (Auto) 7.41 H Lymph # (Auto) 0.71 L Marin # (Auto) 0.27 Eos # (Auto) 0.00 Baso # (Auto) 0.01 PTT (Actin FS) Specimen Type ARTERIAL Sample Site R RADIAL pH 7.53 H pCO2 30 L pO2 74 HCO3 27.1 H Base Excess 2.8 Oxyhemoglobin 95.1 ABG O2 Sat (Calculated) 14.5 L ABG O2 Saturation 97.5 ABG Carboxyhemoglobin 1.40 ABG Methemoglobin 1.1 Robert Test YES A-a O2 Difference 245.0 Total Hemoglobin 10.8 L Lactate 1.90 Blood Gas Modality VENTILATOR Vent Mode A/C Spontaneous Rate 22 FiO2 % 50.0 Tidal Volume 500 PEEP 5.0 Pressure Support CPAP Sodium Potassium Chloride Carbon Dioxide Anion Gap BUN Creatinine Estimated GFR/1.73 m2 BUN/Creatinine Ratio Glucose POC Glucose Calculated Osmolality Calcium Phosphorus 3.0 Total Bilirubin Direct Bilirubin AST ALT Alkaline Phosphatase Total Protein Albumin Globulin Albumin/Globulin Ratio 12/04/19 12/04/19 12/04/19 05:31 08:34 10:27 WBC RBC Hgb Hct MCV MCH MCHC RDW Std Deviation Plt Count MPV Immature Gran % (Auto) Neut % (Auto) Lymph % (Auto) Marin % (Auto) Eos % (Auto) Baso % (Auto) Immature Gran # (Auto) Neut # (Auto) Lymph # (Auto) Marin # (Auto) Eos # (Auto) Baso # (Auto) PTT (Actin FS) 28.2 Specimen Type Sample Site pH pCO2 pO2 HCO3 Base Excess Oxyhemoglobin ABG O2 Sat (Calculated) ABG O2 Saturation ABG Carboxyhemoglobin ABG Methemoglobin Robert Test A-a O2 Difference Total Hemoglobin Lactate Blood Gas Modality Vent Mode Spontaneous Rate FiO2 % Tidal Volume PEEP Pressure Support CPAP Sodium Potassium Chloride Carbon Dioxide Anion Gap BUN Creatinine Estimated GFR/1.73 m2 BUN/Creatinine Ratio Glucose POC Glucose 143 H 168 H Calculated Osmolality Calcium Phosphorus Total Bilirubin Direct Bilirubin AST ALT Alkaline Phosphatase Total Protein Albumin Globulin Albumin/Globulin Ratio 12/04/19 12/04/19 10:38 15:38 WBC RBC Hgb Hct MCV MCH MCHC RDW Std Deviation Plt Count MPV Immature Gran % (Auto) Neut % (Auto) Lymph % (Auto) Marin % (Auto) Eos % (Auto) Baso % (Auto) Immature Gran # (Auto) Neut # (Auto) Lymph # (Auto) Marin # (Auto) Eos # (Auto) Baso # (Auto) PTT (Actin FS) Specimen Type ARTERIAL Sample Site R RADIAL pH 7.48 H pCO2 36 pO2 68 HCO3 27.4 H Base Excess 3.2 H Oxyhemoglobin 94.3 L ABG O2 Sat (Calculated) 12.0 L ABG O2 Saturation 96.8 ABG Carboxyhemoglobin 1.70 ABG Methemoglobin 0.9 Robert Test YES A-a O2 Difference 244.0 Total Hemoglobin 9.0 L Lactate 1.50 Blood Gas Modality VENTILATOR Vent Mode CPAP Spontaneous Rate FiO2 % 50.0 Tidal Volume PEEP Pressure Support 5.00 CPAP 5.0 Sodium Potassium Chloride Carbon Dioxide Anion Gap BUN Creatinine Estimated GFR/1.73 m2 BUN/Creatinine Ratio Glucose POC Glucose 128 H Calculated Osmolality Calcium Phosphorus Total Bilirubin Direct Bilirubin AST ALT Alkaline Phosphatase Total Protein Albumin Globulin Albumin/Globulin Ratio Assessment: Acute respiratory failure. Intubated on 11/30/19. Extubation planning today. Bibasilar pulmonary edema vs. pneumonia +/- atelectasis. CT thorax/abd/pelvis w/o contrast on 12/01/19 revealed moderate indetermine opacifications of both lower lobes, indicating any combination of atelectasis, infiltrate or effusion. CXR today shows worsening LLL infiltrate or atelectasis. Septic shock. Anion gap metabolic acidosis, mild metabolic alkalosis and respiratory al kalosis. Alcohol intoxication. Acute renal insufficiency with electrolyte abnormality. On SLED per Dr. Nelson. Thrombocytopenia, critical. Prognosis is guarded. Plan: Continue current treatment and supportive care per admitting and other teams on the case. Weaning trials daily since 12/03/19. We are going to extubate patient, start BiPAP after extubation and discontinue sedatives including IV morphine and Ativan. Broad spectrum antibiotics including Linezolid and Zosyn. We discuss patients condition and care plan with patients daughter and all questions have been answered. Evaluation time in minutes: 34 minutes.
--- NOTE | 2019-12-04 18:02 | CARDIOLOGY PROGRESS NOTE ---
DATE: 12/04/2019 SUBJECTIVE: Mr. Contreras continues on the ventilator. He is alert, follows commands. PHYSICAL EXAMINATION: He has been afebrile over the last 24 hours. Heart rate is in the 60s. He appears to have converted into a sinus rhythm. His blood pressure is 123/86. General: He is in no acute distress. Cardiovascular: Regular rate and rhythm. He has no murmurs. He has no S3. He has no lower extremity edema. Chest: Coarse breath sounds. Mechanical breath sounds are heard throughout all lung mcgowan. Abdomen: Soft, nontender. PERTINENT DATA: White count 8.4, which has trended down from 24 on the 9th. His hematocrit is 27.9, which has trended down from 39 on the 9th. His platelet count is 28,000, which is stable from yesterday. His sodium is 143, potassium is 4.7, his BUN is 61, with a creatinine of 5.6, which is up from 3.9 yesterday. AST and ALT are 182 and 107 respectively. ASSESSMENT: Mr. Contreras is a 64-year-old gentleman with respiratory failure and likely sepsis. He has acute renal insufficiency and atrial fibrillation. PLAN: He has converted into sinus rhythm. I would not recommend initiation of anticoagulation at this time given his issues with thrombocytopenia. At present, I do not have any acute recommendations. He has a preserved ejection fraction by echocardiogram earlier this hospitalization. cc: Yao Gamez MD
--- NOTE | 2019-12-04 18:22 | INFECTIOUS DISEASE CONSULT REP ---
DATE: 12/04/2019 CONCLUSION: Dr. Luther asked me to see the patient about a worsening pneumonia in this patient. The patient has 1 of 4 blood cultures positive for a coagulase-negative staph. This is a contaminate. The patient may have an immunoglobulin deficiency. RECOMMENDATIONS: Since the patient's antibiotics were just changed yesterday, I think it would be reasonable to continue with them and see how the patient does. Specifically, he is on a combination of ceftaroline and Levaquin. The doses of both antibiotics have been modified because of the patient's renal failure. The patient's blood culture positive for coagulase-negative staph is a contaminant and does not require antibiotic treatment. I am going to check the patient's immunoglobulin levels to see if he has a deficiency. I have also ordered a sputum culture. DISCUSSION: The patient is intubated and no family member is present. According to the information in the computer, the patient was found unresponsive with whiskey bottles all over the floor. He was brought to the hospital and put in intensive care unit. He had a profound acidosis and an alcohol level of 300. The plasma lactate was 28. The CK was 3,737. The patient's CT scan of the head did not show anything acute. He has been started on antibiotics. Also, he was found to be hypothyroid and he has been given IV levothyroxine. The patient also is on steroids. The patient is in renal failure also. Currently, the patient's CBC shows a white count of 8,430, hemoglobin 9.2, and platelet count 28,000. Blood gases show a pH of 7.53, a PO2 of 74, and a pCO2 of 30. Creatinine is 5.6. GFR is 10. AST is 182. Hepatitis panel is nonreactive. As mentioned above, 1 out of 4 blood cultures grew a coagulase-negative staph. This is a contaminant. The chest x-ray shows worsening of the left lower lobe infiltrate and it also shows atelectasis. PAST MEDICAL HISTORY: Positive for hypertension, diabetes mellitus, alcoholism, and hypothyroidism. FAMILY HISTORY: Positive for cancer. The patient's father was murdered. SOCIAL HISTORY: The patient is of at least 20 years. He is also an alcoholic. PAST SURGICAL HISTORY: Negative. ALLERGIES: Patient's chart lists no known drug allergies. HOME MEDICATIONS: Include Lotrel, ciprofloxacin, Proscar, Amaryl, insulin, and Flomax. PHYSICAL EXAMINATION: Vital Signs: Temperature is 98.4 degrees, pulse 66, respirations 22, blood pressure is 123/86. The patient is 6 feet 1 inch tall, weighs 226 pounds. General: This is a chronically ill and acutely ill-appearing, middle-aged male. He does not appear to be in any acute distress. Head, eyes, ears, nose, and throat: He appears to be able to hear my spoken words and see near objects. He has an orogastric tube in place and an orotracheal tube in place. There is no drainage from his nose or ears. The patient has an erythematous facies. Neck: No stiffness. Lungs: Clear to auscultation. Cardiovascular: Heart rate is regular. Abdomen: Soft and not tender. Neurologic: The patient is awake. He did move his legs when I requested him to but when I asked him to move his arms, he did not. Thank you for the consult. cc: Gerardo Arevalo MD
--- NOTE | 2019-12-04 20:26 | PROVIDER PROGRESS NOTE ---
Progress Note Subjective: intubated, but follows commands, nods his head to yes and no questions. Denies any complaints. Objective: temperature 98.4, pulse 66, respirations 22, blood pressure 123/86, 02 sat 95% on 50% FiO2 mechanical ventilation General: chronically ill appearing white male lying in bed and no acute distress. HEENT: Normocephalic a traumatic. Pupils equal and reactive. Conjunctiva pale. Trachea midline. OG tube to oral cavity on low intermittent suction with dark green output. Skin: scattered areas of erythema. More prominent in the face and upper arms today. NecK: supple, 6-8 cm JVD observed. Cardiovascular: S1S2, regular rate and rhythm. No murmurs or gallops noted. Respiratory: lungs clear and equal with good air entry. No crackles or rales noted. Abdomen: slightly firm, nondistended nontender. Bowel sounds hypoactive. : not inspected, Knapp in place with minimal urine output. Extremities: generalized edema to bilateral upper extremities with one plus pitting to his bilateral lower extremities and hips. Neurological: able to follow commands. Labs: WBC 8.43, hemoglobin 9.2, hematocrit 27.9, platelet count 28, sodium 143, potassium 4.7, chloride 104, carbon dioxide 23, are you in 61, creatinine 5.6, albumin 2.9. Intake 1603, output 310. Impression: Acute kidney injury. Likely ischemic acute tubular necrosis related to sepsis. His BUN and creatinine have elevated. He was unable to receive hemodialysis yesterday due to high arterial and venous pressure alarms. Cathflo was given and attempted again without success. Awaiting vas cath and will attempt SLED again today with a 3k bath and 2L ultrafiltration. Atrial fibrillation with RVR. Resolved. He is off the cardizem drip. He remains in sinus rhythm at the moment with heart rate in the 60s. Blood pressure. Stable. He is off neosynephrine. Anemia. Stable. Thrombocytopenia. Zosyn and zyvox stopped. Volume. Slightly expanded. Hemodialysis and albumin in place. Electrolytes. Improved. Metabolic acidosis. Improved. Nutrition. TPN started. Monitor renal panel. Medication review. Solu-Cortef started
--- NOTE | 2019-12-04 22:19 | OPERATIVE NOTE ---
PROCEDURE DATE: 12/04/2019 PREOPERATIVE DIAGNOSIS: Acute kidney injury. POSTOPERATIVE DIAGNOSIS: Acute kidney injury. PROCEDURE: Replacement of right femoral vein Trialysis catheter over a wire. SURGEON: Den Mooney MD. ESTIMATED BLOOD LOSS: Scant. COMPLICATIONS: None apparent. INDICATIONS: The patient has acute kidney injury after recent presentation with multiorgan failure and alcohol toxicity. He continues to require hemodialysis, but his current dialysis catheter is nonfunctional. TECHNIQUE: He was kept supine in his ICU bed. The right groin catheter was prepped with Betadine and surrounded by sterile towels. The stitches holding it to the skin were cut with a knife. A wire was passed down the middle port. The catheter was backed out over the wire. A new Trialysis catheter was passed over the wire into the femoral vein via the Seldinger technique. All ports laura back blood easily and were flushed with saline easily. Sterile caps were applied. It was sutured to the skin with nylon suture and a sterile dressing was applied. There were no apparent complications. cc: Den Mooney MD
[2019-12-05] MEDS: SOLU-CORTEF IV SCH ×4 (02:05→23:28)
[2019-12-05] MEDS: HUMALOG SUBQ SCH ×4 (06:09→20:32)
[2019-12-05 06:52] LABS: ALLEN TEST YES; BLOOD TYPE ARTERIAL; HCO3-(ACT) 25.7 mmoll (20.0-26.0); PCO2(98.6) 31 mmHg (35-45); PO2(98.6) 80 mmHg (60-100); SAMPLE BLOOD; pH(98.6) 7.49 (7.35-7.45)
[2019-12-05 06:53] LABS: MODALITY COOL AEROSOL
--- NOTE | 2019-12-05 07:23 | Diag Imaging Result Doc PS360 ---
EXAM: CHEST-1 VIEW INDICATION: SOB TECHNIQUE: One view COMPARISON: 12/04/2019 FINDINGS: There has been interval extubation and removal of the NG tube. Left basilar and right perihilar infiltrate are approximately stable. No new consolidation is identified. Cardiac silhouette is stable. IMPRESSION: Interval removal of ET tube and NG tube. Stable chest, otherwise. Electronically signed by Aba Murdock 12/05/2019 7:20 AM
[2019-12-05 07:28] LABS: HEMATOCRIT 27.3 % (42.0-52.0); HEMOGLOBIN 9.2 g/dL (14.0-18.0); IMM GRAN# 0.03 X1000 (0.0-0.04); IMM GRAN% 0.5 % (0.0-0.5); LYMPH# 0.43 X1000 (1.2-3.4); LYMPH% 6.5 % (20.5-51.1); MCH 32.2 PG (27-31); MCHC 33.7 g/dL (33-37); MCV 95.5 FL (81-99); MONO# 0.43 X1000 (0.11-0.59); MONO% 6.5 % (1.7-9.3); MPV 11.8 FL (7.4-10.4); NEUT# 5.75 X1000 (1.4-6.5); NEUT% 86.5 % (42.2-75.2); RBC 2.86 XMIL (4.7-6.1); RDW 11.7 % (11.5-14.5); WBC 6.64 X1000 (4.8-10.8)
[2019-12-05 07:30] LABS: PLT 21 X1000 (130-400)
[2019-12-05 07:41] LABS: CALCIUM 8.4 mg/dL (8.8-10.2); CREATININE 4.5 mg/dL (0.7-1.2); POTASSIUM 4.6 mmol/L (3.5-5.1)
[2019-12-05 07:55] LABS: MONO 4 % (1-9); SEGS 88 % (42-75)
[2019-12-05] MEDS: TEFLARO 200 MG in NS 250 ML IV SCH ×2 (09:30→20:36)
[2019-12-05] MEDS: LEVAQUIN 250 MG/D5W 250 MG/50 ML IVPB IV SCH (09:30)
[2019-12-05] MEDS: ALBUMIN 25% IV SCH (09:36)
[2019-12-05] MEDS: M.V.I.-12 10 ML, FOLIC ACID 1 MG, MAGNESIUM SULFATE 1 GM, THIAMINE 100 MG in NS 1,000 ML IV SCH (09:37)
[2019-12-05] MEDS: LANTUS INSULIN SUBQ SCH (09:37)
--- NOTE | 2019-12-05 09:43 | PROGRESS NOTE ---
DATE: 12/05/2019 SUBJECTIVE: The patient has been extubated yesterday and he seems to be doing fine. At this moment his oxygen saturation has been stable on a mask. He is awake, alert, and he is answering my questions, oriented, he is following commands as well. He seems to be really weak, though. I have requested Physical Therapy and Occupational Therapy to evaluate this patient. In the other hand, I will start giving him some ice chips and if he is able to tolerate these, I will start him on a diet today. He is still getting dialysis because of his acute kidney injury with no recovery. His platelet count is 21,000 but there are no signs of bleeding. Hematology Oncology has been consulted already. I will recheck his platelet count later today around 4 p.m. If this is less than 20, I will transfuse him. OBJECTIVE: Vital Signs: Temperature 98.6 degrees, pulse 90, respiratory rate 21, blood pressure 140/87, oxygen saturation 95% on a Venturi mask. HEENT: Head normocephalic. No trauma. Neck: Supple. No JVD. Central trachea. Chest: Some crepitus at the bases mostly. Abdomen: Soft, nontender, nondistended. No hepatosplenomegaly. Positive bowel sounds. Extremities: No clubbing, no cyanosis. Neurological: The patient is awake. He is alert. He is following commands. He does have generalized weakness. LABORATORY: WBC 6.6, hemoglobin 9.2, hematocrit 27.3, platelet count 21,000. Sodium 144, potassium 4.6, chloride 104, bicarbonate 22, BUN 63, creatinine 4.5, glucose 181, calcium 8.4. ASSESSMENT AND PLAN: 1. Septic shock. So far blood cultures are negative. One of them though is coagulase-negative Staphylococcus, which likely is due to contamination. His chest x-ray today showed a left basilar and right perihilar infiltrate that are stable and no new consolidation. He is not on pressors and his white blood cell count is normal. 2. Multifocal lower lobe pneumonia. I will continue with same management for now. Infectious Disease Department on board. White blood cell count normalized. 3. Acute hypoxemic and hypercarbic respiratory failure. The patient has been recently extubated yesterday. He seems to be doing better today. 4. Alcohol use and abuse prior to hospital hospitalization. Patient has been counseled. 5. Thrombocytopenia. His platelet count is low at 21,000, but there are no signs of bleeding. I will repeat the platelet count later this afternoon around 4 p.m. Also we have placed a consult for Hematology Oncology Department. This probably is multifactorial, probably to sepsis, bone marrow suppression due to alcohol, medications. 6. Transient episode of atrial fibrillation with RVR. It is stable at this moment. Continue with same management. 7. Rhabdomyolysis. His CK level was 3337 on 11/29/2019. I will repeat it tomorrow to see how he does. 8. Transaminitis, likely due to shock liver and/or alcohol use. We will monitor for now. 9. Acute kidney injury, probably due to ATN with no recovery. Continue with hemodialysis. 10. Severe lactic acidosis on presentation, improved. 11. Generalized weakness. I have placed a consult for Occupational Therapy and Physical therapy. 12. Nutritional status. I will start this patient on a diet if he tolerates ice chips. 13. Diabetes. This patient's hemoglobin A1c is 7, and it has been elevated before. Back in 2012 it was 10.8. At home it looks like he is on Amaryl and Lantus. Since he is not on a diet at this moment, we will continue with same management. His blood pressure has been stable, so I will start decreasing his on hydrocortisone from 50 q.8 hours to 25 q.8 hours and let us see how he does. cc: Cade Webber MD
--- NOTE | 2019-12-05 13:16 | INFECTIOUS DISEASE PROGRESS NO ---
DATE: 12/05/2019 PRESENT ILLNESS: The patient has bilateral pneumonia. Clinically, the patient is doing much better. The patient's most recent x-ray shows that the infiltrates are not increasing and they are stable currently. The patient also has an immunoglobulin deficiency. His IgG level is 535. MEDICATIONS: The patient is receiving a combination of ceftaroline and Levaquin. OBJECTIVE: Vital Signs: Temperature is 98.8 degrees, pulse 90, respirations 21, blood pressure 140/87. General: This is a chronically ill-appearing, middle-aged male. He is in no acute distress. Head/eyes/ears/nose/throat: He can hear my spoken words and see near objects. He does not have any white coating on his tongue. He does have a slightly erythematous faces. No drainage from the nose or the ears. Neck: No stiffness. Lungs: Clear to auscultation. Cardiovascular: Heart rate is regular. Abdomen: Soft and nontender. Neurologic: The patient is alert. He is able to carry on a coherent conversation. He can move his arms and legs. LAB AND X-RAY STUDIES: Chest x-ray shows stable bilateral infiltrates. The patient's CBC shows a white count of 6640, hemoglobin 9.2, and platelet count 21,000. Blood gases show a pH of 7.49, a PO2 of 80, and a pCO2 of 31. Creatinine is 4.5. GFR is 13. IgA is 63. IgG is 535. Blood cultures are negative. Sputum is growing a gram-negative alfonzo. ASSESSMENT AND PLAN: The patient has pneumonia. The fact that the x-ray has not changed, is actually good because the radiographic study lags behind how the patient is doing clinically which in this case he is doing much better clinically. I discussed with the patient about his immunoglobulin deficiency and he refused to have an infusion of IVIG. COMORBIDITIES: Include alcoholism, diabetes mellitus, hypertension, hypothyroidism and immunoglobulin deficiency. My plan is to continue with ceftaroline and Levaquin pending the results of the patient's sputum culture. cc: Gerardo Arevalo MD
[2019-12-05 16:59] LABS: MPV 10.6 FL (7.4-10.4)
--- NOTE | 2019-12-05 17:43 | NEPHROLOGY PROGRESS NOTE ---
DATE: 12/05/2019 SUBJECTIVE: He is off the ventilator today. He is awake and alert, conversant. He is somewhat paranoid. He feels we kept him restrained and instrumented inappropriately, and that he was always thirsty. Today he denies pain or shortness of breath. He is hungry. OBJECTIVE: Blood pressure 148/88, heart rate 80, respirations 23, temperature 99 degrees. Intake 1.7 L. Output 1.6 L with 175 mL of urine output. Generally no acute distress. Skin is warm and dry. Conjunctivae are pink. Neck veins are not distended. Heart is regular. Lungs are equal. No crackles. Abdomen soft, nontender. Bowel sounds present.Extremities: No edema, clubbing or cyanosis. IMPRESSION AND PLAN: Acute kidney injury. Metabolic acidosis resolved. Euvolemic. Electrolytes in target. He does not desire dialysis "ever again." Certainly, it is medically acceptable to withhold dialysis today and we will observe his response. cc: Anshu Nelson MD
--- NOTE | 2019-12-05 18:48 | HEMO/ONC CONSULTATION ---
DATE: 12/04/2019 ADMITTING PHYSICIAN: Chris Johnson MD REQUESTING PHYSICIAN: Chris Johnson MD. We appreciate this consult. CHIEF COMPLAINT: Thrombocytopenia. HISTORY OF PRESENT ILLNESS: Mr. Contreras is a 64-year-old male who is brought in to [facility] Emergency Department by EMS after they were called by a neighbor. The patient was found down unresponsive with whiskey bottles all over the floor. The patient had no heat in his residence. Initial blood pressure was found to be in the 80s over the 40s with a rectal temperature of 85. The patient was profoundly acidotic with an alcohol level of 300. CK was 3737. The patient was begun on rewarming process. CT of the head was negative for any acute abnormality. The patient was begun on empiric antibiotics. The patient was ultimately intubated, and blood pressure remained low. The patient was placed on vasopressors and admitted to ICU. The patient was thrombocytopenic on admission with a platelet count of 91,000 that has dropped down to 28,000. We are consulted for thrombocytopenia. PAST MEDICAL HISTORY: 1. Hypertension. 2. Diabetes mellitus type 2. 3. Alcohol abuse. SURGICAL HISTORY: None. FAMILY HISTORY: The patient's mother of cancer of unknown type in 1978. SOCIAL HISTORY: The patient is an alcoholic who drinks gin all day long. He does not use illicit drugs. MEDICATIONS ON ADMISSION: 1. Amlodipine. 2. Glipizide. 3. Benazepril. ALLERGIES: The patient has no known drug allergies. REVIEW OF SYSTEMS: Fourteen point review of systems was attempted but is unable to be obtained as the patient is intubated and sedated. PHYSICAL EXAMINATION: General: Mr. Roque is a 64-year-old male lying supine in bed, intubated and sedated. Vital Signs: Temperature 98.4 degrees, blood pressure 142/94, heart rate 87, respirations 24, O2 saturation is 97% on the ventilator. HEENT: Normocephalic, atraumatic. Mucous membranes pale and somewhat dry. Sclerae are anicteric. Extraocular movements intact. Neck: Supple. Lungs: With coarse breath sounds throughout. Cardiovascular: S1, S2 is heard without murmur, rub or gallop. Abdomen: Nondistended, nontender. Bowel sounds positive in all quadrants. No rebound, no guarding noted. Extremities: Without clubbing, cyanosis, or edema. Dermatologic: No rashes, bruises or lesions. Neurologic: The patient is sedated. He awakens to light touch. He has no overt focal deficits. LABORATORY DATA: Hemoglobin 9.2, hematocrit 27.9, white blood cell count 8.43, platelets 28,000, sodium 143, potassium 4.7, chloride 104, CO2 is 23, BUN 61, creatinine 5.6 and glucose is 152. Bilirubin 1.06, alkaline phosphatase 61, AST 182, ALT 107. ASSESSMENT AND PLAN: 1. Thrombocytopenia. The patient has been on Zyvox and Zosyn. Thrombocytopenia is likely multifactorial in a patient with sepsis and a history of ETOH abuse. We will initiate a workup at this time. Would transfuse platelets if the patient's platelet count drops below 10,000 or in the setting of active bleeding. 2. Likely septic shock, currently on antibiotics. The patient is off of vasopressors at this time with a stable blood pressure. 3. Multifocal pneumonia on ceftaroline and Levaquin. 4. Acute respiratory failure on the ventilator at this time. Pulmonology is following. 5. Alcohol abuse, known. The patient is on withdrawal precautions. 6. Transient atrial fibrillation with rapid ventricular response. No further episodes. 7. Rhabdomyolysis, stable. We will follow along with you and make further recommendations pending outcomes. The above reflects the history, exam, assessment and plan of Dr. Fuchs. Dictated by DILMA Del Cid for Lalito Fuchs MD cc: DILMA Del Cid MD
--- NOTE | 2019-12-05 19:04 | PULMONOLOGY PROGRESS NOTE ---
DATE: 12/05/2019 SUBJECTIVE: The patient is awake, alert and conversant. He reports he uses alcohol to prevent heart disease and to help control his blood sugars. He does not believe he is an alcoholic. OBJECTIVE: The patient has been afebrile for the last 24 hours. Blood pressure 136/84, heart rate 79, respiratory rate 27, oxygen saturation 93% on 4 L per nasal cannula. HEENT: Pupils are equal and reactive. Oropharynx appears clear. Neck is supple. Chest reveals rhonchi bilaterally. Cardiac exam: S1, S2. Abdomen is soft. Extremities are without edema. LABORATORY DATA: White blood count 6.64, hemoglobin 9.2, platelet count 21,000. Arterial blood gas reveals a pH of 7.49, pCO2 of 31, pO2 of 80. IMPRESSION: A 64-year-old with: 1. Bilateral pneumonia. 2. Acute hypoxemic respiratory failure. 3. Immunoglobulin deficiency. 4. Alcohol abuse. 5. Thrombocytopenia. PLAN: 1. Continue antibiotics per Infectious Disease. 2. Continue bronchodilators. 3. Wean oxygen as tolerated. 4. Caution about the need to discontinue alcohol. cc: Saqib Ferrer MD
[2019-12-05] MEDS ORDERED: CALMOSEPTINE OINTMENT TOP PRN (23:25)
[2019-12-06] MEDS: HUMALOG SUBQ SCH ×4 (06:00→21:25)
[2019-12-06 07:13] LABS: ALB/GLOB RATIO 2.2; ALBUMIN 3.3 g/dL (3.5-5.0); DIRECT BILIRUBIN 0.3 mg/dL (0.00-0.20); TOTAL BILIRUBIN 0.9 mg/dL (0.20-1.00); TOTAL PROTEIN 4.8 g/dL (6.3-8.3)
[2019-12-06 07:22] LABS: CALCIUM 8.5 mg/dL (8.8-10.2); CREATININE 6.1 mg/dL (0.7-1.2); EOS# 0.03 X1000 (0.0-0.7); EOS% 0.6 % (0.0-10.0); HEMATOCRIT 24.1 % (42.0-52.0); HEMOGLOBIN 8.3 g/dL (14.0-18.0); IMM GRAN# 0.02 X1000 (0.0-0.04); IMM GRAN% 0.4 % (0.0-0.5); LYMPH# 0.76 X1000 (1.2-3.4); LYMPH% 14.7 % (20.5-51.1); MCH 32.3 PG (27-31); MCHC 34.4 g/dL (33-37); MCV 93.8 FL (81-99); MONO# 0.78 X1000 (0.11-0.59); MONO% 15.1 % (1.7-9.3); MPV 11.4 FL (7.4-10.4); NEUT# 3.59 X1000 (1.4-6.5); NEUT% 69.2 % (42.2-75.2); PLT 26 X1000 (130-400); POTASSIUM 4.4 mmol/L (3.5-5.1); RBC 2.57 XMIL (4.7-6.1); RDW 11.5 % (11.5-14.5); WBC 5.18 X1000 (4.8-10.8)
--- NOTE | 2019-12-06 07:45 | Diag Imaging Result Doc PS360 ---
EXAM: CHEST-1 VIEW HISTORY: SOB TECHNIQUE: Single view COMPARISON: 12/05/2019 FINDINGS: The lungs are well expanded. The heart is mildly prominent. There is vascular distention. No pleural effusions identified. The right hemidiaphragm is elevated. IMPRESSION: Pulmonary edema Electronically signed by Shan De 12/06/2019 7:43 AM
[2019-12-06 07:48] LABS: CK INDEX 0.3 (0.0-2.5); CK-MB 3.15 ng/mL (0.0-5.0)
--- NOTE | 2019-12-06 08:28 | PROGRESS NOTE ---
DATE: 12/06/2019 SUBJECTIVE: The patient is completely awake, alert, and oriented x3. He is not having signs or symptoms of withdrawal from alcohol, he has been refusing dialysis, antibiotics, and also he refused IVIG that was offered by the Infectious Disease doctor. Blood pressure has been stable. I will continue decreasing his steroids and I will do that slowly. I had a really large conversation with this patient about treatment and I we talked about why he has been refusing his treatment inhouse. It is really hard to understand why he is refusing treatment. He stated that the medications are dropping his platelet count, and now he wants dialysis because he found out that he has too much fluid inside his body. He does not know why he is refusing IVIG, I think believes he does not need. OBJECTIVE: Vital Signs: Temperature 98.3 degrees, pulse 68, respiratory rate 17, blood pressure 143/90, oxygen saturation 94% on 4 L of nasal cannula. HEENT: Head normocephalic, no trauma. PERRLA. Neck: Supple. No JVD. No masses. Central trachea. Chest: Crepitus at the bases mostly. Abdomen: Soft, nontender, nondistended. No hepatosplenomegaly. Positive bowel sounds. Extremities: Some edema, no clubbing, no cyanosis. Neurological examination: The patient is awake, alert. He is oriented x3. He is following commands. He does have some generalized weakness. LABORATORY: WBC 5.1, hemoglobin 8.3, hematocrit 24.1, platelet 26,000. Sodium 140, potassium 4.4, chloride 100, bicarbonate 23, BUN 96, creatinine 6.1, glucose 170, calcium 8.5, AST 78, ALT 74, alkaline phosphatase 46. CK level 1172, albumin 3.3. ASSESSMENT AND PLAN: 1. Septic shock. So far, cultures are negative. Chest x-ray showed pulmonary edema. He has been refusing antibiotics. He is completely awake, alert, and he is oriented. He is not on vasopressors. 2. Multifocal lower lobe pneumonia. We will continue with same management for now. Infectious Disease Department on board. White blood cell count basically normalized, but he has been refusing antibiotics. 3. Acute hypoxemic and hypercarbic respiratory failure, continue with oxygen supplementation. He has been recently extubated 2 days ago. He seems to be doing better. 4. Alcohol use and abuse prior to hospitalization. The patient has been counseled. 5. Thrombocytopenia, likely this is multifactorial, platelet count increased from 21,000 to 26,000, no signs of bleeding. Hematology/Oncology already evaluated this patient. We will continue with the same management. 6. Transient episode of atrial fibrillation with rapid ventricular response, stable at this moment. Continue with the same treatment. 7. Rhabdomyolysis. The CK level dropped from 3337 to 1172. 8. Acute kidney injury probably acute tubular necrosis, no complete recovery so far. He has been refusing dialysis, but now he wants dialysis because he has fluid overload. 9. Severe lactic acidosis on presentation, better. 10. Generalized weakness. Continue physical therapy and occupational therapy. 11. Nutritional status. I will advance the diet from a liquid diet to a renal diet. 12. Diabetes with a hemoglobin A1c of 10, it has been elevated before, back in 2013 the hemoglobin A1c was 10.8, it looks like he is on Amaryl and Lantus, I will continue with same management and just advance his diet. 13. Nutritional status. I will advance the diet to a renal diet. Like I mentioned before this patient has been refusing treatment including dialysis, antibiotics and IVIG, we had a long discussion about this and now he is willing to get dialysis. cc: Cade Webber MD
[2019-12-06] MEDS: TEFLARO 200 MG in NS 250 ML IV SCH ×2 (08:38→22:16)
[2019-12-06] MEDS: LANTUS INSULIN SUBQ SCH (08:38)
[2019-12-06] MEDS: LEVAQUIN 250 MG/D5W 250 MG/50 ML IVPB IV SCH (08:38)
[2019-12-06] MEDS: VITAMIN B-1 PO SCH (08:39)
[2019-12-06] MEDS: SOLU-CORTEF IV SCH ×2 (12:13→22:17)
--- NOTE | 2019-12-06 14:07 | PULMONOLOGY PROGRESS NOTE ---
DATE: 12/06/2019 SUBJECTIVE: The patient is awake, alert, and conversant. He is not happy with his current diet, but has no other complaints. OBJECTIVE: Vital Signs: The patient has been afebrile for the last 24 hours. Blood pressure 150/90, heart rate 76, respiratory rate 18, oxygen saturation 96%. HEENT: Pupils are equal and reactive. Oropharynx appears clear. Neck: Neck is supple. Chest: Reveals faint crackles in the lung bases. Cardiac exam: S1, S2. Abdomen: Abdomen is soft. Extremities: Extremities are without edema. LABORATORIES/X-RAYS: Chest x-ray reveals mild elevation of the right hemidiaphragm with vascular congestion. White blood count 5.18, hemoglobin 8.3 platelet count 26,000. Sodium 140, potassium 4.4, chloride 100, bicarbonate 23, BUN 96, creatinine 6.1. IMPRESSION: A 64-year-old with: 1. Acute hypoxemic respiratory failure. 2. Alcohol abuse. 3. Immunoglobulin deficiency. 4. Thrombocytopenia. 5. Acute hypoxemic respiratory failure. 6. Acute renal failure. DISCUSSION: A 64-year-old with problems outlined above. Clinically, he continues to improve. His urine output remains low, but it has improved over the last 2 days. PLAN: 1. Continue current antibiotic regimen. 2. Continue bronchial hygiene. 3. Wean oxygen as tolerated. 4. Encourage patient to discontinue alcohol. 5. Anticipate transfer to the floor today. cc: Saqib Ferrer MD
[2019-12-06] MEDS ORDERED: NS 2,000 ML MISC PRN (14:30)
--- NOTE | 2019-12-06 14:34 | NEPHROLOGY PROGRESS NOTE ---
DATE: 12/06/2019 SUBJECTIVE: He is awake, alert, interactive. No shortness of breath, nausea, or vomiting. OBJECTIVE: Vital Signs: Blood pressure 150/79, heart rate 71, respirations 16, afebrile. Intake 3.2 L. Output 500 mL. General: No acute distress. Skin: Warm and dry. Conjunctivae are pink. Neck: Neck veins are distended. Heart: Regular. No rubs. Lungs: Equal. No crackles. Abdomen: Soft, nontender. Bowel sounds are present. Extremities: With 2+ edema. No clubbing or cyanosis. IMPRESSION: Acute kidney injury. Urine output is acceptable but he still appears volume overloaded. We will dialyze today. cc: Anshu Nelson MD
[2019-12-06 16:16] LABS: MPV 11.2 FL (7.4-10.4)
[2019-12-07] MEDS: HUMALOG SUBQ SCH ×4 (06:24→21:32)
--- NOTE | 2019-12-07 07:11 | Diag Imaging Result Doc PS360 ---
EXAM: CHEST-1 VIEW 12/07/2019 HISTORY: SOB TECHNIQUE: AP portable at 0559 COMMENT: There has been no significant change since the previous study of 12/06/2019. IMPRESSION: Stable chest. Electronically signed by Phillip Carter 12/07/2019 7:08 AM
[2019-12-07 08:08] LABS: EOS# 0.14 X1000 (0.0-0.7); EOS% 2.8 % (0.0-10.0); LYMPH# 0.96 X1000 (1.2-3.4); LYMPH% 19.2 % (20.5-51.1); MCH 31.9 PG (27-31); MCHC 34.6 g/dL (33-37); MCV 92.2 FL (81-99); MONO# 1.04 X1000 (0.11-0.59); MONO% 20.8 % (1.7-9.3); MPV 10.9 FL (7.4-10.4); NEUT# 2.86 X1000 (1.4-6.5); NEUT% 57.2 % (42.2-75.2); PLT 48 X1000 (130-400); RBC 2.82 XMIL (4.7-6.1); RDW 11.3 % (11.5-14.5)
[2019-12-07] MEDS: LEVAQUIN 250 MG/D5W 250 MG/50 ML IVPB IV SCH (08:42)
[2019-12-07] MEDS: VITAMIN B-1 PO SCH (08:42)
[2019-12-07] MEDS: LANTUS INSULIN SUBQ SCH (08:42)
[2019-12-07 08:52] LABS: ALB/GLOB RATIO 1.8; ALBUMIN 3.2 g/dL (3.5-5.0); CALCIUM 8.3 mg/dL (8.8-10.2); CREATININE 6.3 mg/dL (0.7-1.2); PHOSPHORUS 5.9 mg/dL (2.7-4.5); TOTAL BILIRUBIN 0.91 mg/dL (0.20-1.00)
[2019-12-07 09:20] LABS: BANDS 2 % (0-1); LYMPHS 10 % (21-51); MONO 20 % (1-9); SEGS 64 % (42-75)
[2019-12-07] MEDS: TEFLARO 200 MG in NS 250 ML IV SCH ×2 (09:50→21:36)
[2019-12-07] MEDS: SOLU-CORTEF IV SCH ×2 (11:02→22:50)
--- NOTE | 2019-12-07 14:15 | PROGRESS NOTE ---
DATE: 12/07/2019 SUBJECTIVE: This patient is feeling better today. He is not having signs or symptoms of alcohol withdrawal. He had dialysis yesterday, and more than 3 L of fluid has been removed. The platelet count is trending up. We had a large conversation about alcohol use and abuse. Will continue to monitor. OBJECTIVE: Vital Signs: Temperature 98.6 degrees, pulse 65, respiratory rate 16, blood pressure 130/77, oxygen saturation 98 on 3 L of nasal cannula. HEENT: Head normocephalic. No trauma. PERRLA. Neck: Supple. No JVD. No masses. Central trachea. Chest: Crepitus at the bases mostly. Abdomen: Soft, nontender, nondistended. No hepatosplenomegaly. Positive bowel sounds. Extremities: There is 1+ edema. No clubbing or cyanosis. Neurological: The patient is awake, alert. He is oriented x3. No focal deficits. LABORATORY DATA: WBC 5, hemoglobin 9, hematocrit 26, platelets 48,000. Sodium 136, potassium chloride 96, bicarbonate 22, BUN 95, creatinine 6.3, glucose 162, calcium 8.3. Phosphorus 5.9. AST 51, ALT 67, alkaline phosphatase 49, albumin 3.2. ASSESSMENT AND PLAN: 1. Septic shock. So far, cultures are negative. Likely, this is due to pneumonia. Will continue with the same management. Continue antibiotics. Infectious Disease Department on board. 2. Multifocal lower lobe pneumonia. Continue with the same treatment. 3. Acute hypoxemic and hypercarbic respiratory failure. Continue oxygen supplementation. He has been extubated 3 days ago. He seems to be doing better. 4. Alcohol use and abuse prior to hospitalization. This patient has been advised against alcohol use. I will continue with daily cessation education today. We had a large conversation about alcohol and its consequences. 5. Thrombocytopenia. This is getting better. Likely multifactorial. 6. Transient episode of atrial fibrillation with rapid ventricular response, stable at this moment. 7. Elevated CK level, probably due to rhabdomyolysis, getting better. 8. Acute kidney injury, likely due to acute tubular necrosis with no complete recovery so far. He has been dialyzed yesterday. We will monitor. Nephrology Department on board. 9. Severe lactic acidosis on presentation, better. 10. Previous history of pancreatitis, likely due to alcohol use. 11. Generalized weakness. Continue with physical therapy and occupational therapy. 12. Nutritional status. Diet has been advanced, and he is tolerating his diet. 13. Diabetes with a hemoglobin A1c of 7, but it has been elevated before. Back in 2012, the hemoglobin A1c was 10.8. He takes Amaryl and Lantus at home. I will continue with the same management for now. 14. Nutritional status. Will just advanced the diet. Will monitor. 15. Elevated liver function tests, likely a combination of shock liver and alcohol use. cc: Cade Webber MD
--- NOTE | 2019-12-07 18:14 | PULMONOLOGY PROGRESS NOTE ---
DATE: 12/07/2019 SUBJECTIVE: The patient is awake, alert, and conversant. He reports his breathing is doing well. He denies cough or sputum production. OBJECTIVE: Vital Signs: The patient has been afebrile for the last 24 hours. Blood pressure 130/77, heart rate 65, respiratory rate 16, oxygen saturation 98% on 3 L per nasal cannula. HEENT: Pupils are equal and reactive. Oropharynx appears clear. Neck: Is supple. Chest: Reveals crackles at the right base. Cardiac exam: S1, S2. Abdomen: Is slightly obese and soft. Extremities: Without edema. LABORATORIES: White blood count 5.0, hemoglobin 9.0, platelet count 48,000. Sodium 136, potassium 4.0, chloride 96, bicarbonate 22, BUN 95, creatinine 6.3. IMPRESSION: A 64-year-old with 1. Acute hypoxemic respiratory failure. 2. Alcohol abuse. 3. Thrombocytopenia with clinical improvement. 4. Immunoglobulin deficiency. 5. Acute renal failure. DISCUSSION: A 64-year-old with problems outlined above. He continues to improve. His oxygen requirements are slowly decreasing. PLAN: 1. Continue to wean oxygen as tolerated. 2. Continue current antibiotic regimen. 3. Encourage patient to discontinue all alcohol use. 4. We will obtain a two-view chest x-ray tomorrow. cc: Saqib Ferrer MD
[2019-12-08] MEDS: HUMALOG SUBQ SCH ×3 (06:27→22:10)
[2019-12-08 09:16] LABS: BASO# 0.01 X1000 (0.0-0.2); BASO% 0.2 % (0.0-0.8); EOS# 0.27 X1000 (0.0-0.7); EOS% 4.1 % (0.0-10.0); HEMATOCRIT 24.5 % (42.0-52.0); HEMOGLOBIN 8.4 g/dL (14.0-18.0); LYMPH# 1.07 X1000 (1.2-3.4); LYMPH% 16.1 % (20.5-51.1); MCH 31.5 PG (27-31); MCHC 34.3 g/dL (33-37); MCV 91.8 FL (81-99); MONO# 1.08 X1000 (0.11-0.59); MONO% 16.3 % (1.7-9.3); MPV 10.5 FL (7.4-10.4); NEUT% 63.3 % (42.2-75.2); PLT 83 X1000 (130-400); RBC 2.67 XMIL (4.7-6.1); RDW 11.3 % (11.5-14.5); WBC 6.63 X1000 (4.8-10.8)
[2019-12-08 09:41] LABS: CALCIUM 8.3 mg/dL (8.8-10.2); CREATININE 7.9 mg/dL (0.7-1.2); POTASSIUM 4.1 mmol/L (3.5-5.1)
[2019-12-08] MEDS: TEFLARO 200 MG in NS 250 ML IV SCH ×2 (10:08→22:10)
[2019-12-08] MEDS: LANTUS INSULIN SUBQ SCH (10:08)
[2019-12-08] MEDS: VITAMIN B-1 PO SCH (10:08)
[2019-12-08] MEDS: LEVAQUIN 250 MG/D5W 250 MG/50 ML IVPB IV SCH (10:08)
--- NOTE | 2019-12-08 10:28 | Diag Imaging Result Doc PS360 ---
EXAM: CHEST-2 VIEWS HISTORY: abnormal exam TECHNIQUE: Two views COMPARISON: 12/07/2019 FINDINGS: Improved inspiratory effort. There are tiny pleural effusions. Heart is mildly prominent. No pulmonary edema. There are increased interstitial markings in the mid lower right lung. These are slightly more prominent. IMPRESSION: Atelectasis versus infiltrates in the lower right lung with tiny bilateral pleural effusions Electronically signed by Shan De 12/08/2019 10:25 AM
--- NOTE | 2019-12-08 16:07 | PROGRESS NOTE ---
DATE: 12/08/2019 SUBJECTIVE: The patient has been refusing treatment, yesterday he did not get some treatment, mostly I think during the night. He refused the Teflaro and the steroids. He has been refusing the IVIG treatment as well that has been offered by the Infectious Disease doctor and also it has been offered by me. He is concerned about some dried blood that he has in his mustache which has been there for a few days. He wants to stop the antibiotics because he believes this is the cause of the thrombocytopenia, which is getting better actually. On the other hand, he requested to remove the Knapp catheter and I will. He stated that he cannot pee enough because he does not know how to pee through the catheter. I explained to him for at least 30 minutes that he does not need to learn how to pee through the catheter. The catheter will drain everything that he has in his bladder. The problem is that he is not making enough urine and that is why he cannot see enough urine in his bag. Even though I explained to him how the Knapp catheter works, that also has been explained really good by his nurse today, he still wants the catheter out. I talked to him about not refusing treatment and he still believes that he is controlling his blood sugar with alcohol, especially gin. I will continue to monitor. I will continue treating this patient, but there is a possibility of getting worse if he does not get the treatment right. OBJECTIVE: Vital signs: Temperature 98 degrees, pulse 72, respiratory rate 14, blood pressure 139/82, oxygen saturation 98 on 3 L of nasal cannula. HEENT: Head normocephalic. No trauma. PERRLA. Neck: Supple. No JVD. No masses. Central trachea. Chest: Crepitus at the bases mostly. Abdomen: Soft, nontender, nondistended. No hepatosplenomegaly. Positive bowel sounds. Extremities: Trace edema. No clubbing. No cyanosis. Neurological: Patient is awake. He is alert. He is oriented. No focal deficits. LABORATORY: WBC 6.6, hemoglobin 8.4, hematocrit 24.5, platelets 83,000. Sodium 137, potassium 4.1, chloride 96, bicarbonate 20, BUN 124, creatinine 7.9, glucose 125, calcium 8.3. ASSESSMENT AND PLAN: 1. Septic shock. Cultures are negative. Likely due to pneumonia. Continue with the same management. Continue with antibiotics. Infectious Disease Department on board. I have stopped the steroids. He has been refusing them anyway. I have been decreasing the amount slowly on a daily basis. He has been refusing on and off antibiotics. 2. Multifocal pneumonia. Continue with same management, as per #1. 3. Acute hypoxemic and hypercarbic respiratory failure. Continue oxygen supplementation. He has been extubated 4 days ago. He seems to be doing better. 4. Alcohol use and abuse prior to hospitalization. This patient believes that he is controlling his blood sugar with alcohol. We had a large conversation about alcohol and its consequences. 5. Thrombocytopenia. This is getting better. 6. Transient episode of atrial fibrillation with rapid ventricular response, stable. 7. Elevated CK level, probably due to rhabdomyolysis. We will monitor. 8. Acute kidney injury with no recovery so far, likely due to acute tubular necrosis. Continue with dialysis as scheduled. He has been refusing dialysis before. 9. Severe lactic acidosis on presentation, better. 10. Previous history of pancreatitis. Likely due to alcohol use, but as per the patient, his histories of pancreatitis is due to infection and not alcohol. 11. Generalized weakness. Continue physical therapy and occupational therapy. 12. Nutritional status. Continue with his diet. 13. Diabetes with a hemoglobin A1c of 7. The hemoglobin A1c has been elevated before. Back in 2013 was around 10.8. He is on Amaryl and Lantus at home, but I am not sure if he is taking it. 14. Elevated liver function tests. Likely a combination of shock liver and alcohol abuse. cc: Cade Webber MD
--- NOTE | 2019-12-08 18:49 | INFECTIOUS DISEASE PROGRESS NO ---
DATE: 12/08/2019 HISTORY OF PRESENT ILLNESS: The patient now has gone from bilateral pneumonia to a pneumonia in the right lower part of the lung. Today, I discovered that the patient has oral candidiasis. MEDICATIONS: The patient is on ceftaroline and Levaquin. I have switched Levaquin from IV to p.o. PHYSICAL EXAMINATION: Vital Signs: Temperature 98 degrees, pulse 72, respirations 14, and blood pressure is 139/82. General: This is a chronically ill-appearing middle-aged male. He is in no acute distress. Head/eyes/ears/nose/throat: He can hear my spoken words and see near objects. He did have some white coating on his tongue today. His face is less erythematous. Neck: No pain with movement. Lungs: Clear to auscultation. Cardiovascular: Heart rate is regular. Abdomen: Soft and nontender. Neurologic: The patient is alert he is able to ambulate. There is no tremor. LABORATORY AND X-RAY: Chest x-ray shows right basilar pneumonia/atelectasis. The patient's CBC for today shows a white count of 6630, hemoglobin 8.4, and platelet count 83,000. The patient's creatinine is 7.9. GFR is 7. ASSESSMENT AND PLAN: The patient has right basilar pneumonia versus atelectasis. My plan is to continue ceftaroline and change the Levaquin from IV to p.o. Earlier today, the patient refused his ceftaroline. The patient also has oral candidiasis. My plan is to start the patient on nystatin swish and swallow. COMORBIDITIES: Alcoholism, diabetes mellitus, hypertension, hypothyroidism, and immunoglobulin deficiency. cc: Gerardo Arevalo MD
--- NOTE | 2019-12-08 19:13 | PROVIDER PROGRESS NOTE ---
Progress Note Subjective: he denies any complaints. He says he is feeling better. Objective: temperature 98.0, pulse 72, respirations 14, blood pressure 139/82, 02 sat 98% on 3 L nasal cannula. General: white male lying in bed and no acute distress. HEENT: Normocephalic atraumatic. Pupils equal and reactive. Conjunctiva pale. Trachea midline. Skin: scattered areas of erythema. NecK: supple, 6 cm JVD observed. Cardiovascular: S1S2, regular rate and rhythm. No murmurs or gallops noted. Respiratory: lungs clear and equal with good air entry. No crackles or rales noted. Abdomen: soft, nondistended nontender. Bowel sounds active. : not inspected, Knapp in place with red/orange urine output. Extremities: Trace edema to the bilateral lower extremity and hip. Neurological: alert and oriented to person, place, and time. Labs: WBC 6.63, hemoglobin 8.4, hematocrit 24.5, platelet count 83, sodium 137, potassium 4.1, chloride 96, carbon dioxide 20, BUN 124, creatinine 7.9, intake 300, output 100. Impression: Acute kidney injury. Likely ischemic acute tubular necrosis related to sepsis. His BUN and creatinine have elevated. He had hemodialysis Sunday with an almost 4 L ultrafiltration. We will plan to dialyze him tomorrow. Blood pressure. Stable. Anemia. Stable. Volume. Slightly expanded. He will receive hemodialysis tomorrow. Electrolytes. Stable. Acid base balance. Likely kidney related. Improved. Nutrition. Adequate Medication review. No changes.
[2019-12-08] MEDS ORDERED: HYDROGEN PEROXIDE SOLUTION TOP ONE (19:39)
[2019-12-08] MEDS: MYCOSTATIN SUSP PO SCH ×2 (21:15→22:10)
[2019-12-09] MEDS ORDERED: HEPARIN IV PRN (06:12)
[2019-12-09] MEDS ORDERED: TIGHT: 0.2 ML/HR FOR DIALYSIS MISC PRN (06:12)
[2019-12-09] MEDS ORDERED: NS 2,000 ML MISC PRN (06:12)
[2019-12-09] MEDS: HUMALOG SUBQ SCH ×5 (06:47→20:01)
--- NOTE | 2019-12-09 06:59 | PULMONOLOGY PROGRESS NOTE ---
DATE: 12/08/2019 SUBJECTIVE: The patient is awake, alert and conversant. He reports he feels better now that he has restarted his keto diet. OBJECTIVE: Vital signs: The patient has been afebrile for the last 24 hours. Blood pressure 139/82, heart rate 72, respiratory rate 14, oxygen 98% on nasal cannula. HEENT: Pupils are equal and reactive. Oropharynx appears clear. Neck is supple. Chest reveals crackles at the lung bases. Cardiac exam: S1, S2. Abdomen is soft. Extremities reveal trace to 1+ peripheral edema. LABORATORY DATA: Chest x-ray reveals minimal infiltrates in the lung bases with small effusions. Microbiology reveals no new data. White blood count 6.6, hemoglobin 8.4, platelet count 83,000. Sodium 137, potassium 4.1, chloride 96, bicarbonate 20, BUN 124, creatinine 7.9. IMPRESSION: A 64-year-old with: 1. Acute hypoxemic respiratory failure. 2. Bibasilar pneumonia. 3. Alcohol abuse. 4. Thrombocytopenia with continued improvement. 5. Acute renal failure. 6. [id number]-iccfphko immunoglobulin deficiency. PLAN: 1. Continue bronchial hygiene. 2. Continue antibiotics per Infectious Disease. 3. Wean oxygen as tolerated. 4. Encourage patient to discontinue alcohol which is an immunosuppressant. cc: Saqib Ferrer MD
--- NOTE | 2019-12-09 08:53 | PROGRESS NOTE ---
DATE: 12/09/2019 SUBJECTIVE: The patient has been refusing treatment on and off. Today, this patient will be scheduled to get dialysis per nephrology department note. He seems to be feeling better. We will continue with the same management for now. OBJECTIVE: Vital Signs: Temperature 98.7 degrees, pulse 70, respiratory rate 14, blood pressure 136/71, oxygen saturation 100% on room air. HEENT: Head normocephalic. No trauma. PERRLA: Neck: Supple. No JVD. No masses. Central trachea. Chest: Crepitus at the bases. Abdomen: Soft, nontender, nondistended. No hepatosplenomegaly. Positive bowel sounds. Extremities: There is 1+ lower extremity edema. No clubbing. No cyanosis. Neurological Examination: The patient is awake and alert. He is oriented. No focal deficits. Laboratory: Pending lab work at this moment. ASSESSMENT AND PLAN: 1. Septic shock. Cultures are negative. Resolved. Likely due to pneumonia. Continue with the same management. Continue with antibiotics. Infectious disease department on board. Steroids have been stopped. He was refusing treatment with steroids anyway. 2. Multifocal pneumonia. Continue with the same management by infectious disease department. 3. Acute hypoxemic and hypercarbic respiratory failure. The patient was extubated a few days ago. He seems to be improving. He seems to be doing a whole lot better. 4. Thrombocytopenia. This is getting better per lab work from yesterday, pending results today. 5. Alcohol use and abuse prior to hospitalization. This patient believes that he is controlling his blood sugar with alcohol. We had a large conversation about this, about alcohol and its consequences. 6. Transient episode of atrial fibrillation with rapid ventricular response, stable. 7. Elevated CK level, probably due to rhabdomyolysis upon admission. We will monitor. 8. Acute kidney injury with no recovery so far, likely due to acute tubular necrosis. Continue with dialysis. Likely, he will get dialysis today. 9. Severe lactic acidosis on presentation, better. 10. Previous history of pancreatitis, likely due to alcohol use but, as per the patient, this was related to multiple infections and not alcohol. 11. Generalized weakness. Continue physical therapy and occupational therapy. 12. Nutritional status. Continue with his diet. He is following a keto diet. 13. Diabetes with a hemoglobin A1c of 7. His hemoglobin A1c has been elevated before. Back in 2012, it was around 10.8. At home, he is on Amaryl and Lantus but I am not sure if he is taking the oral treatment. 14. Elevated liver function tests, likely a combination of shock liver and alcohol use. cc: Cade Webber MD
[2019-12-09] MEDS ORDERED: LEVAQUIN PO SCH (09:00)
[2019-12-09 09:01] LABS: EOS# 0.31 X1000 (0.0-0.7); EOS% 4.1 % (0.0-10.0); HEMATOCRIT 24.6 % (42.0-52.0); HEMOGLOBIN 8.5 g/dL (14.0-18.0); IMM GRAN# 0.02 X1000 (0.0-0.04); IMM GRAN% 0.3 % (0.0-0.5); LYMPH# 0.62 X1000 (1.2-3.4); LYMPH% 8.1 % (20.5-51.1); MCH 31.7 PG (27-31); MCHC 34.6 g/dL (33-37); MCV 91.8 FL (81-99); MONO# 0.92 X1000 (0.11-0.59); MONO% 12.1 % (1.7-9.3); MPV 10.7 FL (7.4-10.4); NEUT# 5.74 X1000 (1.4-6.5); NEUT% 75.4 % (42.2-75.2); PLT 119 X1000 (130-400); RBC 2.68 XMIL (4.7-6.1); RDW 11.6 % (11.5-14.5); WBC 7.61 X1000 (4.8-10.8)
[2019-12-09 09:56] LABS: CALCIUM 8.3 mg/dL (8.8-10.2); POTASSIUM 4.3 mmol/L (3.5-5.1)
--- NOTE | 2019-12-09 13:15 | PROVIDER PROGRESS NOTE ---
Progress Note Pulmonary Additional note: Will see as needed. Thanks.
[2019-12-09] MEDS: MYCOSTATIN SUSP PO SCH ×5 (13:28→22:24)
[2019-12-09] MEDS: VITAMIN B-1 PO SCH (15:35)
[2019-12-09] MEDS: LANTUS INSULIN SUBQ SCH (15:36)
[2019-12-09] MEDS: TEFLARO 200 MG in NS 250 ML IV SCH (15:36)
--- NOTE | 2019-12-09 17:57 | PROVIDER PROGRESS NOTE ---
Progress Note Subjective: he voices not wanting to go to dialysis until his BUN and creatinine have resulted for the day. He says he has had excellent urine output since his Knapp was deceived yesterday. He was educated on BUN and Creatinine and kidney function. Objective: temperature 98.7, pulse 70, respirations 14, blood pressure 136/71, O2 sat 100% on room air. General: white male lying in bed and no acute distress. HEENT: Normocephalic atraumatic. Pupils equal and reactive. Conjunctiva pale. Trachea midline. Skin: scattered areas of erythema. NecK: supple, 6 cm JVD observed. Cardiovascular: S1S2, regular rate and rhythm. Soft systolic murmur. No gallop noted. Respiratory: lungs clear and equal with good air entry. No crackles or rales not ed. Abdomen: soft, nondistended nontender. Bowel sounds active. : not inspected Extremities: 1+ edema to BLE and BUE Neurological: alert and oriented to person, place, and time. Labs: WBC 7.61, hemoglobin 8.5, hematocrit 24.6, platelet count 119, sodium 133, potassium 4.3, chloride 92, carbon dioxide 19, BUN 138, creatinine 9.0. Intake 250, output 1200. Impression: Acute kidney injury. Likely ischemic tubular necrosis related to sepsis. His BUN and creatinine remain elevated. He will have hemodialysis today. Blood pressure. Stable. Anemia. Stable. Volume. Slightly expanded. We will order hemodialysis for today and encourage to go. Electrolytes. Stable. Acid base balance. Likely kidney related. Improved. Nutrition. Adequate Medication review. No changes. He will need a tunneled catheter to facilitate discharge.
--- NOTE | 2019-12-09 18:26 | INFECTIOUS DISEASE PROGRESS NO ---
DATE: 12/09/2019 PRESENT ILLNESS: The patient has a right lower lobe pneumonia and also oral candidiasis. MEDICATIONS: This is the 6th day of treatment with a combination of ceftaroline and Levaquin and the and the patient also is on nystatin swish and swallow for his oral candidiasis. PHYSICAL EXAMINATION: Vital Signs: Temperature 98.7 degrees, pulse 70, respirations 14, blood pressure 136/71. General: This is an ill-appearing, middle-aged male. He is in no acute distress. Head/eyes/ears/nose/throat: He can hear my spoken words and see near objects. He had less white coating of his tongue today. Neck: No pain with movement. Lungs: Clear to auscultation. Cardiovascular: Regular heart rate. Abdomen: Soft and nontender. The patient in his right groin has a dialysis catheter in place. The site is not bleeding or purulent. Neurologic: Patient is alert. He talks in a coherent fashion. He can move his extremities. LAB AND X-RAY: Chest x-ray shows right lower lobe infiltrate/atelectasis. Creatinine is 9. GFR is 6. a CBC shows a white count of 7610, hemoglobin 8.5, and platelet count 119,000. ASSESSMENT AND PLAN: Patient has pneumonia. My plan is to continue with ceftaroline and Levaquin. As regarding the patient's oral candidiasis, I plan to continue with nystatin swish and swallow. COMORBIDITIES: Alcoholism, diabetes mellitus, hypertension, hypothyroidism, and immunoglobulin deficiency. cc: Gerardo Arevalo MD
[2019-12-10] MEDS: TEFLARO 200 MG in NS 250 ML IV SCH (04:38)
[2019-12-10] MEDS: HUMALOG SUBQ SCH (06:19)
--- NOTE | 2019-12-10 07:02 | Diag Imaging Result Doc PS360 ---
EXAM: CHEST-PORTABLE 12/10/2019 HISTORY: dyspnea TECHNIQUE: AP portable at 0613 COMMENT: The inspiration is less optimal than on 12/08/2019. There are atelectatic appearing opacities in both lower lobes particularly the left. This is worse than on the previous study. IMPRESSION: Worsened bibasilar atelectasis. Electronically signed by Phillip Carter 12/10/2019 7:00 AM
[2019-12-10 07:44] LABS: EOS% 3.2 % (0.0-10.0); HEMATOCRIT 23.8 % (42.0-52.0); HEMOGLOBIN 8.4 g/dL (14.0-18.0); LYMPH# 0.48 X1000 (1.2-3.4); LYMPH% 7.6 % (20.5-51.1); MCH 32.6 PG (27-31); MCHC 35.3 g/dL (33-37); MCV 92.2 FL (81-99); MONO# 0.88 X1000 (0.11-0.59); MONO% 13.9 % (1.7-9.3); MPV 10.2 FL (7.4-10.4); NEUT# 4.75 X1000 (1.4-6.5); NEUT% 75.3 % (42.2-75.2); PLT 133 X1000 (130-400); RBC 2.58 XMIL (4.7-6.1); RDW 11.9 % (11.5-14.5); WBC 6.31 X1000 (4.8-10.8)
[2019-12-10 08:13] LABS: CREATININE 7.6 mg/dL (0.7-1.2); POTASSIUM 4.4 mmol/L (3.5-5.1)
[2019-12-10] MEDS ORDERED: XYLOCAINE 1%/EPI 1:100,000 ONE (11:49)
[2019-12-10] MEDS ORDERED: NS 250 ML ONE (11:49)
[2019-12-10] MEDS ORDERED: DIPRIVAN 1% ONE (12:31)
[2019-12-10] MEDS ORDERED: QUELICIN (DOSE) ONE (12:32)
[2019-12-10] MEDS ORDERED: ZOFRAN ONE (12:32)
--- NOTE | 2019-12-10 14:26 | OPERATIVE NOTE ---
PROCEDURE DATE: 12/10/2019 PREOPERATIVE DIAGNOSIS: Acute kidney injury. POSTOPERATIVE DIAGNOSIS: Acute kidney injury. PROCEDURE: Insertion of tunneled central venous dialysis catheter with fluoroscopic and ultrasound guidance. SURGEON: Den Mooney MD. ANESTHESIA: General. ESTIMATED BLOOD LOSS: 2 mL. COMPLICATIONS: None apparent. SPECIMENS: None. FINDINGS: The right internal jugular vein was visualized with ultrasound. It was compressible, patent and without thrombus. Fluoroscopy revealed proper placement of the wire followed by the catheter with the tip left at the superior vena cava-right atrial junction. TECHNIQUE: The patient was brought to the operating room and placed supine on the table. General anesthesia was induced. He was prepped and draped in the usual sterile fashion. The right internal jugular vein was found with ultrasound. The skin over the vein was anesthetized with 1% lidocaine. A small incision was made with an 11 blade. The internal jugular vein was found with ultrasound. It was compressible, patent and without thrombus. We accessed the vein under ultrasound guidance with 1 stick. The wire passed through the needle easily. Fluoroscopy revealed proper placement of the wire to the right atrium. I then made a counter incision below the right clavicle and tunneled the catheter subcutaneously from the lower incision out through the neck incision. The tract over the wire was sequentially dilated, and then the sheath was passed over the wire. The wire and internal dilator removed. The catheter was passed into the sheath. The sheath was removed. The tip of the catheter was positioned correctly with fluoroscopy. Both ports laura back blood easily and were flushed with saline easily. Sterile caps were applied to the port. It was then anchored to the skin with nylon suture. The neck incision was closed with interrupted subcuticular 3-0 Polysorb and Steri-Strips. I then cut the sutures to his femoral Vas-Cath and pulled the vascular catheter out without any trouble. Pressure was held over the wound in the groin and a sterile dressing was applied. There were no apparent complications. cc: Den Mooney MD
--- NOTE | 2019-12-10 14:31 | Diag Imaging Result Doc PS360 ---
EXAM: CHEST-PORTABLE 12/10/2019 HISTORY: status post cvl placement TECHNIQUE: AP portable upright at 1400 COMMENT: There is a double-lumen catheter in the right internal jugular with its tip in the right atrium. There is no pneumothorax or pleural fluid collection. The opacity which was previously present in the left lower lobe on 12/10/2019 at 0613 has diminished slightly. IMPRESSION: Improved pulmonary edema. Electronically signed by Phillip Carter 12/10/2019 2:29 PM
[2019-12-10 15:03] VITALS: BP 150/65
[2019-12-10] MEDS ORDERED: ULTRAM PO PRN (15:09)
--- NOTE | 2019-12-10 15:13 | PROGRESS NOTE ---
DATE: 12/10/2019 SUBJECTIVE: The patient seems to be getting better. It looks like he is going to get a tunneled catheter today, so he can continue dialysis as an outpatient. We will continue with the same management. OBJECTIVE: Vital Signs: Temperature 98.1 degrees, pulse 70, respiratory rate 16, blood pressure 135/77 oxygen saturation 99 on 3 L of nasal cannula. HEENT: Head normocephalic no trauma PERRLA. Neck: Supple. No JVD. No masses. Central trachea. Chest: Mild crepitus at the bases. Abdomen: Soft, nontender, nondistended. No hepatosplenomegaly. Positive bowel sounds. Extremities: 1+ lower extremity edema. No clubbing. No cyanosis. Neurological: The patient is awake, alert. He is oriented x3. No focal deficits. LABORATORY: WBC 6.3, hemoglobin 8.4, hematocrit 23.8, platelet 113,000. Sodium 136, potassium 4.4, chloride 94, bicarbonate 21, BUN 103, creatinine 7.6, glucose 138, calcium 8. ASSESSMENT AND PLAN: 1. Septic shock, cultures are negative. Likely due to pneumonia. Continue with same management. Infectious Disease Department on board. 2. Multifocal pneumonia. Continue with the same treatment. Infectious Disease Department following this patient closely as well. 3. Acute hypoxemic and hypercarbic respiratory failure. This patient was extubated a few days ago. He seems to be improving. He seems to be doing a whole lot better. 4. Thrombocytopenia resolved. 5. Alcohol use and abuse prior to hospitalization. This patient believes that he is controlling his blood sugar with alcohol. We had a large conversation about alcohol and its consequences, i.e., this patient has been highly advised against alcohol use. I will continue with daily cessation education. I am not sure if he seems to understand that this is bad for him. 6. Transient episode of atrial fibrillation with rapid ventricular response, stable. 7. Elevated CK level, probably due to rhabdomyolysis upon admission. We will continue with same management. He is on dialysis. 8. Severe lactic acidosis on presentation, better. 9. Previous history of pancreatitis, likely due to alcohol abuse, but this patient states that it is probably due to infections. 10. Generalized weakness and physical deconditioning. This patient seems to be doing well. 11. Nutritional status. Continue with his diet. As per the patient he is following a Keto diet. 12. Diabetes with a hemoglobin A1c of 7. He is much better compared with a few years ago. In 2013 his hemoglobin A1c was 10.8. 13. Elevated liver function tests, likely a combination of shock liver and alcohol use. 14. Acute kidney injury with no recovery so far likely due to acute tubular necrosis. Continue with dialysis hopefully today he will have a tunneled catheter dialysis to continue dialysis as an outpatient. cc: Cade Webber MD
[2019-12-10] MEDS ORDERED: LASIX IV ONE (17:00)
--- NOTE | 2019-12-10 18:36 | INFECTIOUS DISEASE PROGRESS NO ---
DATE: 12/10/2019 The patient is scheduled to be discharged today. He is being treated for pneumonia. I have written a prescription for Levaquin 250 mg daily for 1 week and then to have the patient come to my office for an appointment in 1 week also. Some of the side effects of Levaquin including rash, diarrhea, seizures, and tendon rupture have been explained to the patient who agrees with treatment. He has been having Levaquin in the hospital and has tolerated it well. The patient is in renal failure and is on hemodialysis. cc: Gerardo Arevalo MD
--- NOTE | 2019-12-10 21:41 | PROVIDER PROGRESS NOTE ---
Progress Note Subjective: He denies any complaints. He voices wanting to get his lab results back today before agreeing to have a tunnel catheter placed. Objective: temperature 98.0, pulse 72, respiration 16, blood pressure 143/81, but she sat 100% on 3 L nasal cannula. General: white male lying in bed and no acute distress. HEENT: Normocephalic atraumatic. Pupils equal and reactive. Conjunctiva pale. Trachea midline. Skin: scattered areas of erythema. NecK: supple, 6 cm JVD observed. Cardiovascular: S1S2, regular rate and rhythm. Heave. Soft systolic murmur. No gallop noted. Respiratory: lungs clear and equal with good air entry. No crackles or rales noted. Abdomen: soft, nondistended nontender. Bowel sounds active. : not inspected Extremities: 1+ edema to BLE and BUE Neurological: alert and oriented to person, place, and time. Labs: WBC 6.31, hemoglobin 8.4, hematocrit 23.8, platelet count 133, sodium 136, potassium 4.4, chloride 94, carbon dioxide 21, BUN 103, creatinine 7.6. Intake 490, output 2195. Impression: Acute kidney injury. Likely ischemic acute tubular necrosis related to sepsis. His BUN and creatinine improved after hemodialysis yesterday with a 2L ultrafiltration. He Tolerated his treatment well. He has been encouraged to have a tunnel catheter placed to anticipate discharge. Blood pressure. Stable. Anemia. Stable. Volume. Slightly expanded. 2L ultrafiltration yesterday with hemodialysis. Lasix 40mg IV ordered. Electrolytes. Stable. Acid base balance. Likely kidney related. Improved. Nutrition. Adequate Medication review. Levaquin PO.
--- NOTE | 2019-12-11 09:00 | DISCHARGE SUMMARY ---
ADMISSION DATE: 11/29/2019 DISCHARGE DATE: 12/10/2019 DISCHARGE DIAGNOSES: 1. Septic shock. 2. Multifocal pneumonia. 3. Acute hypoxemic and hypercarbic respiratory failure, status post extubation. 4. Thrombocytopenia, resolved. 5. Alcohol use and abuse. 6. Transient episode of atrial fibrillation with rapid ventricular response. 7. Elevated CK level upon admission, likely due to rhabdomyolysis. 8. Severe lactic acidosis on presentation. 9. Previous history of pancreatitis due to likely alcohol use. 10. Generalized weakness and physical deconditioning. 11. Type 2 diabetes with a hemoglobin A1c of 7. 12. Elevated liver function tests, likely a combination of shock liver and alcohol use. 13. Acute kidney injury with no recovery, probably due to acute tubular necrosis, on dialysis, status post pleural catheter placement. PROCEDURES PERFORMED: 1. Chest x-ray dated 11/29/2019, impression: Negative exam. 2. Head CT scan dated 11/29/2019, impression: No hemorrhage, no injury. 3. Chest x-ray dated 11/30/2019, impression: Bibasilar pulmonary edema versus pneumonia plus/minus atelectasis. 4. Chest x-ray dated 11/30/2019, impression: NG tube is not in the stomach. 5. Chest x-ray dated 12/01/2019, impression: Interval slight improvement. 6. Chest, abdomen, and pelvis CT scan dated 12/01/2019, impression: Moderate indeterminate opacification of both lower lobes indicating any combination of atelectasis, infiltration or effusion, possible colitis, nonspecific wall thickening of the urinary bladder, possible cystitis. 7. Chest x-ray dated 12/02/2019, impression: Significant improvement in the right infiltrate throughout the right lung. 8. Chest x-ray dated 12/03/2019, impression: Improved bibasilar atelectasis versus pneumonia. 9. Chest x-ray dated 12/04/2019, impression: Worsening left lower lobe infiltrate or atelectasis. 10. Chest x-ray dated 12/05/2019, impression: Interval removal of ET tube and NG tube, stable chest otherwise. 11. Chest x-ray dated 12/06/2019, impression: Pulmonary edema. 12. Chest x-ray dated 12/08/2019, impression: Atelectasis versus infiltrate in the right lower lung with tiny bilateral pulmonary effusion. 13. On 12/10/2019, impression: Bibasilar atelectasis. 14. Chest x-ray dated 12/10/2019, impression: Improved pulmonary edema. HOSPITAL COURSE: A 64-year-old, male, brought in by EMS after they were called by a neighbor. He was admitted on 11/29/2019. The patient was found down, unresponsive, with whiskey bottles all over the floor apparently. There is no heat in his residence. Initial blood pressures were 80s/40s, and rectal temperature was 85. He was initially agitated. Further workup in the emergency department showed profound acidosis, alcohol level around 300, plasma lactate of 28, CK level 3737, and a pH less than 6.8. He was started on the initial rewarming process. CT scan did not show any acute disease. He was empirically covered with antibiotics, given sodium bicarbonate, IV thiamine, IV levothyroxine, hydrocortisone. Dr. Nelson was consulted. Surprisingly, he remained awake, and he was following some commands. He did not answer any questions. He was profoundly dehydrated. He was admitted to the ICU. He was placed on the bicarb drip. A central venous dialysis catheter was placed because his kidney function basically was really bad, and because of the acidosis, like I said, with an initial blood gas of less than 6.8. He was given vasopressor support, broad-spectrum antibiotics for presumed sepsis, and he was at high risk of acute tubular necrosis. Initially, we suspected mesenteric ischemia/necrotic intestine. He was, like I said, placed on antibiotics, and we started dialysis on this patient. He was then having hypoxemic and hypercarbic respiratory failure, and he was actually then intubated. We remained giving him bicarbonate drip. The hypothermia eventually resolved. For the alcohol abuse, we kept this patient on close monitoring for any kind of alcohol withdrawal, and he was given thiamine. Echocardiogram was done and suggested some diastolic dysfunction, ejection fraction of 55%, and mild elevation in the central venous pressure. Will continue with aggressive management, and the patient has been recovering slowly. The cultures were negative, but we found that this patient had multifocal lower lobe pneumonia. He started having thrombocytopenia, which was probably related to the septic shock, and also he started having atrial fibrillation with RVR. About the thrombocytopenia, it also can be multifactorial, not only because of the septic shock, but also by his history of alcohol abuse or maybe medications as well. Anyway, Hematology/Oncology Department was consulted. We have been trending his lab work every day. LFTs were elevated, likely because of shock liver versus alcohol use. The patient was extubated, and he started to get better slowly, but the kidney function never recovered, so we continued with dialysis. After recovering, the patient was making his own decisions, and he was refusing treatment on and off. He refused treatment with steroids, which were placed initially. Also refused treatment with antibiotics because he believed the antibiotics were causing the thrombocytopenia, and also he refused treatment with IVIG, and probably something else. I had multiple large conversations with this patient about alcohol use and abuse and its consequences. Also, I had a really large conversation with this patient about not refusing treatment because basically these treatments were saving his life, but I am not quite sure if he understood all of that. He was trying to convince me that alcohol actually is controlling his diabetes at home. Also, he states that he was following a keto diet, so he has been refusing some of the food that we tried to provide for him. The patient is completely awake, alert, and he is oriented. He is not needing any more oxygen. He has been receiving antibiotics on and off because he has been refusing, but he is getting better. Today, we have placed a [*] catheter for dialysis because his kidney function unfortunately is not back yet. He will be discharged home. He will go for dialysis tomorrow, I believe at 11:45 a.m. He will continue with levofloxacin at home, suggested by Infectious Disease Department, and he will follow up with Dr. Arevalo in 1 week. This has been explained to the patient and also the family member at the bedside, which is his sister. PHYSICAL EXAMINATION: Vital Signs: Temperature 98 degrees, pulse 84, respiratory rate 16, blood pressure 150/65, oxygen saturation 96 on room air. HEENT: Head normocephalic. No trauma. PERRLA. Neck: Supple. No JVD. No masses. Central trachea. Chest: Decreased breath sounds at the bases with some crepitus. Abdomen: Soft, nontender, nondistended. No hepatosplenomegaly. Positive bowel sounds. Extremities: Trace lower extremity edema. No clubbing. No cyanosis. Neurological: The patient is awake. He is alert. He is oriented x3. No focal neurological deficits, but some weakness. LABORATORY DATA: WBC 6, hemoglobin 8.4, hematocrit 23.8, platelets 133,000. Sodium 136, potassium 4.4, chloride 94, bicarbonate 21, BUN 103, creatinine 7.6, glucose 138, calcium 8. DISCHARGE MEDICATIONS: I will stop, for now, some of his medications, and also I will modify some of his medications because of his current condition with acute kidney injury. For instance, benazepril can cause more kidney dysfunction, and he is in the process of recovery, so for now I will hold it. He was getting insulin Lantus, around I think 25 or 30 units at home, but I decreased that to 10 units because it is working for him during this hospitalization. Also, I will hold some of his medications for diabetes because his blood sugar is not wholly controlled, but I will avoid the risk of having hypoglycemia. So discharge medications are Proscar 5 mg p.o. daily, Lantus 10 units subcutaneously daily, levofloxacin 250 mg p.o. daily for 1 week, tamsulosin 0.4 mg p.o. daily, and thiamine 100 mg p.o. daily. Again, these medications will be modified in the future, depending on his recovery and his kidney function. TIME SPENT: Time discharging this patient was 40 minutes. cc: Cade Webber MD
== END 2019-12-10 18:29 | disposition home or self-care (01) | DRG 870 ==
LOC: EDBD → SUPCPDRO → ED 13:55 → SUATTDRO 17:22 → EDIPHOLD 17:22 → ICU 11-30 15:01 → 3N 12-06 11:13
PROVIDERS: ATTEND Internal Medicine